=== PATIENT | male | born 1955 | race Caucasian/White ===

== ENCOUNTER 2016-04-17 14:17 | Outpatient (RCR) | payer BC, OTHER ==
[~2016-04-17 14:17] MED LIST: ACHYD1T PO; ASP325T PO; ASP81CT PO; CIPR500T78 PO; FEXO-14 PO; FLC100T1 PO; HCT25T PO; HYDR-3720 PO; HYDR-3812 PO; HYDR-700 PO; LEVO750T9 PO; LOSA50TA6 PO; LSRT50T PO; MAGIC1 PO; OMEP40CA36 PO; RIVA20TA2 PO
[2016-05-15] MEDS ORDERED: ATOR10TA66 PO (10:02)
[2016-05-15] MEDS ORDERED: HYDR-700 PO (10:02)
[2016-05-15] MEDS ORDERED: LEVO25TA5 PO (10:02)
[2016-05-15] MEDS ORDERED: ASPI-999 PO (10:02)
[2016-05-15] MEDS ORDERED: PANT40TA2 PO (13:59)
[2016-05-15] MEDS ORDERED: SUCR1TAB36 PO (13:59)
== END 2016-07-16 | disposition home or self-care (01) ==
LOC: ONC 14:17
PROVIDERS: ATTEND Internal Medicine Hematology & Oncology
DX: C21.0 Malignant neoplasm of anus, unspecified (principal); Z45.2 Encounter for adjustment and management of vascular access device
CPT/HCPCS: 96523; 99213

== ENCOUNTER → 2016-09-02 | Outpatient (CLI) | payer BC ==
[~2016-09-02] MED LIST changes: +ASPI-999 PO; +ATOR10TA66 PO; +LEVO25TA5 PO; +PANT40TA2 PO; +SUCR1TAB36 PO
--- NOTE | 2016-09-02 13:42 | Diagnostic Imaging Report ---
EXAMINATION: Upper and lower extremity pressure measurements of ankle/brachial index and pulse volume recording at the ankle. INDICATION: Claudication FINDINGS: The ankle/brachial index on the right side is 1.1, (1.1 DP, and 1.1 PT) and on the left is 1.1 (1.1 DP, and 1.1 PT). Pulse volume recording waveforms demonstrate no significant abnormality. There is a discrepancy in the brachial artery pressures with 122 systolic pressure in the right arm compared to 141 systolic pressure in the left arm. This could relate to proximal right upper extremity arterial disease. IMPRESSION: Normal BALJINDER, bilaterally. Slight decrease in systolic arterial pressure in the right upper extremity. Correlate clinically and with right upper extremity arterial ultrasound if needed. Dictated by: Dictated on workstation # [id number]
--- NOTE | 2016-09-02 13:48 | Diagnostic Imaging Report ---
PROCEDURE: US Bilateral lower extremity arterial. TECHNIQUE: Multiple real-time grayscale images are obtained through both lower extremity arterial systems with color Doppler imaging and color Doppler spectral analysis. INDICATION: Peripheral vascular disease. FINDINGS: Color Doppler is seen throughout the arteries in both lower extremities with biphasic waveforms seen bilaterally. The grayscale images in the femoropopliteal segments demonstrate minimal intimal atherosclerotic plaque. The velocities are between 66-125 cm/s on the left side and 70-150 cm/s on the right side. IMPRESSION: No evidence of significant atherosclerotic disease in the lower extremities. Dictated by: Dictated on workstation # [id number]
== END ==
LOC: RAD 09:57
PROVIDERS: ATTEND Internal Medicine
DX: I73.9 Peripheral vascular disease, unspecified (principal); I70.1 Atherosclerosis of renal artery
CPT/HCPCS: 93922; 93925

== ENCOUNTER → 2016-09-10 | Outpatient (RCR) | payer OTHER | END | disposition home or self-care (01) | PROVIDERS: ATTEND Orthopaedic Surgery | DX: M75.01 Adhesive capsulitis of right shoulder (principal) ==

== ENCOUNTER → 2016-09-11 | Outpatient (CLI) | payer BC ==
--- NOTE | 2016-09-11 13:18 | Diagnostic Imaging Report ---
PROCEDURE: US Carotid Duplex Bilateral. TECHNIQUE: Multiple real-time grayscale images were obtained over the carotid arteries in various projections bilaterally. Additional duplex Doppler and color Doppler images were also obtained. INDICATION: Carotid artery stenosis. FINDINGS: Mild atherosclerotic plaque is seen along the carotid bifurcation. There is color Doppler demonstrating patency of the common, internal and external carotid arteries bilaterally. There is antegrade flow noted in the vertebral arteries on both sides. Peak systolic velocities are 69, 97 and 88 cm/s in the right and 72, 96 and 84 cm/s in the left ICA from proximal to distal. ICA/CCA ratios are up to 1.1 on the right and up to 0.8 on the left. IMPRESSION: Mild atherosclerotic plaque with estimated underlying stenosis in the range of 0-40% bilaterally. Dictated by: Dictated on workstation # [id number]
== END ==
LOC: RAD 09:52
PROVIDERS: ATTEND Internal Medicine
DX: I65.29 Occlusion and stenosis of unspecified carotid artery (principal)
CPT/HCPCS: 93880

== ENCOUNTER 2016-10-15 15:25 | Outpatient (RCR) | payer BC, OTHER ==
[2016-12-26] MEDS ORDERED: ATOR10TA66 PO (11:33)
[2016-12-26] MEDS ORDERED: LEVO25TA5 PO (11:33)
[2016-12-26] MEDS ORDERED: PANT40TA3 PO (11:33)
== END 2017-01-13 | disposition home or self-care (01) ==
LOC: ONC 15:25
PROVIDERS: ATTEND Internal Medicine Hematology & Oncology
DX: Z08 Encounter for follow-up examination after completed treatment for malignant neoplasm (principal); Z85.048 Personal history of other malignant neoplasm of rectum, rectosigmoid junction, and anus; D66 Hereditary factor VIII deficiency; I10 Essential (primary) hypertension; E78.00 Pure hypercholesterolemia, unspecified; K21.9 Gastro-esophageal reflux disease without esophagitis; Z86.711 Personal history of pulmonary embolism; Z86.718 Personal history of other venous thrombosis and embolism; Z79.01 Long term (current) use of anticoagulants; Z79.899 Other long term (current) drug therapy; Z92.3 Personal history of irradiation
CPT/HCPCS: 99213

== ENCOUNTER 2016-11-07 13:00 | Outpatient (RCR) | payer OTHER | END 2016-11-07 13:24 | disposition home or self-care (01) | PROVIDERS: ATTEND Orthopaedic Surgery | DX: M75.01 Adhesive capsulitis of right shoulder (principal) ==

== ENCOUNTER → 2016-12-05 | Outpatient (CLI) | payer BC | LOC: PREOP 06:52 | PROVIDERS: ATTEND Surgery | DX: Z01.818 Encounter for other preprocedural examination (principal); C21.0 Malignant neoplasm of anus, unspecified ==

== ENCOUNTER 2016-12-26 05:40 | Outpatient (CLI) | payer BC ==
[~2016-12-26] VITALS: Ht 172.7 cm; Wt 72.6 kg
[2016-12-26] MEDS ORDERED: ATOR10TA66 PO (11:33)
[2016-12-26] MEDS ORDERED: PANT40TA3 PO (11:33)
[2016-12-26] MEDS ORDERED: LEVO25TA5 PO (11:33)
== END 2016-12-26 11:43 ==
LOC: PREOP 05:40
PROVIDERS: ATTEND Surgery
DX: Z01.818 Encounter for other preprocedural examination (principal); Z12.11 Encounter for screening for malignant neoplasm of colon; C21.0 Malignant neoplasm of anus, unspecified

== ENCOUNTER 2016-12-27 11:30 | Day surgery (SDC) | payer BC ==
[~2016-12-27] VITALS: Ht 172.7 cm; Wt 72.6 kg
[~2016-12-27 11:30] MED LIST changes: +PANT40TA3 PO
[2016-12-27] MEDS ORDERED: NS IV 500 ML 500 ML ONE (11:44)
--- NOTE | 2016-12-27 11:47 | Conscious Sedation/ASA ---
Conscious Sedation Pre-Proced Time Reviewed: 11:40 ASA Class: 2 Airway Mallampati Classification: ([place] appropriate class) I. II. III, IV Lungs Heart ASA score ASA 1: a normal healthy patient ASA 2: a patient with a mild systemic disease (mid diabetes, controlled hypertension, obesity ASA 3: a patient with a severe systemic disease that limits activity (angina , COPD, prior Myocardial infarction) ASA 4: a patient with an incapacitating disease that is a constant threat to life (CHF, renal failure) ASA 5: a moribund patient not expected to survive 24 hrs. (ruptured aneurysm) ASA 6: a declared brain patient whose organs are being harvested. For emergent operations, add the letter E after the classification Grade 2 Sedation Plan: Analgesia, Amnesia, Plan communicated to team members, Discussed options with patient/fam, Discussed risks with patient/fam Note The patient is an appropriate candidate to undergo the planned procedure, sedation, and anesthesia. The patient immediately re-assessed prior to indication. ROBERT ALBERTS MD Dec 27, 2016 11:47 am
--- NOTE | 2016-12-27 11:48 | Conscious Sedation/ASA ---
Conscious Sedation Pre-Proced Time Reviewed: 11:40 ASA Class: 2 Airway Mallampati Classification: ([place] appropriate class) I. II. III, IV Lungs Heart ASA score ASA 1: a normal healthy patient ASA 2: a patient with a mild systemic disease (mid diabetes, controlled hypertension, obesity ASA 3: a patient with a severe systemic disease that limits activity (angina , COPD, prior Myocardial infarction) ASA 4: a patient with an incapacitating disease that is a constant threat to life (CHF, renal failure) ASA 5: a moribund patient not expected to survive 24 hrs. (ruptured aneurysm) ASA 6: a declared brain patient whose organs are being harvested. For emergent operations, add the letter E after the classification Grade 2 Sedation Plan: Analgesia, Amnesia, Plan communicated to team members, Discussed options with patient/fam, Discussed risks with patient/fam Note The patient is an appropriate candidate to undergo the planned procedure, sedation, and anesthesia. The patient immediately re-assessed prior to indication. ROBERT ALBERTS MD Dec 27, 2016 11:48 am
--- NOTE | 2016-12-27 11:49 | Progress Note-Pre Operative ---
Pre-Operative Progress Note H&P Reviewed The H&P was reviewed, patient examined and no changes noted. Date Seen by Provider: Dec 27, 2016 Time Seen by Provider: 11:45 Date H&P Reviewed: Dec 27, 2016 Time H&P Reviewed: 11:40 Pre-Operative Diagnosis: hx anal cell cancer ROBERT ALBERTS MD Dec 27, 2016 11:49 am
[2016-12-27] MEDS ORDERED: HYDROcodone/APAP 5 MG/325 MG (LORTAB) TAB PO PRN (12:00)
[2016-12-27] MEDS ORDERED: ACETAMINOPHEN 325 MG TABLET/CAPLET (TYLENOL) PO PRN (12:00)
[2016-12-27] MEDS ORDERED: morphine INJ 10 MG/ML 1ML (SYR OR VIAL) IV PRN (12:00)
[2016-12-27] MEDS ORDERED: ONDANSETRON 4 MG/2 ML (SDV) Z0FRAN IV PRN (12:00)
[2016-12-27] MEDS ORDERED: NS IV 500 ML 500 ML IV PRN (12:30)
[2016-12-27] MEDS ORDERED: MIDAZOLAM 2 MG/2 ML (VERSED) VIAL ONE ×4 (12:40→13:12)
[2016-12-27] MEDS ORDERED: fentaNYL INJECTION 100 MCG/2 ML AMP ONE ×2 (12:40→13:05)
[2016-12-27] MEDS: fentaNYL INJECTION 100 MCG/2 ML AMP IVP PRN ×4 (12:42→13:15)
[2016-12-27] MEDS: MIDAZOLAM 2 MG/2 ML (VERSED) VIAL IVP PRN ×4 (12:45→13:20)
[2016-12-27 13:50] VITALS: BP 92/60
--- NOTE | 2016-12-27 14:19 | Progress Note-Post Operative ---
Post-Operative Progess Note Surgeon (s)/Chalk Tester (s) Surgeon ROBERT ALBERTS MD Chalk Tester: none Pre-Operative Diagnosis hx anal cell cancer Post-Operative Diagnosis chronic stage 2 ext and int hemorrhoids, mild distal anal stricture. Procedure & Operative Findings Date of Procedure 12/27/16 Procedure Performed/Findings Colonoscopy with bx. Anesthesia Type CS Estimated Blood Loss Estimated blood loss (mL): minimal Specimens/Packing Specimens Removed distal anal stricture ROBERT ALBERTS MD Dec 27, 2016 2:19 pm
[2016-12-27 14:20] VITALS: BP 123/85
--- NOTE | 2016-12-27 14:20 | Discharge Inst-Surgical ---
D/C Lap Instructions-ARISTEO Follow Up 5 years. Activity as tolerated High Fiber Diet 25g or more per day Avoid Alcohol, Caffeine, Spicy [place] and Acid foods. Drink 64 fluid oz or more of fluids per day. Symptoms to Report: Fever over 101 degree F, Nausea/Vomiting If any problems/questions: Contact your physician or go to Emergency Room ROBERT ALBERTS MD Dec 27, 2016 2:20 pm
[2016-12-27 14:46] VITALS: BP 123/85
--- NOTE | 2016-12-27 15:27 | OPERATIVE REPORT ---
DATE OF SERVICE: 12/27/2016 ATTENDING PRIMARY CARE PHYSICIAN: Dr. Holbrook. PREOPERATIVE DIAGNOSIS: History of anal cell cancer. POSTOPERATIVE DIAGNOSIS: 1. Mild chronic stage II external and internal hemorrhoids. 2. No recurrent tumor. 3. Moderate sigmoid diverticulosis. PROCEDURE: Colonoscopy with biopsy. SURGEON: Dr. Alberts. ANESTHESIA: Conscious sedation. ESTIMATED BLOOD LOSS: Minimal. FINDINGS: Chronic stage II external and internal hemorrhoids. There was a mild palpable stricture; however, no recurrent tumor. Moderate sigmoid diverticulosis with no mucosal inflammatory changes. The remainder of the colon was normal. DISPOSITION: The patient tolerated the procedure well. The patient is a 61-year-old man who had initially seen md in 2009. At the time he was experiencing constipation and hemorrhoidal flareups. A colonoscopy was performed in November 2009 which showed chronic stage II external and internal hemorrhoids as well as a moderate sigmoid diverticulosis. In 2013, he had developed diarrhea as well as increased flatulence and blood per rectum. He was found to have a lesion in the anal canal which was circumferential and hard. This was biopsied and consistent with a moderately differentiated squamous cell cancer. He was referred to radiation oncology and underwent a combination of chemotherapy and radiation through 03/2014. He has undergone followup colonoscopies in 05/2014 where biopsies were taken which were benign. He then underwent another followup colonoscopy in 08/2015 and again a ridge of fibrous tissue was identified; however, biopsies negative for malignancy. At this time, he states that he is doing well and tolerating a regular diet and having normal bowel movements. The patient was brought to the endoscopy suite, laid in the left lateral decubitus position. After adequate IV pain and sedative medications and conscious sedation anesthesia, a digital rectal examination was performed. Chronic stage II external and internal hemorrhoids were identified which were not actually edematous or inflamed and no bleeding. Normal sphincter tone was felt. A rim along the squamocolumnar epithelial junction was identified which was thin and nonfirm and no palpable masses, more likely consistent with a benign stricture. This was then visualized by endoscopy and again is most likely consistent with a benign stricture. Prostate gland was palpable and appeared normal. The endoscope was then intubated into the anus and several biopsies were taken of the stricture with forceps, with visualization of good hemostasis. The endoscope was then advanced to the sigmoid colon where a moderate sigmoid diverticulosis was identified. There were no mucosal inflammatory changes to indicate any active diverticulitis. The endoscope was then advanced through the remainder of the descending, transverse and ascending colon the cecum. These segments were normal. There were no polyps or any neoplasms identified. The endoscope was then slowly withdrawn taking a second look and suctioning of residual air with no additional findings. The patient tolerated the procedure well. We will recommend continued medical management with a high fiber diet with at least 30 grams of fiber per day as well as at least 64 fluid ounces of water to promote soft stools on a daily basis. Since his therapy for the squamous cell cancer results have been benign, his last tumor was and at this time this colonoscopy appears to be benign. We will recommend further surveillance at the discretion of oncology as well as symptomatology. Job ID: [id number] DocumentID: [id number] Dictated Date: 12/27/2016 13:35:59 Microbiology Coordinator Date: 12/27/2016 15:26:36 Dictated By: ROBERT ALBERTS MD
== END 2016-12-27 14:35 | disposition home or self-care (01) ==
LOC: ENDO 11:30
PROVIDERS: ATTEND Surgery
DX: Z08 Encounter for follow-up examination after completed treatment for malignant neoplasm (principal); Z85.048 Personal history of other malignant neoplasm of rectum, rectosigmoid junction, and anus; K64.1 Second degree hemorrhoids; K57.30 Diverticulosis of large intestine without perforation or abscess without bleeding; E78.00 Pure hypercholesterolemia, unspecified; I10 Essential (primary) hypertension; K21.9 Gastro-esophageal reflux disease without esophagitis; I73.9 Peripheral vascular disease, unspecified; Z86.73 Personal history of transient ischemic attack (TIA), and cerebral infarction without residual deficits; Z92.21 Personal history of antineoplastic chemotherapy; Z92.3 Personal history of irradiation; Z79.899 Other long term (current) drug therapy

== ENCOUNTER 2017-04-10 08:37 | Outpatient (RCR) | payer BC ==
[~2017-04-10 08:37] MED LIST changes: +ACHD5005 PO; -HYDR-3812 PO
== END 2017-07-09 | disposition home or self-care (01) ==
LOC: ONC 08:37
PROVIDERS: ATTEND Internal Medicine Hematology & Oncology
DX: Z08 Encounter for follow-up examination after completed treatment for malignant neoplasm (principal); Z85.048 Personal history of other malignant neoplasm of rectum, rectosigmoid junction, and anus; D66 Hereditary factor VIII deficiency; I10 Essential (primary) hypertension; E78.00 Pure hypercholesterolemia, unspecified; K21.9 Gastro-esophageal reflux disease without esophagitis; H53.9 Unspecified visual disturbance; Z86.711 Personal history of pulmonary embolism; Z86.718 Personal history of other venous thrombosis and embolism; Z79.01 Long term (current) use of anticoagulants; Z79.899 Other long term (current) drug therapy; Z92.3 Personal history of irradiation
CPT/HCPCS: 99213

== ENCOUNTER 2017-08-28 08:30 | Outpatient (RCR) | payer BC | END 2017-11-26 | disposition home or self-care (01) | LOC: ONC 08:30 | PROVIDERS: ATTEND Internal Medicine Hematology & Oncology | DX: Z08 Encounter for follow-up examination after completed treatment for malignant neoplasm (principal); Z85.048 Personal history of other malignant neoplasm of rectum, rectosigmoid junction, and anus; D66 Hereditary factor VIII deficiency; I10 Essential (primary) hypertension; E78.00 Pure hypercholesterolemia, unspecified; K21.9 Gastro-esophageal reflux disease without esophagitis; H53.9 Unspecified visual disturbance; Z86.711 Personal history of pulmonary embolism; Z86.718 Personal history of other venous thrombosis and embolism; Z79.01 Long term (current) use of anticoagulants; Z79.899 Other long term (current) drug therapy; Z92.3 Personal history of irradiation | CPT/HCPCS: 99213 ==

== ENCOUNTER 2018-02-25 09:29 | Outpatient (RCR) | payer BC ==
[2018-03-11] MEDS ORDERED: LOSA50TA7 PO (11:02)
[2018-03-11] MEDS ORDERED: RIVA20TA PO (11:03)
[2018-03-11] MEDS ORDERED: HYDR-700 PO (11:03)
[2018-03-11] MEDS ORDERED: ASPI325T32 PO (11:03)
[2018-03-11] MEDS ORDERED: ASPI-983 PO (11:03)
[2018-03-11] MEDS ORDERED: CALC300T4 PO (11:05)
[2018-03-12] MEDS ORDERED: ATOR80TA76 PO (10:37)
[2018-03-12] MEDS ORDERED: ASPI-983 PO (13:51)
[2018-03-18] MEDS ORDERED: ATOR80TA76 PO (15:50)
== END 2018-05-26 | disposition home or self-care (01) ==
LOC: ONC 09:29
PROVIDERS: ATTEND Internal Medicine Hematology & Oncology
DX: Z08 Encounter for follow-up examination after completed treatment for malignant neoplasm (principal); Z85.048 Personal history of other malignant neoplasm of rectum, rectosigmoid junction, and anus; D66 Hereditary factor VIII deficiency; I10 Essential (primary) hypertension; E78.00 Pure hypercholesterolemia, unspecified; K21.9 Gastro-esophageal reflux disease without esophagitis; H53.9 Unspecified visual disturbance; Z86.711 Personal history of pulmonary embolism; Z86.718 Personal history of other venous thrombosis and embolism; Z79.01 Long term (current) use of anticoagulants; Z79.899 Other long term (current) drug therapy; Z92.3 Personal history of irradiation
CPT/HCPCS: 99213

== ENCOUNTER 2018-03-10 11:14 | Inpatient (IN) | payer BC ==
[~2018-03-10] VITALS: Ht 172.7 cm; Wt 75.2 kg
[2018-03-10] VITALS (17 sets, daily range): BP systolic 104–155; BP diastolic 62–98
[2018-03-10 11:34] LABS: BASOPHILS % (AUTO) 0 % (0-10); EOSINOPHILS % (AUTO) 1 % (0-10); HEMATOCRIT 33 % (40-54); HEMOGLOBIN 10.3 G/DL (13.3-17.7); LYMPHOCYTES # (AUTO) 1.7 X 10^3 (1.0-4.0); LYMPHOCYTES % (AUTO) 34 % (12-44); MEAN CORPUSCULAR HEMOGLOBIN 23 PG (25-34); MEAN CORPUSCULAR HGB CONC 31 G/DL (32-36); MEAN CORPUSCULAR VOLUME 73 FL (80-99); MEAN PLATELET VOLUME 8.7 FL (7.4-10.4); MONOCYTES # (AUTO) 0.8 X 10^3 (0.0-1.0); MONOCYTES % (AUTO) 15 % (0-12); NEUTROPHILS # (AUTO) 2.5 X 10^3 (1.8-7.8); NEUTROPHILS % (AUTO) 50 % (42-75); PLATELET COUNT 320 10^3/uL (130-400); RED BLOOD COUNT 4.51 10^6/uL (4.35-5.85); RED CELL DISTRIBUTION WIDTH 20.7 % (10.0-14.5)
[2018-03-10] MEDS ORDERED: NS 250 ML (IVPB) BAG IV ONE (11:45)
[2018-03-10] MEDS ORDERED: IOHEXOL 350 MG/ML 100 ML (OMNIPAQUE 350) VIAL IV ONE (11:45)
[2018-03-10 11:54] LABS: FIBRIN DEGRADATION PRODUCTS 0.47 UG/ML (0.00-0.49); PROTHROMBIN TIME PATIENT 22.9 SEC (12.2-14.7)
[2018-03-10 11:58] LABS: ALANINE AMINOTRANSFERASE 14 U/L (0-55); ALBUMIN 4.2 GM/DL (3.2-4.5); ALKALINE PHOSPHATASE 46 U/L (40-136); BILIRUBIN,TOTAL 0.5 MG/DL (0.1-1.0); BUN/CREATININE RATIO 11; CALCIUM 9.7 MG/DL (8.5-10.1); CARBON DIOXIDE 19 MMOL/L (21-32); CHLORIDE 105 MMOL/L (98-107); CREATININE SERUM 1.23 MG/DL (0.60-1.30); GFR ESTIMATED 59; GLUCOSE 104 MG/DL (70-105); POTASSIUM 3.8 MMOL/L (3.6-5.0); SODIUM 136 MMOL/L (135-145); TOTAL PROTEIN 7.9 GM/DL (6.4-8.2)
--- NOTE | 2018-03-10 12:29 | Diagnostic Imaging Report ---
PROCEDURE: CT angiography of the head and CT angiography of the neck with and without contrast. TECHNIQUE: Contiguous noncontrast images were obtained from the skull base through the vertex. After intravenous contrast administration, helical CT angiography of the neck was performed. Source data was reformatted into multiple 2D MIP projections. Delayed post contrast acquisition was also obtained. INDICATION: Left arm and leg numbness. Dizziness. Fall. COMPARISON: CT cervical spine without contrast 03/10/2018. FINDINGS: Noncontrast head CT demonstrates moderate generalized cerebral and cerebellar parenchymal volume loss. 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 No CT evidence of an acute infarct. No intracranial hemorrhage, mass effect, hydrocephalus or extra-axial fluid collections. No abnormal intracranial enhancement on delayed postcontrast imaging. The calvarium and skull base are intact. The paranasal sinuses and mastoids are clear. CTA demonstrates conventional aortic arch. The basilar, bilateral carotid, vertebral, anterior cerebral, middle cerebral and posterior cerebral arteries are widely patent without evidence of aneurysm or dissection. The dural venous sinuses are patent. Advanced spondylotic changes in the cervical spine are greatest at C4-C7. No acute osseous findings. No evidence of high-grade spinal canal narrowing on this non-intrathecal contrast exam. The visualized paravertebral soft tissues are unremarkable. The lung apices are clear. IMPRESSION: 1. No acute intracranial CT findings. 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 2. No high-grade arterial narrowing, aneurysm or dissection involving the major arteries in the head and neck. Dictated by: Dictated on workstation # [id number]
--- NOTE | 2018-03-10 12:42 | Diagnostic Imaging Report ---
PROCEDURE: CT cervical spine without contrast. TECHNIQUE: Multiple contiguous axial images were obtained through the cervical spine without the use of intravenous contrast. Sagittal and coronal reformations were then performed. INDICATION: Trauma. Fall. COMPARISON: CTA head and neck also performed today. FINDINGS: Minimal anterolisthesis of C3 on C4 and retrolisthesis of C5 on C6. Alignment is otherwise unremarkable. Vertebral body heights are preserved. No fractures. Advanced degenerative endplate changes are greatest at C4-C7. No evidence of high-grade spinal canal narrowing on this non-intrathecal contrast exam. The visualized paravertebral soft tissues are unremarkable. The lung apices are clear. IMPRESSION: 1. Advanced spondylotic changes in the cervical spine are greatest at C4-C7. 2. No acute CT findings. Dictated by: Dictated on workstation # [id number]
--- NOTE | 2018-03-10 12:50 | Diagnostic Imaging Report ---
INDICATION: Syncopal episode. TIME OF EXAM: 12:19 PM Correlation is made with prior study from 12/11/2015. FINDINGS: The heart size is stable. Lungs appear to be clear. No infiltrates are seen. No effusion or pneumothorax is detected. IMPRESSION: No acute abnormality is detected. Dictated by: Dictated on workstation # [id number]
[2018-03-10] MEDS ORDERED: TETANUS,DIPTH,PERTUSS P/F (BOOSTRIX) 0.5 ML VIAL IM ONE (13:30)
[2018-03-10 14:12] LABS: BILIRUBIN,URINE NEGATIVE (NEGATIVE); CLARITY,URINE CLEAR; COLOR,URINE YELLOW; GLUCOSE, URINE (UA) NEGATIVE (NEGATIVE); KETONES,URINE NEGATIVE (NEGATIVE); LEUKOCYTE ESTERASE ,URINE NEGATIVE (NEGATIVE); NITRITE,URINE NEGATIVE (NEGATIVE); PH,URINE 5 (5-9); PROTEIN,URINE NEGATIVE (NEGATIVE); UROBILINOGEN,URINE NORMAL (NORMAL)
[2018-03-10 14:18] LABS: BACTERIA,URINE NEGATIVE /HPF
--- NOTE | 2018-03-10 15:29 | ED Neurological Problem ---
General Chief Complaint: Neuro-Stroke Like Symptoms Stated Complaint: HEAD INJ Nursing Triage Note: pt presents to ed with complaints of l sided weakness in arm and leg after falling over when working outside. pt states he was doing some physical labor when working and felt lightheaded. pt states he tried to assist himself to the groung but fell backwards hitting head on brick wall. pt states he does has hx of blood clots and takes xeralto. pt denies head or neck pain or loc. pt last known well time was around 1045. Nursing Sepsis Screen: No Definite Risk Source: patient, EMS Exam Limitations: no limitations History of Present Illness Date Seen by Provider: Mar 10, 2018 Time Seen by Provider: 11:15 Initial Comments This 62-year-old man presents to the emergency room via EMS after collapsing and falling into a wall while working outside. He struck the back of his head on the wall resulting in a laceration. He denies any loss of consciousness. Patient states sudden onset of weakness in his legs was the cause of his fall. He has persistent weakness in the left leg and in the left arm on arrival. Stroke activation was paged and patient was taken fairly promptly to CT scan. I -STAT was performed to confirm acceptable creatinine before CT angiogram of the head and neck was performed. Patient has a history of DVT and stroke. He is presently on Xarelto for prophylaxis. Patient drinks daily but has not had any alcohol today. Patient did take his Xarelto this morning. Allergies and Home Medications Allergies Coded Allergies: lisinopril (Verified Allergy, Severe, LIPS SWELLING, 12/26/16) Nitrate (Verified Allergy, Intermediate, HIVES, 12/26/16) amlodipine besylate (Verified Adverse Reaction, Unknown, LOW BP, 12/26/16) Uncoded Allergies: MARIANNA (Adverse Reaction, Intermediate, COLD, 01/30/12) Home Medications Aspirin 81 Mg Tab.chew, 81 MG PO DAILY Prescribed by: MARK ARRIETA on 05/15/16 1002 Atorvastatin Calcium 10 Mg Tablet, 10 MG PO HS, (Reported) Levothyroxine Sodium 25 Mcg Tablet, 25 MCG PO DAILY, (Reported) Losartan Potassium 50 Mg Tab, 50 MG PO DAILY, (Reported) Pantoprazole Sodium 40 Mg Tablet.dr, 40 MG PO DAILY, (Reported) Rivaroxaban 20 Mg Tablet, 20 MG PO DAILY, (Reported) Patient Home Medication List Home Medication List Reviewed: Yes Review of Systems Review of Systems Constitutional: no symptoms reported Eyes: No Symptoms Reported Ears, Nose, Mouth, Throat: no symptoms reported Respiratory: no symptoms reported Cardiovascular: no symptoms reported Gastrointestinal: no symptoms reported Genitourinary: no symptoms reported Musculoskeletal: see HPI Skin: see HPI Psychiatric/Neurological: See HPI Endocrine: No Symptoms Reported Hematologic/Lymphatic: No Symptoms Reported Past Mmkofqr-Ztfwjl-Saslcs Hx Patient Social History Alcohol Use: Regular Use Number of Drinks Today: Alcohol Beverage of Choice: Beer, Wine Recreational Drug Use: No Smoking Status: Former Smoker Former Smoker, Quit: May 14, 1973 Recent Foreign Travel: No Contact w/Someone Who Travel: No Recent Infectious Disease Expo: No Recent Hopitalizations: No Physical Abuse: No Sexual Abuse: No Mistreated: No Fear: No Immunizations Up To Date Tetanus Booster (TDap): More than 5yrs PED Vaccines UTD: Yes Seasonal Allergies Seasonal Allergies: No Past Medical History Surgeries: Yes (Port placement and removal) Respiratory: No Cardiac: Yes Deep Vein Thrombosis, High Cholesterol, Hypertension Neurological: Yes Stroke (Involving retinal artery) Reproductive Disorders: No Sexually Transmitted Disease: No HIV/AIDS: No Genitourinary: No Gastrointestinal: Yes Gastroesophageal Reflux, Hemorrhoids, Hiatal Hernia Musculoskeletal: No Endocrine: Yes Hypothyroidsim HEENT: Yes Eye Injury Loss of Vision: Denies Hearing Impairment: Denies Cancer: No Did You Recieve Any Treatments: Yes What Type of Treatment Did You: Chemotherapy, Radiation Psychosocial: Yes (Alcohol dependence) Adverse Reaction/Blood Tranf: No (N/A) Family Medical History Cardiovascular disease Hypercholesterolemia Hypertension Myocardial infarction Osteoporosis No Family History of: AIDS Abdominal aortic aneurysm [place]'s disease Alcoholism Alzheimer's disease Aphasia Arthritis Asthma Cancer of mouth Cataracts Colon cancer Completed stroke Congenital disease Congenital heart disease Coronary thrombosis Cystic fibrosis Deafness or hearing loss Dementia Diabetes mellitus Drug abuse Dysphasia Fibrocystic disease of breast Gastroenteritis Glaucoma Headache disorder Infertility Kidney disease Neoplasm Not obtainable due to adoption Parkinson's disease Prostate cancer Psychosocial problem Respiratory disorder Seizure disorder Severe allergy Thyroid disease Tuberculosis Visual disorder Physical Exam Vital Signs Vital Signs - First Documented 03/10/18 11:15 Temp 98.2 Pulse 128 Resp 16 B/P (MAP) 151/105 (120) Pulse Ox 98 O2 Delivery Room Air Capillary Refill : Less Than 3 Seconds Height, Weight, BMI Height: 5'8.00" Weight: 170lbs. 0.8oz. 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, alert, normal mood/affect, oriented x 3, motor weakness (Left lower extremity weakness) Crainal Nerves: normal hearing, normal speech, PERRL Coordination/Gait: normal finger to nose Motor/Sensory: no sensory deficit, weak motor strength LLE Skin: normal color, warm/dry Stroke Onset of Symptoms Date of Onset of Symptoms: Mar 10, 2018 NIH Stroke Scale Assessment Level of Consciousness: 0=Alert (0), Level of Consciousness-Questions: 0= Answers both month/age (0), LOC Commands: 0=Performs both tasks (0), Visual Tello: 0=No visual loss (0), Facial Movement (Facial Paresis): 0=Normal symmetrical mnt (0), Motor Function-Arms Right: 0=No drift (0), Motor Function- Arms Left: 0=No drift (0), Motor Function-Legs Right: 0=No drift (0), Motor Function-Legs Left: 1=Drift (1), Limb Ataxia: 1=Present in one limb (1), Sensory : 0=Normal:no loss (0), Best Language: 0=No aphasia (0), Dysarthria: 0=Normal (0 ), Extinction & Inattention: 0=No abnormality (0), Total: 2 Stroke Thrombolytic Exclusion Age 18 or Over: Yes History of CVA: No Severe Hypertension: No GI or Bleed: No Subarachnoid Hemorrhage: No Intracranial Neoplasm/Aneurysm: No Puncture of Non-Compressible V: No Recent CPR: No Diabetic Hemorrhagic Retinopat: No Organ Biopsy: No Recent Obstetric Delivery: No Significant Hepatic Dysfunctio: No NIH Stoke Scale >22: No Improving Symptoms: Yes Progress/Results/Core Measures Results/Orders Lab Results Laboratory Tests Test 03/10/18 11:24 03/10/18 14:06 Range/Units White Blood Count 5.0 4.3-11.0 10^3/uL Red Blood Count 4.51 4.35-5.85 10^6/uL Hemoglobin 10.3 L 13.3-17.7 G/DL Hematocrit 33 L 40-54 % Mean Corpuscular Volume 73 L 80-99 FL Mean Corpuscular Hemoglobin 23 L 25-34 PG Mean Corpuscular Hemoglobin Concent 31 L 32-36 G/DL Red Cell Distribution Width 20.7 H 10.0-14.5 % Platelet Count 320 130-400 10^3/uL Mean Platelet Volume 8.7 7.4-10.4 FL Neutrophils (%) (Auto) 50 42-75 % Lymphocytes (%) (Auto) 34 12-44 % Monocytes (%) (Auto) 15 H 0-12 % Eosinophils (%) (Auto) 1 0-10 % Basophils (%) (Auto) 0 0-10 % Neutrophils # (Auto) 2.5 1.8-7.8 X 10^3 Lymphocytes # (Auto) 1.7 1.0-4.0 X 10^3 Monocytes # (Auto) 0.8 0.0-1.0 X 10^3 Eosinophils # (Auto) 0.0 0.0-0.3 10^3/uL Basophils # (Auto) 0.0 0.0-0.1 10^3/uL Prothrombin Time 22.9 H 12.2-14.7 SEC INR Comment 2.0 H 0.8-1.4 Activated Partial Thromboplast Time 54 H 24-35 SEC D-Dimer 0.47 0.00-0.49 UG/ML Sodium Level 136 135-145 MMOL/L Potassium Level 3.8 3.6-5.0 MMOL/L Chloride Level 105 98-107 MMOL/L Carbon Dioxide Level 19 L 21-32 MMOL/L Anion Gap 12 5-14 MMOL/L Blood Urea Nitrogen 13 7-18 MG/DL Creatinine 1.23 0.60-1.30 MG/DL Estimat Glomerular Filtration Rate 59 BUN/Creatinine Ratio 11 Glucose Level 104 70-105 MG/DL Calcium Level 9.7 8.5-10.1 MG/DL Corrected Calcium 9.5 8.5-10.1 MG/DL Total Bilirubin 0.5 0.1-1.0 MG/DL Aspartate Amino Transf (AST/SGOT) 22 5-34 U/L Alanine Aminotransferase (ALT/SGPT) 14 0-55 U/L Alkaline Phosphatase 46 40-136 U/L Troponin I < 0.30 <0.30 NG/ML Total Protein 7.9 6.4-8.2 GM/DL Albumin 4.2 3.2-4.5 GM/DL Serum Alcohol < 10 <10 MG/DL Urine Color YELLOW Urine Clarity CLEAR Urine pH 5 5-9 Urine Specific Hodgen 1.010 L 1.016-1.022 Urine Protein NEGATIVE NEGATIVE Urine Glucose (UA) NEGATIVE NEGATIVE Urine Ketones NEGATIVE NEGATIVE Urine Nitrite NEGATIVE NEGATIVE Urine Bilirubin NEGATIVE NEGATIVE Urine Urobilinogen NORMAL NORMAL MG/DL Urine Leukocyte Esterase NEGATIVE NEGATIVE Urine RBC (Auto) NEGATIVE NEGATIVE Urine RBC NONE /HPF Urine WBC NONE /HPF Urine Crystals NONE /LPF Urine Bacteria NEGATIVE /HPF Urine Casts NONE /LPF Urine Mucus NEGATIVE /LPF Urine Culture Indicated NO My Orders Orders - TIM HALEY MD Cbc With Automated Diff (03/10/18:) Protime With Inr (03/10/18:25) Partial Thromboplastin Time (03/10/18:25) Comprehensive Metabolic Panel (03/10/18:25) Fibrin Degradation Products (03/10/18:25) Troponin I (03/10/18 11:25) Ua Culture If Indicated (03/10/18:25) Chest 1 View, Ap/Pa Only (03/10/18:) Ekg Tracing (03/10/18:25) Nothing By Mouth (03/10/18 Dinner) Accucheck Stat ONCE (03/10/18:) Saline Lock/Iv-Start (03/10/18:25) Saline Lock/Iv-Start (03/10/18:) Vital Signs Stroke Patient Q15M (03/10/18 11:25) O2 (03/10/18:25) Intake & Output 06,14,22 (03/10/18 11:25) Monitor-Rhythm Ecg Trace Only (03/10/18:25) Dysphagia Screening Tool (03/10/18 11:25) Post Thrombolytic Adminstratio (03/10/18 11:25) Lipid Panel (03/11/18 06:00) Ct Angio Head/Neck (03/10/18 11:33) Ct Cervical Spine Wo (03/10/18 11:33) Iohexol Injection (Omnipaque 350 Mg/Ml 1 (03/10/18 11:45) Ns (Ivpb) (Sodium Chloride 0.9%) (03/10/18 11:45) Dipht,Pertuss(Acell),Tet Adult (Boostrix (03/10/18 13:30) Alcohol (03/10/18 14:25) Medications Given in ED Current Medications Medications Dose Ordered Sig/Eliceo Route Start Time Stop Time Status Last Admin Dose Admin Diphtheria/ Tetanus/Acell Pertussis 0.5 ml ONCE ONCE IM 03/10/18 13:30 03/10/18 13:31 DC 03/10/18 14:44 0.5 ML Iohexol 75 ml ONCE ONCE IV 03/10/18 11:45 03/10/18 11:46 DC 03/10/18 11:42 75 ML Sodium Chloride 250 ml ONCE ONCE IV 03/10/18 11:45 03/10/18 11:46 DC 03/10/18 11:43 80 ML Vital Signs/I&O 03/10/18 11:15 Temp 98.2 Pulse 128 Resp 16 B/P (MAP) 151/105 (120) Pulse Ox 98 O2 Delivery Room Air Blood Pressure Mean: 120 iStat Bedside Lab Testing Sodium (Na): 137.00 Potassium (K): 4.60 Chloride (CI): 106.00 TCO2: 23.00 Glucose (Glu): 105.00 Urea Nitrogen (BUN)/Urea: 15.00 Creatinine (Crea): 1.10 Anion Gap*: 13.00 Progress Progress Note : Progress Note Stroke activation was paged and patient was promptly taken to CT for angiogram of the head and neck as well as imaging of the cervical spine. I-STAT was performed before the angiogram to ensure appropriate renal function. Creatinine on the i-STAT was 1.1. CT angiogram revealed no evidence of CVA, hemorrhage, or large vessel occlusion. Case was discussed with Dr. Mahajan, stroke urologist at [facility]. She agreed patient was not a TPA candidate due to Xarelto use and head trauma. She believes patient's symptoms are suspicious for stroke. She recommended treating him appropriately and obtaining MRI during the admission. Patient had waxing and waning left lower extremity function. I did attempt to stand him up and walk him but he was unable to fully bear weight on the left leg. Patient was cleared from a trauma perspective in the ER. Trauma consultation was not necessary. Admission was for the stroke. Laceration on the scalp was cleaned with sterile saline and chlorhexidine. It did not require repair. Initial ECG Impression Date: Mar 10, 2018 Initial ECG Impression Time: 11:58 Initial ECG Rate: 81 Initial ECG Rhythm: Normal Sinus Initial ECG Intervals: Normal Initial ECG Impression: Normal Comment Normal sinus rhythm with no ST elevation or depression. No abnormal intervals or axis deviation. Diagnostic Imaging Diagonstic Imaging: CT Plain Films/CT/US/NM/MRI: head Comments CT angiogram head and neck viewed by me and report reviewed. See report below: NAME: MANOLO SANCHEZ [facility] REC#: [id number] PT STATUS: ADM IN : 1955 PHYSICIAN: TIM HALEY MD ADMIT DATE: 03/10/18/ICU Signed Date of Exam: 03/10/18 CT ANGIO HEAD/NECK PROCEDURE: CT angiography of the head and CT angiography of the neck with and without contrast. TECHNIQUE: Contiguous noncontrast images were obtained from the skull base through the vertex. After intravenous contrast administration, helical CT angiography of the neck was performed. Source data was reformatted into multiple 2D MIP projections. Delayed post contrast acquisition was also obtained. INDICATION: Left arm and leg numbness. Dizziness. Fall. COMPARISON: CT cervical spine without contrast 03/10/2018. FINDINGS: Noncontrast head CT demonstrates moderate generalized cerebral and cerebellar parenchymal volume loss. 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 No CT evidence of an acute infarct. No intracranial hemorrhage, mass effect, hydrocephalus or extra-axial fluid collections. No abnormal intracranial enhancement on delayed postcontrast imaging. The calvarium and skull base are intact. The paranasal sinuses and mastoids are clear. CTA demonstrates conventional aortic arch. The basilar, bilateral carotid, vertebral, anterior cerebral, middle cerebral and posterior cerebral arteries are widely patent without evidence of aneurysm or dissection. The dural venous sinuses are patent. Advanced spondylotic changes in the cervical spine are greatest at C4-C7. No acute osseous findings. No evidence of high-grade spinal canal narrowing on this non-intrathecal contrast exam. The visualized paravertebral soft tissues are unremarkable. The lung apices are clear. IMPRESSION: 1. No acute intracranial CT findings. 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 2. No high-grade arterial narrowing, aneurysm or dissection involving the major arteries in the head and neck. Dictated by: Dictated on workstation # [id number] Dict: 03/10/18 1212 Trans: 03/10/181724 Interpreted by: MARLYS JUDGE MD Electronically signed by: MARLYS JUDGE MD 03/10/181724 Diagonstic Imaging: CT Plain Films/CT/US/NM/MRI: c-spine Comments CT cervical spine viewed by me and report reviewed. See report below: NAME: MANOLO SANCHEZ [facility] REC#: [id number] PT STATUS: ADM IN : 1955 PHYSICIAN: TIM HALEY MD ADMIT DATE: 03/10/18/ICU Signed Date of Exam: 03/10/18 CT CERVICAL SPINE WO PROCEDURE: CT cervical spine without contrast. TECHNIQUE: Multiple contiguous axial images were obtained through the cervical spine without the use of intravenous contrast. Sagittal and coronal reformations were then performed. INDICATION: Trauma. Fall. COMPARISON: CTA head and neck also performed today. FINDINGS: Minimal anterolisthesis of C3 on C4 and retrolisthesis of C5 on C6. Alignment is otherwise unremarkable. Vertebral body heights are preserved. No fractures. Advanced degenerative endplate changes are greatest at C4-C7. No evidence of high-grade spinal canal narrowing on this non-intrathecal contrast exam. The visualized paravertebral soft tissues are unremarkable. The lung apices are clear. IMPRESSION: 1. Advanced spondylotic changes in the cervical spine are greatest at C4-C7. 2. No acute CT findings. Dictated by: Dictated on workstation # [id number] Dict: 03/10/18 1222 Trans: 03/10/181724 Interpreted by: MARLYS JUDGE MD Electronically signed by: MARLYS JUDGE MD 03/10/181724 Diagonstic Imaging: Xray Plain Films/CT/US/NM/MRI: chest Comments Chest x-ray viewed by me and report reviewed. See report below: NAME: MANOLO SANCHEZ [facility] REC#: [id number] PT STATUS: ADM IN : 1955 PHYSICIAN: TIM HALEY MD ADMIT DATE: 03/10/18/ICU Signed Date of Exam: 03/10/18 CHEST 1 VIEW, AP/PA ONLY INDICATION: Syncopal episode. TIME OF EXAM: 12:19 PM Correlation is made with prior study from 12/11/2015. FINDINGS: The heart size is stable. Lungs appear to be clear. No infiltrates are seen. No effusion or pneumothorax is detected. IMPRESSION: No acute abnormality is detected. Dictated by: Dictated on workstation # [id number] Dict: 03/10/18 1246 Trans: 03/10/181815 Interpreted by: TEOFILO ALICEA MD Electronically signed by: TEOFILO ALICEA MD 03/10/181815 Departure Communication (Admissions) Time/Spoke to Admitting Phy: 15:05 Dr. Dennison Impression Primary Impression: CVA (cerebral vascular accident) Qualified Codes: I63.9 - Cerebral infarction, unspecified Additional Impressions: Left leg weakness Laceration of scalp Qualified Codes: S01.01XA - Laceration without foreign body of scalp, initial encounter Fall on same level Qualified Codes: W18.30XA - Fall on same level, unspecified, initial encounter Alcohol dependence Qualified Codes: F10.29 - Alcohol dependence with unspecified alcohol-induced disorder Disposition: ADMITTED INPATIENT Condition: Improved Admissions Decision to Admit Reason: Admit from ER (General) Decision to Admit/Date: Mar 10, 2018 Time/Decision to Admit Time: 12:25 Departure-Patient Inst. Referrals: MELA GRLULON DO (PCP/Family) Primary Care Physician TIM HALEY MD Mar 10, 2018 15:29
[2018-03-10] MEDS ORDERED: D5 1/2 NS W/KCL 20 MEQ/L 1,000 ML IV SCH (20:21)
[2018-03-10] MEDS ORDERED: LORazepam INJ 2 MG/ML (ATIVAN) VIAL IM/IV PRN (20:30)
[2018-03-10] MEDS ORDERED: LORazepam INJ 2 MG/ML (ATIVAN) VIAL IV PRN (20:30)
[2018-03-10] MEDS ORDERED: ONDANSETRON 4 MG (ZOFRAN) ORAL DISSOLVE TAB SL PRN (20:30)
[2018-03-10] MEDS ORDERED: D5 1/2 NS 1000 ML IV SOLUTION 1,000 ML IV PRN (20:30)
[2018-03-10] MEDS ORDERED: MILK OF MAGNESIA 400 MG/5 ML 30 ML UDC PO PRN (20:30)
[2018-03-10] MEDS ORDERED: CATHETER FLUSH 10 ML SYR IV PRN (20:30)
[2018-03-10] MEDS ORDERED: SENNA W/DOCUSATE (SENOKOT S) TABLET PO PRN (20:30)
[2018-03-10] MEDS ORDERED: ONDANSETRON 4 MG/2 ML (SDV) Z0FRAN IV PRN (20:30)
[2018-03-10] MEDS ORDERED: ANTACID SUSP 30 ML UDC (MYLANTA) PO PRN (20:30)
[2018-03-10] MEDS ORDERED: LORazepam 1 MG (ATIVAN) TAB PO PRN (20:30)
[2018-03-10] MEDS ORDERED: BISACODYL 10 MG SUPP (DULCOLAX) PR PRN (21:00)
[2018-03-10] MEDS: ASPIRIN 81 MG CHEW (CHILDREN'S ASA) PO SCH (23:12)
[2018-03-10] MEDS: PANTOPRAZOLE 40 MG (PROTONIX) TAB PO SCH (23:14)
[2018-03-10] MEDS: LOSARTAN 50 MG (COZAAR) TAB PO SCH (23:15)
[2018-03-10] MEDS: FOLIC ACID 1 MG TAB PO SCH (23:34)
[2018-03-10] MEDS: MULTIVIT W/MINERALS TAB (THERAGRAN M) PO SCH (23:37)
[2018-03-10] MEDS: THIAMINE 100 MG (VITAMIN B-1) TAB PO SCH (23:37)
[2018-03-10] MEDS: ATORVASTATIN 80 MG (LIPITOR) TABLET PO SCH (23:37)
[2018-03-10] MEDS: MAGNESIUM OXIDE (MAG-OX)400 MG TAB PO SCH (23:38)
[2018-03-10] MEDS: CATHETER FLUSH 10 ML SYR IV SCH (23:46)
[2018-03-11] VITALS (20 sets, daily range): BP systolic 94–178; BP diastolic 66–114
[2018-03-11 04:19] LABS: BASOPHILS % (AUTO) 0 % (0-10); EOSINOPHILS # (AUTO) 0.1 10^3/uL (0.0-0.3); EOSINOPHILS % (AUTO) 1 % (0-10); HEMATOCRIT 31 % (40-54); HEMOGLOBIN 9.8 G/DL (13.3-17.7); LYMPHOCYTES # (AUTO) 0.9 X 10^3 (1.0-4.0); LYMPHOCYTES % (AUTO) 23 % (12-44); MEAN CORPUSCULAR HEMOGLOBIN 23 PG (25-34); MEAN CORPUSCULAR HGB CONC 32 G/DL (32-36); MEAN CORPUSCULAR VOLUME 74 FL (80-99); MEAN PLATELET VOLUME 8.7 FL (7.4-10.4); MONOCYTES # (AUTO) 0.4 X 10^3 (0.0-1.0); MONOCYTES % (AUTO) 11 % (0-12); NEUTROPHILS # (AUTO) 2.6 X 10^3 (1.8-7.8); NEUTROPHILS % (AUTO) 65 % (42-75); PLATELET COUNT 251 10^3/uL (130-400); RED BLOOD COUNT 4.19 10^6/uL (4.35-5.85); RED CELL DISTRIBUTION WIDTH 20.7 % (10.0-14.5); WHITE BLOOD COUNT 3.9 10^3/uL (4.3-11.0)
[2018-03-11 04:40] LABS: BUN/CREATININE RATIO 9; CALCIUM 9.3 MG/DL (8.5-10.1); CARBON DIOXIDE 20 MMOL/L (21-32); CHLORIDE 106 MMOL/L (98-107); CHOLESTEROL 147 MG/DL (< 200); CREATININE SERUM 1.07 MG/DL (0.60-1.30); GFR ESTIMATED > 60; GLUCOSE 89 MG/DL (70-105); HDL CHOLESTEROL 38 MG/DL (40-60); MAGNESIUM 2.1 MG/DL (1.8-2.4); PHOSPHORUS 3.3 MG/DL (2.3-4.7); POTASSIUM 3.8 MMOL/L (3.6-5.0); SODIUM 139 MMOL/L (135-145); TRIGLYCERIDES 142 MG/DL (<150); VLDL CHOLESTEROL 28 MG/DL (5-40)
--- NOTE | 2018-03-11 05:38 | Pulmonary Consultation ---
History of Present Illness History of Present Illness Date of Consultation 03/11/18 05:33 Time Seen by Provider: 05:33 Date of Admission History of Present Illness 62yo with hx of rectal cancer, CVA, and DVT presented to ED after collapsing and hitting the back of his head. No loss of consciousness. PT's became had acute onset weakness in left leg, and left arm. Since admission left arm weakness has improved. CT scan showed chronic changes. PT is on Xarelto chronically and did not receive TPA. neurology was consulted. Pt did pass swallow study. T Allergies and Home Medications Allergies Coded Allergies: lisinopril (Verified Allergy, Severe, LIPS SWELLING, 12/26/16) Nitrate (Verified Allergy, Intermediate, HIVES, 12/26/16) amlodipine besylate (Verified Adverse Reaction, Unknown, LOW BP, 12/26/16) Uncoded Allergies: MARIANNA (Adverse Reaction, Intermediate, COLD, 01/30/12) Home Medications Aspirin 325 Mg Tablet.dr, 325 MG PO DAILY, (Reported) Aspirin 81 Mg Tablet.dr, 81 MG PO DAILY, (Reported) Calcium Carbonate 300 Mg Tab.chew, 300 MG PO TID PRN for INDIGESTION, (Reported) Hydroxyzine HCl 25 Mg Tablet, 25 MG PO DAILY PRN for ITCHING, (Reported) Levothyroxine Sodium 25 Mcg Tablet, 25 MCG PO DAILY, (Reported) Losartan Potassium 50 Mg Tablet, 50 MG PO DAILY, (Reported) Pantoprazole Sodium 40 Mg Tablet.dr, 40 MG PO DAILY, (Reported) Rivaroxaban 20 Mg Tablet, 20 MG PO DAILY, (Reported) Past Gdkjysl-Aciuaz-Nosswt Hx Patient Social History Alcohol Use: Regular Use Number of Drinks Today: 5 Alcohol Beverage of Choice: Beer Recreational Drug Use: No Smoking Status: Former Smoker Type Used: Cigars Former Smoker, Quit: Mar 10, 1976 Recent Foreign Travel: No Contact w/Someone Who Travel: No Recent Infectious Disease Expo: No Recent Hopitalizations: No Physical Abuse: No Sexual Abuse: No Mistreated: No Fear: No Immunizations Up To Date Tetanus Booster (TDap): More than 5yrs PED Vaccines UTD: Yes Seasonal Allergies Seasonal Allergies: No Past Medical History Surgeries: Yes (Port placement and removal) Respiratory: No Cardiac: Yes Deep Vein Thrombosis, High Cholesterol, Hypertension Neurological: Yes Stroke (Involving retinal artery) Reproductive Disorders: No Sexually Transmitted Disease: No HIV/AIDS: No Genitourinary: No Gastrointestinal: Yes Gastroesophageal Reflux, Hemorrhoids, Hiatal Hernia Musculoskeletal: No Osteoporosis Endocrine: Yes Hypothyroidsim HEENT: Yes Double Vision Loss of Vision: Bilateral Hearing Impairment: Denies Cancer: No Skin Did You Recieve Any Treatments: Yes What Type of Treatment Did You: Chemotherapy, Radiation Had small squamous Psychosocial: Yes (Alcohol dependence) Integumentary: No (Oral herpes/fever blisters) Herpes Blood Disorders: Yes (iron defeciency ) Adverse Reaction/Blood Tranf: No (never received ) Family Medical History Cardiovascular disease Hypercholesterolemia Hypertension Myocardial infarction Osteoporosis No Family History of: AIDS Abdominal aortic aneurysm [place]'s disease Alcoholism Alzheimer's disease Aphasia Arthritis Asthma Cancer of mouth Cataracts Colon cancer Completed stroke Congenital disease Congenital heart disease Coronary thrombosis Cystic fibrosis Deafness or hearing loss Dementia Diabetes mellitus Drug abuse Dysphasia Fibrocystic disease of breast Gastroenteritis Glaucoma Headache disorder Infertility Kidney disease Neoplasm Not obtainable due to adoption Parkinson's disease Prostate cancer Psychosocial problem Respiratory disorder Seizure disorder Severe allergy Thyroid disease Tuberculosis Visual disorder Review of Systems Time Seen by Provider: 13:16 Sepsis Event Evaluation Height, Weight, BMI Height: 5'8.00" Weight: 173lbs. 1.0oz. 78.901036ik; 26.3 BMI Method:Stated Exam Exam Vital Signs Date Time Temp Pulse Resp B/P (MAP) Pulse Ox O2 Delivery O2 Flow Rate FiO2 03/11/18 04:00 95 Room Air 03/11/18 04:00 97.2 03/11/18 03:00 65 20 94/76 (82) 97 Room Air 03/11/18 02:00 65 11 126/76 (93) 98 Room Air 03/11/18 01:00 67 03/11/18 01:00 67 25 116/72 (87) 98 Room Air 03/11/18 00:15 56 10 125/75 (92) 95 Room Air 03/11/18 00:00 95 Room Air 03/11/18 00:00 97.0 03/11/18 00:00 60 10 106/66 (79) 96 Room Air 03/10/18 23:45 58 14 123/62 (82) 97 Room Air 03/10/18 23:30 59 15 114/76 (89) 96 Room Air 03/10/18 23:15 58 15 104/75 (85) 98 Room Air 03/10/18 23:00 74 17 106/67 (80) 97 Room Air 03/10/18 22:45 60 20 118/87 (97) 97 Room Air 03/10/18 22:30 57 16 120/91 (101) 97 Room Air 03/10/18 22:15 51 16 120/75 (90) 97 Room Air 03/10/18 22:00 50 13 110/77 (88) 96 Room Air 03/10/18 21:45 64 13 147/82 (103) 98 Room Air 03/10/18 21:43 Room Air 03/10/18 21:30 65 14 130/91 (104) 99 Room Air 03/10/18 21:15 61 14 131/92 (105) 97 Room Air 03/10/18 21:00 67 16 143/92 (109) 96 Room Air 03/10/18 20:45 65 15 122/85 (97) 99 Room Air 03/10/18 20:30 68 20 131/98 (109) 99 Room Air 03/10/18 20:15 70 17 137/89 (105) 98 Room Air 03/10/18 20:00 60 16 137/89 (105) 97 Room Air 03/10/18 19:47 69 20 136/101 (113) 98 03/10/18 19:45 76 03/10/18 19:40 96 Room Air 03/10/18 19:35 97.8 76 16 155/98 (117) 96 Room Air 03/10/18 11:15 98.2 128 16 151/105 (120) 98 Room Air I & O 03/11/18 07:00 Output Total 500 ml Balance -500 ml Height & Weight Height: 5'8.00" Weight: 173lbs. 1.0oz. 78.261543ay; 26.3 BMI Method:Stated General Appearance: No Apparent Distress, WD/WN HEENT: PERRL/EOMI, Normal ENT Inspection Neck: Full Range of Motion, Non Tender, Supple Respiratory: Chest Non Tender, Lungs Clear, Normal Breath Sounds, No Accessory Muscle Use, No Respiratory Distress Cardiovascular: Regular Rate, Rhythm, No Edema Capillary Refill: Less Than 3 Seconds Gastrointestinal: normal bowel sounds, non tender, soft Results Lab Laboratory Tests 03/10/18 11:24 03/11/18 03:35 Assessment/Plan Assessment/Plan Acute CVA with left sided upper and lower weakness -Did not receive TPA -Continue ASA -NIH 2 on admission and currently 1 -MRI scheduled for this morning HX of DVT -Continue Xeralto S/p fall laceration with scalp HX of alcohol dependence -EUGENIO protocol -Monitor BOB BURNS DO Mar 11, 2018 05:38
[2018-03-11] MEDS: FOLIC ACID 1 MG TAB PO SCH (06:11)
[2018-03-11] MEDS: MAGNESIUM OXIDE (MAG-OX)400 MG TAB PO SCH ×2 (06:12→15:52)
[2018-03-11] MEDS: THIAMINE 100 MG (VITAMIN B-1) TAB PO SCH (06:12)
[2018-03-11] MEDS: MULTIVIT W/MINERALS TAB (THERAGRAN M) PO SCH (06:12)
[2018-03-11] MEDS: PANTOPRAZOLE 40 MG (PROTONIX) TAB PO SCH ×2 (06:12→15:52)
[2018-03-11] MEDS: CATHETER FLUSH 10 ML SYR IV SCH ×3 (06:56→20:16)
[2018-03-11] MEDS ORDERED: FLU QUADRIvalent (5+ YOA) 2018-2019 (AFLURIA) 0.5 ML IM ONE ×2 (07:15→16:09)
--- NOTE | 2018-03-11 08:01 | Diagnostic Imaging Report ---
INDICATION: Left leg weakness, stroke, head laceration. Post fall.. TECHNIQUE: Single view chest 3:25 AM. CORRELATION STUDY: 03/10/2018 FINDINGS: Heart size and mediastinum are stable. Unchanged elevation of the right diaphragm. Lung alonzo appear stable. IMPRESSION: 1. Generally stable portable chest. Dictated by: Dictated on workstation # [id number]
--- NOTE | 2018-03-11 08:51 | History & Physical-Hospitalist ---
JOAN GRULLON DO 03/11/18 0851: History of Present Illness HPI/Chief Complaint CC: Left sided weakness HPI: This is a 62yoWM clinic patient of mine for the past 13 years w/h/o HTN, rectal CA SCC managed by Dr Dann PE dx during cancer treatment and maintained on Xarelto rn long term care and prior CVA in 2016 during a heat exposure event at work with residual peripheral vision loss who presented to the ER 1 day after I saw him in clinic for right facial skin lesion evaluation and ordered EST and ECHO for CAD risk stratification for left sided weakness. He fell once his left leg gave out and he fell and hit his head. Stroke protocol was initiated and was deemed not a tPA candidate and was subsequently placed in ICU for monitoring and Cardiology and Hematology have been consulted due to MRI confirmed recurrent stroke in a different area compared to 2016 event. Source: patient, RN/MD Exam Limitations: no limitations Date Seen 03/11/18 Time Seen by a Provider: 10:00 Attending Physician Joan Grullon DO PCP Joan Grullon DO Referring Physician Date of Admission Mar 10, 2018 at 15:46 Home Medications & Allergies Home Medications Reviewed patient Home Medication Reconciliation performed by pharmacy medication reconciliations special effects technician and/or nursing. Patients Allergies have been reviewed. Allergies Allergies Coded Allergies lisinopril (Verified Allergy, Severe, LIPS SWELLING, 12/26/16) Nitrate (Verified Allergy, Intermediate, HIVES, 12/26/16) amlodipine besylate (Verified Adverse Reaction, Unknown, LOW BP, 12/26/16) Uncoded Allergies MARIANNA ( Adverse Reaction, Intermediate, COLD, 01/30/12) Past Rdsoetw-Zcitzs-Wldvkr Hx Past Med/Social Hx: Reviewed Nursing Past Med/Soc Hx, Reviewed and Corrections made Patient Social History Marrital Status: single Employed/Student: retired Alcohol Use: Regular Use Number of Drinks Today: 5 Alcohol Beverage of Choice: Beer Recreational Drug Use: No Smoking Status: Former Smoker Former Smoker, Quit: Mar 10, 1976 Type Used: Cigars Physical Abuse Screen: No Sexual Abuse: No Recent Foreign Travel: No Contact w/other who traveled: No Recent Hopitalizations: No Recent Infectious Disease Expo: No Immunizations Up To Date Tetanus Booster (TDap): More than 5yrs Pediatric: Yes Seasonal Allergies Seasonal Allergies: No Past Medical History Cardiac: Deep Vein Thrombosis, High Cholesterol, Hypertension Neurological: Stroke (Involving retinal artery) Reproductive: No Sexually Transmitted Disease: No HIV/AIDS: No Gastrointestinal: Gastroesophageal Reflux, Hemorrhoids, Hiatal Hernia Musculoskeletal: Osteoporosis Endocrine: Hypothyroidsim HEENT: Double Vision Loss of Vision: Bilateral Hearing Impairment: Denies Cancer: Skin Did You Recieve Any Treatments: Yes What Type of Treatment Did You: Chemotherapy, Radiation Cancer: Had small squamous Skin/Integumentary: Herpes History of Blood Disorders: Yes (iron defeciency ) Adverse Reaction to Blood New: No (never received ) Family History Cardiovascular disease Hypercholesterolemia Hypertension Myocardial infarction Osteoporosis No Family History of: AIDS Abdominal aortic aneurysm [place]'s disease Alcoholism Alzheimer's disease Aphasia Arthritis Asthma Cancer of mouth Cataracts Colon cancer Completed stroke Congenital disease Congenital heart disease Coronary thrombosis Cystic fibrosis Deafness or hearing loss Dementia Diabetes mellitus Drug abuse Dysphasia Fibrocystic disease of breast Gastroenteritis Glaucoma Headache disorder Infertility Kidney disease Neoplasm Not obtainable due to adoption Parkinson's disease Prostate cancer Psychosocial problem Respiratory disorder Seizure disorder Severe allergy Thyroid disease Tuberculosis Visual disorder Review of Systems Constitutional: see HPI, weakness EENTM: no symptoms reported Respiratory: no symptoms reported Cardiovascular: no symptoms reported Gastrointestinal: no symptoms reported Genitourinary: no symptoms reported Musculoskeletal: muscle weakness Skin: no symptoms reported Psychiatric/Neurological: Numbness, Paresthesia, Pre-Existing Deficit, Weakness Physical Exam Physical Exam Vital Signs Vital Signs - First Documented 03/10/18 11:15 Temp 98.2 Pulse 128 Resp 16 B/P (MAP) 151/105 (120) Pulse Ox 98 O2 Delivery Room Air Capillary Refill : Less Than 3 SecondsLess Than 3 Seconds Height, Weight, BMI Height: 5'8.00" Weight: 170lbs. 1.0oz. [id number]; 26.3 BMI Method:Stated General Appearance: No Apparent Distress, WD/WN Eyes: Bilateral Eye Normal Inspection, Bilateral Eye PERRL HEENT: PERRL/EOMI, TMs Normal, Normal ENT Inspection, Pharynx Normal Neck: Full Range of Motion, Normal Inspection, Non Tender, Supple, Carotid Bruit Respiratory: Chest Non Tender, Lungs Clear, Normal Breath Sounds, No Accessory Muscle Use, No Respiratory Distress Cardiovascular: Regular Rate, Rhythm, No Edema, No Gallop, No JVD, No Murmur, Normal Peripheral Pulses Gastrointestinal: Normal Bowel Sounds, No Organomegaly, No Pulsatile Mass, Non Tender, Soft Back: Normal Inspection, No CVA Tenderness, No Vertebral Tenderness Extremity: Normal Capillary Refill, Normal Inspection, Normal Range of Motion, Non Tender, No Calf Tenderness, No Pedal Edema Neurologic/Psychiatric: Alert, Oriented x3, Normal Mood/Affect, Motor Weakness (Left foot weak. Most pronounced weakness is to dorsiflexion and eversion. Weakness to left leg extension. ) Skin: Normal Color, Warm/Dry Lymphatic: No Adenopathy Results Results/Procedures Labs Laboratory Tests 03/10/18 11:24 03/11/18 03:35 Patient resulted labs reviewed. Assessment/Plan Admission Diagnosis Assessment: Acute CVA w/left sided weakness now improved with only left foot and lower leg residual Prior CVA 2015 with peripheral vision loss residual HTN HLP PE hx maintained on Xarelto long-term Varicose vein procedure 08/10 placed on 325mg ASA daily SCC Anal cancer managed by Dr Quigley Plan: Xarelto ASA 325mg Cardiology and Hematology consultations are appreciated Statin initiated Admission Status: Inpatient Order (span 2 midnights) Reason for Inpatient Admission: Recurrent CVA in need of aggressive w/u to prevent recurrences and disability will take 3 days of inpt Diagnosis/Problems Diagnosis/Problems (1) CVA (cerebral vascular accident) Status: Acute Qualifiers: CVA mechanism: unspecified Qualified Codes: I63.9 - Cerebral infarction, unspecified (2) Lower extremity weakness Status: Acute Qualifiers: Laterality: left Qualified Codes: R29.898 - Other symptoms and signs involving the musculoskeletal system (3) Fall on same level Status: Acute Qualifiers: Encounter type: initial encounter Qualified Codes: W18.30XA - Fall on same level, unspecified, initial encounter (4) Laceration of scalp Status: Acute Qualifiers: Encounter type: initial encounter Qualified Codes: S01.01XA - Laceration without foreign body of scalp, initial encounter (5) GERD (gastroesophageal reflux disease) (6) Anal cancer (7) Hypertension (8) Hx pulmonary embolism Status: Chronic (9) Anticoagulant long-term use Status: Chronic (10) Aspirin long-term use Status: Chronic (11) Varicose veins of both lower extremities Status: Chronic Qualifiers: Varicose vein complication: unspecified Qualified Codes: I83.93 - Asymptomatic varicose veins of bilateral lower extremities (12) Hemianopia of left eye Status: Chronic (13) Alcohol dependence Status: Acute Qualifiers: Substance use status: unspecified alcohol-induced disorder Qualified Codes : F10.29 - Alcohol dependence with unspecified alcohol-induced disorder Clinical Quality Measures DVT/VTE Risk/Contraindication: Risk Factor Score Per Nursin RFS Level Per Nursing on Admit: 2=Moderate Stroke: Date of last known well: Mar 10, 2018 TRI MENDOZA MEDICAL STUDENT 03/11/18 1601: History of Present Illness HPI/Chief Complaint Pt is 62 yo WM with a hx of prior stroke & DVT who presented to the ED following sudden weakness, fall and subsequent head injury. 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 States he did not feel lightheaded or significantly dizzy at the time. Often does feel dizzy when he stands up from doing work. Sensation reminded him of experience during prior stroke. Residual from prior stroke is a peripheral vision deficit. He takes ASA and Xarelto for anticoagulation, and states he did not miss a dose. Upon presentation to the ED had noted RUE and RLE weakness. CTA negative, [facility] neurology consulted, pt deemed not a TPA candidate secondary to head injury, admission recommended with follow up MRI. The following morning MRI demonstrated right hemispheric non-hemorrhagic infarct in the territory of the PREM. Deficits in RUE resolved rapidly however weakness in RLE continues to persist. Source: patient Exam Limitations: no limitations Time Seen by a Provider: 09:30 Past Lgwxydg-Tgxewl-Nidqjp Hx Patient Social History Alcohol Use: Regular Use Alcohol Beverage of Choice: Beer Recreational Drug Use: No Immunizations Up To Date Tetanus Booster (TDap): More than 5yrs Pediatric: Yes Seasonal Allergies Seasonal Allergies: No Past Medical History Cardiac: Deep Vein Thrombosis, High Cholesterol, Hypertension Neurological: Stroke (Involving retinal artery) Reproductive: No Sexually Transmitted Disease: No HIV/AIDS: No Gastrointestinal: Gastroesophageal Reflux, Hemorrhoids, Hiatal Hernia Musculoskeletal: Osteoporosis Endocrine: Hypothyroidsim Loss of Vision: Bilateral (Residual from prior stroke) Hearing Impairment: Denies Cancer: Skin (Squamous cell) What Type of Treatment Did You: Chemotherapy, Radiation Skin/Integumentary: Herpes History of Blood Disorders: Yes (iron defeciency ) Adverse Reaction to Blood New: No (never received ) Family History Reviewed Nursing Family Hx Cardiovascular disease Hypercholesterolemia Hypertension Myocardial infarction Osteoporosis No Family History of: AIDS Abdominal aortic aneurysm Howard's disease Alcoholism Alzheimer's disease Aphasia Arthritis Asthma Cancer of mouth Cataracts Colon cancer Completed stroke Congenital disease Congenital heart disease Coronary thrombosis Cystic fibrosis Deafness or hearing loss Dementia Diabetes mellitus Drug abuse Dysphasia Fibrocystic disease of breast Gastroenteritis Glaucoma Headache disorder Infertility Kidney disease Neoplasm Not obtainable due to adoption Parkinson's disease Prostate cancer Psychosocial problem Respiratory disorder Seizure disorder Severe allergy Thyroid disease Tuberculosis Visual disorder Review of Systems EENTM: No double vision Respiratory: No cough, No short of breath Cardiovascular: No chest pain, No edema Gastrointestinal: No abdominal pain Physical Exam Physical Exam General Appearance: No Apparent Distress, WD/WN HEENT: PERRL/EOMI, TMs Normal, Normal ENT Inspection, Pharynx Normal Respiratory: Chest Non Tender, Lungs Clear, Normal Breath Sounds, No Accessory Muscle Use, No Respiratory Distress Cardiovascular: Regular Rate, Rhythm, No Edema, No Gallop, No JVD, No Murmur, Normal Peripheral Pulses Gastrointestinal: Non Tender, Soft Extremity: Normal Capillary Refill, Normal Inspection, Normal Range of Motion, No Calf Tenderness Neurologic/Psychiatric: Alert, Oriented x3, maintenance helper II-XII Norm as Tested, Motor Weakness (Left foot weak. Most pronounced weakness is to dorsiflexion and eversion. Weakness to left leg extension. ); No Sensory Deficit Skin: Normal Color, Warm/Dry Assessment/Plan Admission Diagnosis Admission Status: Inpatient Order (span 2 midnights) Diagnosis/Problems Diagnosis/Problems (1) CVA (cerebral vascular accident) Status: Acute Assessment & Plan: Did not receive TPA MRI confirms right hemispheric stroke Continue on ASA and Xarelto Consider additional workup for coagulopathy Qualifiers: CVA mechanism: unspecified Qualified Codes: I63.9 - Cerebral infarction, unspecified (2) Lower extremity weakness Status: Acute Assessment & Plan: PT/OT eval Will be admitted to rehab in future Qualifiers: Laterality: left Qualified Codes: R29.898 - Other symptoms and signs involving the musculoskeletal system (3) Fall on same level Status: Acute Qualifiers: Encounter type: initial encounter Qualified Codes: W18.30XA - Fall on same level, unspecified, initial encounter (4) Laceration of scalp Status: Acute Assessment & Plan: Simple. Treated in ED. Qualifiers: Encounter type: initial encounter Qualified Codes: S01.01XA - Laceration without foreign body of scalp, initial encounter (5) Alcohol dependence Status: Acute Assessment & Plan: Unclear severity Not present on tox screen CIWA scoring if symptomatic Qualifiers: Substance use status: unspecified alcohol-induced disorder Qualified Codes : F10.29 - Alcohol dependence with unspecified alcohol-induced disorder JOAN GRULLON DO Mar 11, 2018 08:51 TRI MENDOZA MEDICAL STUDENT Mar 11, 2018 16:01
[2018-03-11] MEDS ORDERED: RIVAROXABAN 10 MG TABLET (XARELTO) PO SCH (09:00)
--- NOTE | 2018-03-11 09:25 | Diagnostic Imaging Report ---
PROCEDURE: MR imaging of the brain without contrast. TECHNIQUE: Multiplanar/multisequence MR imaging of the brain was performed without contrast. INDICATION: Sudden onset of left leg weakness. COMPARISON: 01/22/2016. FINDINGS: The diffusion-weighted images demonstrate diffusion restriction in the high right parafalcine location in an area measuring 23 mm x 11 mm. There are smaller foci of diffusion restriction slightly more cephalad and more posterior in the right parafalcine location, consistent with microinfarcts. No acute hemorrhage is seen. No mass effect or midline shift is detected. Normal expected flow-voids within the carotid siphons are seen. The corpus callosum is unremarkable. The sella and parasellar structures are unremarkable. IMPRESSION: Acute nonhemorrhagic infarct in the high right parafalcine location, anterior cerebral artery territory. No other significant abnormality is identified. The results were called and discussed with Dr. Holbrook prior to this dictation. Dictated by: Dictated on workstation # [id number]
[2018-03-11] MEDS: ASPIRIN 81 MG CHEW (CHILDREN'S ASA) PO SCH (10:17)
[2018-03-11] MEDS: RIVAROXABAN 20 MG TABLET (XARELTO) PO SCH (10:21)
[2018-03-11] MEDS: LOSARTAN 50 MG (COZAAR) TAB PO SCH (10:21)
[2018-03-11] MEDS ORDERED: ASPIRIN 325 MG (5 GR) TABLET PO SCH (10:30)
[2018-03-11] MEDS ORDERED: LOSA50TA7 PO (11:02)
[2018-03-11] MEDS ORDERED: ASPI325T32 PO (11:03)
[2018-03-11] MEDS ORDERED: ASPI-983 PO (11:03)
[2018-03-11] MEDS ORDERED: HYDR-700 PO (11:03)
[2018-03-11] MEDS ORDERED: RIVA20TA PO (11:03)
[2018-03-11] MEDS ORDERED: CALC300T4 PO (11:05)
--- NOTE | 2018-03-11 11:19 | Physical Therapy Evaluation ---
PT Evaluation-General Medical Diagnosis Admission Date Mar 10, 2018 at 15:46 Medical Diagnosis: acute CVA Onset Date: Mar 10, 2018 Therapy Diagnosis Therapy Diagnosis: impaired mobility Height/Weight Height (Feet): 5 Height (Inches): 8.00 Weight (Pounds): 170 Weight (Ounces): 1.0 Precautions Precautions/Isolations: Fall Prevention, Standard Precautions Weight Bear Status Right Lower Extremity: Right Full Weight Bearing Left Lower Extremity: Left Full Weight Bearing Referral Physician: Joan Holbrook Reason for Referral: Evaluation/Treatment Medical History Pertinent Medical History: Alcoholism, CVA, HTN Additional Medical History CVA 2 yrs ago, history of DVTs, rectal cancer, osteoporosis Current History 03/10/18 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 Admitted to ER. Stroke protocol initiated. Pt admitted to ICU. Reviewed History: Yes Social History Home: Single Level Prior/Core FIM Prior Level of Function Functional [place] Measure 0=Not Assessed/NA 4=Minimal Assistance 1=Total Assistance 5=Supervision or Setup 2=Maximal Assistance 6=Modified [place] 3=Moderate Assistance 7=Complete IndependenceIRFPAI Quality Coding Scale 6 Independent with activity with or without an assistive device 5 Patient requires set up or clean up by helper. Patient completes activity by themselves 4 Supervision or touching assist (CGA). [place] provide cues , steadying assist 3 The helper provides less than half the effort to complete the activity 2 The helper provides more than half the effort to complete the activity 1 Dependent. The helper does all the effort to complete an activity 7 Patient refused to complete or attempt activity 9 The patient did not perform the activity before the current illness or injury 88 Not attempted due to Medical conditions or safety concerns Bed Mobility: 7 Transfers (B,C,W/C) (FIM): 7 Gait: 7 Stairs: 7 PT Evaluation-Current Subjective Pt reports that his left upper body and trunk are feeling stronger. He continues to have weakness in the left leg, particularly the ankle and knee. Objective Patient Orientation: Normal For Age Problem Solving: Fair Attachments: IV ROM/Strength ROM Upper Extremities impaired active motion left UE ROM Lower Extremities full passive range left lower extremity Strength Lower Extremities right lower extremity 5/5, (L) LE: hip flex/ext 2/5, hip abd 2/5, knee flex/ext 0/5, ankle DF/PF 0/5 Sensory Vision: Functional Hearing: Functional Hand Dominance: Right Sensation Right Lower Extremit: Intact Sensation Left Lower Extremity: Impaired Sensation Lower Extremities senses deep pressure in the left lower leg and foot but discriminatory touch is diminished Transfers Functional [place] Measure 0=Not Assessed/NA 4=Minimal Assistance 1=Total Assistance 5=Supervision or Setup 2=Maximal Assistance 6=Modified [place] 3=Moderate Assistance 7=Complete [place] Transfers (B, C, W/C) (FIM): 4 Scootin Rollin Supine to/from Sit: 4 Sit to/from Stand: 4 Unsteady and impulsive with transfers and sit to stand. (L) LE lacks motor control sufficient to stabilize the knee placing patient at risk for falls Gait Mode of Locomotion: Both Anticipated Mode of Locomotion: Walk Gait (FIM): 1 Distance (FIM): 1=up to 49 ft Distance: 5 steps hand held assist Gait Level of Assist: 3 Gait Persons Needed: 1 Gait Assistive Device: Handheld Assist Comments/Gait Description Moderate assist to advance left LE and stabilize during stance Balance Sitting Static: Fair Sitting Dynamic: Fair Standing Static: Poor Standing Dynamic: Poor Assessment/Needs Pt has diminished functional mobility following acute CVA. He has left side weakness that presents in all LE muscle groups but distal greater than proximal. He is at risk for falls and currently does not have sufficient mobility to return to home. He will benefit from skilled therapy to advance function and promote return to home. Rehab Potential: Good Post Rehab Potential-Barriers: none Equipment Needs walker or cane PT Short Term Goals Short Term Goals Time Frame: Mar 18, 2018 Transfers (B,C,W/C) (FIM): 4 Gait (FIM): 3 Distance (FIM): 3=150 ft Gait Distance Comment: 150ft with FWW and Min Assist Gait Level of Assist: 4 Gait Assistive Device: FWW PT Halfway Goals Historical Site Guide Goals PT Halfway Goals Time Frame: Mar 25, 2018 Transfers (B,C,W/C) (FIM): 6 Gait (FIM): 6 Gait distance (FIM): 3=150 ft Gait Assistive Device: Cane Small Base Quad Stairs (FIM): 5 # of Steps: 12 PT Plan Problem List Problem List: Functional Strength, Balance, Gait, Transfer, Bed Mobility Treatment/Plan Treatment Plan: Continue Plan of Care Treatment Plan: Bed Mobility, Functional Strength, Gait, Safety, Therapeutic Exercise Treatment Duration: Mar 25, 2018 Frequency: 11 times per week Estimated Hrs Per Day: .25 hour per day Patient and/or Family Agrees t: Yes Safety Risks/Education Patient Education: Gait Training, Transfer Techniques Teaching Recipient: Patient Discharge Recommendations Therapy D/C Recommendations: Acute Rehab Target Placement acute rehab vs home with home health depending on progress Time/GCodes Time In: 935 Time Out: 1025 Total Billed Treatment Time: 50 Total Billed Treatment visit, eval high complexity 50 min LOTUS GARCIA PT Mar 11, 2018 11:19
[2018-03-11] MEDS ORDERED: NON-FORMULARY MEDICATION 1 EA EA (Hydroxyzine HCl 25 MG) PO PRN (11:30)
[2018-03-11] MEDS ORDERED: NON-FORMULARY MEDICATION 1 EA EA (Calcium Carbonate (Tums) 300 MG) PO PRN (11:30)
[2018-03-11] MEDS ORDERED: CALCIUM CARBONATE 500 MG (TUMS) TAB.CHEW PO PRN (12:00)
[2018-03-11] MEDS ORDERED: hydrOXYzine (VISTARIL) 25 MG CAP PO PRN (12:00)
--- NOTE | 2018-03-11 12:45 | Consultation-Cardiology ---
HPI-Cardiology Cardiology Consultation: Date of Consultation 03/11/18 Date of Admission Attending Physician Joan Holbrook DO Admitting Physician Joan Holbrook DO Consulting Physician Sonia OTERO MD HPI: Time Seen by a Provider: 12:45 Chief Complaint: Acute stroke This is a 62-year-old gentleman who presented to the ER via EMS after collapsing and falling into a wall. The patient denies syncope. The patient previously had an episode of CVA. This was diagnosed in 2013. He was also diagnosed with a DVT during the same hospitalization. He was started on Xarelto and continued on Xarelto since 2013. 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 He presented with sudden onset of weakness in his legs as the cause of his fall. Bilateral however worse in the left arm and leg. He continues to be on Xarelto. Patient does not have history of any cardiac pathology. He denies atrial fibrillation. The patient denies chest pain, shortness of breath, syncope, near -syncope, palpitation. Review of Systems-Cardiology Review of Systems Constitutional: As described under HPI; No As described under HPI, No no symptoms reported, No chills, No fever, No lightheadedness Eyes: No As described under HPI, No no symptoms reported, No blindness, No blurred vision, No contact lenses, No drainage, No decreased acuity, No foreign body sensation, No pain, No vision change Ears/Nose/Throat: No As described under HPI, No no symptoms reported, No chronic hearing loss, No ear discharge, No ear pain, No nasal drainage, No ulcerations Respiratory: No no symptoms reported; As described under HPI; No As described under HPI, No cough, No orthopnea, No shortness of breath, No SOB with excertion Cardiovascular: No no symptoms reported; As described under HPI; No As described under HPI, No chest pain, No edema, No irregular heart rate, No lightheadedness, No palpitations Gastrointestinal: No no symptoms reported, No As described under HPI, No abdomen distended, No abdominal pain, No blood streaked bowels, No constipation , No diarrhea, No nausea, No vomiting, No stool coloration changes Genitourinary: No As described under HPI, No burning, No dysuria, No discharge , No frequency, No flank pain, No hematuria, No urgency Skin: No rash, No skin related problems, No ulcerations Psychiatric/Neurological: As described under HPI; No anxiety, No depression, No seizure, No focal weakness, No syncope Hematologic: No bleeding abnormalities NUL-Lzuicu-Tsflap Hx Patient Social History Alcohol Use: Regular Use Recreational Drug Use: No Smoking Status: Former Smoker Type Used: Cigars Recent Foreign Travel: No Recent Infectious Disease Expo: No Hospitalization with Isolation: Droplet Physical Abuse Screen: No Sexual Abuse: No Immunizations Up To Date Tetanus Booster (TDap): More than 5yrs Past Medical History PMH As described under Assessment. Family Medical History Family History: Cardiovascular disease Hypercholesterolemia Hypertension Myocardial infarction Osteoporosis No Family History of: AIDS Abdominal aortic aneurysm Howard's disease Alcoholism Alzheimer's disease Aphasia Arthritis Asthma Cancer of mouth Cataracts Colon cancer Completed stroke Congenital disease Congenital heart disease Coronary thrombosis Cystic fibrosis Deafness or hearing loss Dementia Diabetes mellitus Drug abuse Dysphasia Fibrocystic disease of breast Gastroenteritis Glaucoma Headache disorder Infertility Kidney disease Neoplasm Not obtainable due to adoption Parkinson's disease Prostate cancer Psychosocial problem Respiratory disorder Seizure disorder Severe allergy Thyroid disease Tuberculosis Visual disorder Allergies and Home Medications Allergies Coded Allergies: lisinopril (Verified Allergy, Severe, LIPS SWELLING, 12/26/16) Nitrate (Verified Allergy, Intermediate, HIVES, 12/26/16) amlodipine besylate (Verified Adverse Reaction, Unknown, LOW BP, 12/26/16) Uncoded Allergies: MARIANNA (Adverse Reaction, Intermediate, COLD, 01/30/12) Home Medications Aspirin 81 Mg Tablet.dr, 81 MG PO DAILY, (Reported) Aspirin 325 Mg Tablet.dr, 325 MG PO DAILY, (Reported) Calcium Carbonate 300 Mg Tab.chew, 300 MG PO TID PRN for INDIGESTION, (Reported) Hydroxyzine HCl 25 Mg Tablet, 25 MG PO DAILY PRN for ITCHING, (Reported) Levothyroxine Sodium 25 Mcg Tablet, 25 MCG PO DAILY, (Reported) Losartan Potassium 50 Mg Tablet, 50 MG PO DAILY, (Reported) Pantoprazole Sodium 40 Mg Tablet.dr, 40 MG PO DAILY, (Reported) Rivaroxaban 20 Mg Tablet, 20 MG PO DAILY, (Reported) Patient Home Medication List Home Medication List Reviewed: Yes Physical Exam-Cardiology Physical Exam Vital Signs/I&O 03/11/18 03/11/18 03/11/18 03/11/18 05:00 06:00 07:00 07:00 Pulse 68 76 122 122 Resp 12 20 14 B/P (MAP) 115/76 (89) 121/84 (96) 125/88 (100) Pulse Ox 98 98 96 O2 Delivery Room Air Room Air Room Air 03/11/18 03/11/18 03/11/18 03/11/18 07:30 08:00 08:00 09:00 Temp 98.7 Pulse 98 101 Resp 15 27 B/P (MAP) 132/81 (98) 143/101 (115) Pulse Ox 96 98 O2 Delivery Room Air Room Air Room Air 03/11/18 03/11/18 03/11/18 03/11/18 09:15 10:00 11:00 11:15 Pulse 93 86 84 82 Resp 13 22 11 13 B/P (MAP) 127/84 (98) 120/86 (97) 170/114 (132) 178/104 (128) Pulse Ox 97 98 O2 Delivery Room Air Room Air Room Air Room Air 03/11/18 03/11/18 03/11/18 03/11/18 11:30 11:45 12:00 12:00 Pulse 87 80 70 Resp 9 10 14 B/P (MAP) 165/111 (129) 165/104 (124) 159/95 (116) Pulse Ox 97 98 97 98 O2 Delivery Room Air Room Air Room Air Room Air 03/11/18 03/11/18 13:00 14:00 Pulse 75 74 Resp 16 8 B/P (MAP) Pulse Ox 97 99 O2 Delivery Room Air Room Air 03/11/18 00:00 Output Total 500 ml Balance -500 ml Capillary Refill : Less Than 3 SecondsLess Than 3 Seconds Constitutional: appears stated age, AAO x 3; No apparent distress; well- developed, well-nourished HEENT: PERRL; No normal ENT inspection, No TMs normal, No pharynx normal, No scleral icterus (R), No scleral icterus (L), No pale conjunctivae (R), No pale conjunctivae (L), No photophobia, No TM abnormal (R), No TM abnormal (L), No pharyngeal erythema, No tonsillar exudate, No other, No discharge, No EOMI; hearing is well preserved; No hard of hearing; oral hygience is good; No ulceration, No xanthelasmas are seen Neck: No non-tender, No full range of motion, No supple, No normal inspection, No carotid bruit, No limited range of motion, No lymphadenopathy (R), No lymphadenopathy (L), No tender lateral, No tender midline, No thyromegaly, No other; carotid pulses are 2 + bilaterally; No with good upstrokes Respiratory: No accessory muscle use, No respiratory distress, No chest tender , No chest expansion is symmetric; chest is bilaterally symmetric; No lungs clear to percussion; lungs clear to auscultation; No crackles, No rhonchi, No rales, No stridor, No wheezing, No pleural rub, No other Cardiovascular: regular rate-rhythm; No irregularly irregular, No extra beats, No parasternal heave is noted, No JVD, No edema, No bradycardia, No tachycardia , No point of maximal impulse, No cardiac thrills are palpable; S1 and S2; No gallop/S3, No gallop/S4, No diastolic murmur, No systolic murmur, No friction rub, No click, No other Gastrointestinal: No tender, No soft, No round, No distended, No pulsatile mass , No organomegaly, No guarding, No rebound, No tenderness, No hernia, No mass, No audible bowel sounds, No abnormal bowel sounds, No abdominal bruits, No spleenomegaly, No other Rectal: deferred Extremities: No normal range of motion, No non-tender, No normal inspection, No pedal edema, No calf tenderness, No normal capillary refill, No pelvis stable , No calf tenderness, No inflammation, No pedal edema, No slow capillary refill , No swelling, No other, No abrasion, No clubbing, No cyanosis, No ecchymosis, No laceration, No no lower extremity edema bilateral, No significant edema, No tenderness, No wound Neurologic/Psychiatric: alert, normal mood/affect, oriented x 3, motor weakness Skin: No normal color, No warm/dry, No cyanosis, No cool, No diaphoresis, No damp, No ecchymosis, No jaundice, No mottled, No pallor, No rash, No tattoos/ piercings, No ulcerations, No rash on exposed areas, No ulcerations on exposed areas, No other Data Review Labs Laboratory Tests 03/11/18 03:35: White Blood Count 3.9L, Red Blood Count 4.19L, Hemoglobin 9.8L, Hematocrit 31L, Mean Corpuscular Volume 74L, Mean Corpuscular Hemoglobin 23L, Mean Corpuscular Hemoglobin Concent 32, Red Cell Distribution Width 20.7H, Platelet Count 251, Mean Platelet Volume 8.7, Neutrophils (%) (Auto) 65, Lymphocytes (%) (Auto) 23, Monocytes (%) (Auto) 11, Eosinophils (%) (Auto) 1, Basophils (%) (Auto) 0, Neutrophils # (Auto) 2.6, Lymphocytes # (Auto) 0.9L, Monocytes # (Auto) 0.4, Eosinophils # (Auto) 0.1, Basophils # (Auto) 0.0, Sodium Level 139, Potassium Level 3.8, Chloride Level 106, Carbon Dioxide Level 20L, Anion Gap 13, Blood Urea Nitrogen 10, Creatinine 1.07, Estimat Glomerular Filtration Rate > 60, BUN/ Creatinine Ratio 9, Glucose Level 89, Calcium Level 9.3, Phosphorus Level 3.3, Magnesium Level 2.1, Triglycerides Level 142, Cholesterol Level 147, LDL Cholesterol Direct 93, VLDL Cholesterol 28, HDL Cholesterol 38L ECG Impression ECG Initial ECG Rhythm: Normal Sinus Initial ECG Impression: Normal A/P-Cardiology Assessment/Admission Diagnosis Acute stroke, History of DVT, on regular Xarelto, History of hypertension Plan Acute stroke, on aspirin and Xarelto. CT head did not reveal any acute abnormality. MRI brain pending. Patient will require bilateral carotid ultrasound. We will also recommend echocardiogram with bubble study to rule out intracardiac shunting. If carotid ultrasound and echocardiogram with bubble study is negative, the patient may be considered as cryptogenic stroke. However it is unlikely for paroxysmal atrial fibrillation to cause embolic stroke when the patient is on uninterrupted Xarelto. Patient may require implantable loop recorder for long-term surveillance of atrial fibrillation. If the patient does have intracardiac shunting due to an ASD or PFO on echocardiogram, he may be a candidate for ASD and PFO closure due to recurrent CVA on oral anticoagulation therapy. Hypertension: Continue current medical therapy. Thank you for your consultation. Please call me if you have any questions. Quin Otero MD, FACP, FACC, FSCAI, FHRS, CCDS Interventional Cardiology Cardiac Electrophysiology Vascular Medicine and Endovascular Interventions Clinical Quality Measures DVT/VTE Risk/Contraindication: Risk Factor Score Per Nursin RFS Level Per Nursing on Admit: 2=Moderate Stroke: Date of last known well: Mar 10, 2018 Sonia OTERO MD Mar 11, 2018 12:45
--- NOTE | 2018-03-11 14:56 | Physical Therapy Daily Note ---
PT Daily Note-Current Subjective Pt reports he is feeling stronger by the minute. Plans to come to rehab unit tomorrow. Mental Status Patient Orientation: Person, Place, Time Transfers Functional [place] Measure 0=Not Assessed/NA 4=Minimal Assistance 1=Total Assistance 5=Supervision or Setup 2=Maximal Assistance 6=Modified [place] 3=Moderate Assistance 7=Complete IndependenceIRFPAI Quality Coding Scale 6 Independent with activity with or without an assistive device 5 Patient requires set up or clean up by helper. Patient completes activity by themselves 4 Supervision or touching assist (CGA). [place] provide cues , steadying assist 3 The helper provides less than half the effort to complete the activity 2 The helper provides more than half the effort to complete the activity 1 Dependent. The helper does all the effort to complete an activity 7 Patient refused to complete or attempt activity 9 The patient did not perform the activity before the current illness or injury 88 Not attempted due to Medical conditions or safety concerns Transfers (B, C, W/C) (FIM): 4 Weight Bearing Right Lower Extremity: Right Full Weight Bearing Left Lower Extremity: Left Full Weight Bearing Gait Training Gait (FIM): 3 Distance (FIM): 3=608-40 ft Distance: 50 Gait Level of Assist: 4 Gait Persons Needed: 1 Gait Assistive Device: FWW Ambulate 50 ft x 5 trials with education on walker sequence and safety. Assessment Pt showing improved ability to advance the left LE during swing phase of gait and also able to stabilize during stance. PT Short Term Goals Short Term Goals Time Frame: Mar 18, 2018 Transfers (B,C,W/C) (FIM): 4 Gait (FIM): 3 Distance (FIM): 3=150 ft Gait Distance Comment: 150ft with FWW and Min Assist Gait Level of Assist: 4 Gait Assistive Device: FWW PT Manager Cardiovascular Goals Care Home Goals PT Care Home Goals Time Frame: Mar 25, 2018 Transfers (B,C,W/C) (FIM): 6 Gait (FIM): 6 Gait distance (FIM): 3=150 ft Gait Assistive Device: Cane Small Base Quad Stairs (FIM): 5 # of Steps: 12 PT Plan Problem List Problem List: Balance, Gait Treatment/Plan Treatment Plan: Continue Plan of Care Treatment Plan: Bed Mobility, Functional Strength, Gait, Safety, Therapeutic Exercise Treatment Duration: Mar 25, 2018 Frequency: 11 times per week Estimated Hrs Per Day: .25 hour per day Patient and/or Family Agrees t: Yes Time/GCodes Time In: 1430 Time Out: 1455 Total Billed Treatment Time: 25 Total Billed Treatment visit, FA 10 min, GT 15min LOTUS GARCIA PT Mar 11, 2018 14:56
--- NOTE | 2018-03-11 14:59 | Occupational Therapy Eval ---
OT Evaluation-General/PLF Medical Diagnosis Admission Date Mar 10, 2018 at 15:46 Medical Diagnosis: acute CVA Onset Date: Mar 10, 2018 Therapy Diagnosis Therapy Diagnosis: decr self care, decr act isabella, decr funct mob, decr self care , decr balance Height/Weight Height (Feet): 5 Height (Inches): 8.00 Weight (Pounds): 170 Weight (Ounces): 1.0 Precautions Precautions/Isolations: Fall Prevention, Standard Precautions Safety Interventions: Bed Exit Alarm Referral Physician: Joan Holbrook Referral Reason: Evaluation/Treatment Medical History Pertinent Medical History: Alcoholism, CVA (retinal artery), GERD, HTN, Hypothroidism Additional Medical History Hx DVT. Hiatal hernia. Hemorrhoids. Current History Was forming up concrete when his legs became weak and he fell, hitting his head on a brick wall, resulting in laceration. He had weakness in L UE as well as L LE. Reviewed History: Yes Social History Home: Single Level (double wide mobile home) Current Living Status: Alone Steps Into Home: 5 ADL-Prior Level of Function Functional [place] Measure 0=Not Assessed/NA 4=Minimal Assistance 1=Total Assistance 5=Supervision or Setup 2=Maximal Assistance 6=Modified [place] 3=Moderate Assistance 7=Complete [place] ADL PLOF Comments Pt reported that he was previously able to manage all of his basic self care needs (dressing, bathing, toileting,eating, grooming). He also managed cooking, cleaning, laundry, medications, check book without help. 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 Pain reported 0/10 Appearance Alert, cooperative Mental Status/Objective Patient Orientation: Person, Place, Time, Situation Attachments: Central Line, Telemetry Current Glasses/Contacts: Yes (reading) Hearing Aids: No Dentures/Partials: No Hand Dominance: Right Upper Extremity ROM Grossly WFL but L arm lags a little behind R Upper Extremity Coordination Impaired L hand as shown by difficulty holding on to stocking Upper Extremity Sensation Pt reported hands feel like there is a "band" around his wrists. Upper Extremity Strength Grossly 4/5 bilat, with L a little weaker than R Grossly intact, with no visual field cut. Able to track in all directions, converge, diverge. ADL-Treatment ADL-Current Pt was attempting to get up to edge of bed unsupervised, with decreased sitting balance. He used L UE as an assist to move from supine to sit EOB. Close supervision and CGA for scooting forward to edge of bed. He was able to reach forward to pull slipper socks off feet with some difficulty while feet were flat on the floor (assist needed to position L foot) but balance was challenged. He was unable to maintain L foot crossed on his lap to put sock back on and lost his balance while sitting EOB, although he was able to correct it with a little help. He was somewhat impulsive and nursing notified of safety concern that he would attempt to get up himself. Nursing notes indicate he has been able to feed himself but it has been taking two people to toilet him. Functional [place] Measure 0=Not Assessed/NA 4=Minimal Assistance 1=Total Assistance 5=Supervision or Setup 2=Maximal Assistance 6=Modified [place] 3=Moderate Assistance 7=Complete IndependenceIRFPAI Quality Coding Scale 6 Independent with activity with or without an assistive device 5 Patient requires set up or clean up by helper. Patient completes activity by themselves 4 Supervision or touching assist (CGA). [place] provide cues , steadying assist 3 The helper provides less than half the effort to complete the activity 2 The helper provides more than half the effort to complete the activity 1 Dependent. The helper does all the effort to complete an activity 7 Patient refused to complete or attempt activity 9 The patient did not perform the activity before the current illness or injury 88 Not attempted due to Medical conditions or safety concerns Education OT Patient Education: Purpose of tx/functional activities, Rehab process, Safety issues Teaching Recipient: Patient Teaching Methods: Demonstration, Discussion Response to Teaching: Verbalize Understanding, Return Demonstration, Reinforcement Needed OT Short Term Goals Short Term Goals Time Frame: Mar 18, 2018 Lower Body Dressing(FIM): 3 Toilet/Commode Transfer(FIM): 4 Additional Short Term Goals: 1-Demonstrate ADL Tasks, 2-Verbalize Understanding , 3-ImproveStrength/Ye[place] 1=Demonstrate adherence to instructed precautions during ADL tasks. 2=Patient will verbalize/demonstrate understanding of assistive devices/ modifications for ADL. 3=Patient will improve strength/tolerance for activity to enable patient to perform ADL's. OT Shelter Goals Medical Receptionist Biller Goals Time Frame: Mar 27, 2018 Eating (FIM): 7 Grooming(FIM): 6 Bathing(FIM): 6 Upper Body Dressing(FIM): 6 Lower Body Dressing(FIM): 6 Toileting(FIM): 6 Toilet/Commode Transfer(FIM): 6 Tub Transfer(FIM): 6 Shower Transfer(FIM): 6 Additional Goals: 1-Demonstrate ADL Tasks, 2-Verbalize Understanding, 3- ImproveStrength/Yeison 1=Demonstrate adherence to instructed precautions during ADL tasks. 2=Patient will verbalize/demonstrate understanding of assistive devices/ modifications for ADL. 3=Patient will improve strength/tolerance for activity to enable patient to perform ADL's. OT Education/Plan Problem List/Assessment Assessment: Decreased Activ Tolerance, Decreased Safety Aware, Decreased UE Strength, Dependent Transfers, Impaired Bed Mobility, Impaired Funct Balance, Impaired Self-Care Skills Pt would benefit form skilled OT to increase his independence in basic self care to allow him to safely return to his home to live alone independently Discharge Recommendations Plan/Recommendations: Continue POC Therapy D/C Recommendations: Acute Rehab Treatment Plan/Plan of Care Treatment,Training & Education: Yes Patient would benefit from OT for education, treatment and training to promote independence in ADL's, mobility, safety and/or upper extremity function for ADL' s. Plan of Care: ADL Retraining, Functional Mobility, UE Funct Exercise/Act, UE Neuromus Re-Ed/Coord, OTHER (energy conservation education) Treatment Duration: Mar 27, 2018 Frequency: 5 times per week Estimated Hrs Per Day: 1 hour per day Agreement: Yes Rehab Potential: Good Time/GCodes Start Time: 12:35 Stop Time: 12:55 Total Time Billed (hr/min): 20 Billed Treatment Time visit, 20 minutes evaluation high intensity REMI STEVENSON OT Mar 11, 2018 14:59
--- NOTE | 2018-03-11 19:08 | Consultation ---
History of Present Illness History of Present Illness Patient Consulted On(juni/time) 03/11/18 19:02 Date Seen by Provider: Mar 11, 2018 Time Seen by Provider: 19:03 History of Present Illness Mr. Heath is a 62 yo male with history of anal cancer and DVT/PE on chronic anticoagulation who was admitted last night with an ischemic stroke. 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 He fell forward into a wall and suffered a bloody scalp injury, prompting his friend to bring him to the ED. He reported left arm and leg weakness in the ED. He was diagnosed with a high right parafalcine stroke in the PREM distribution by MRI. This evening, patient reports good left arm function and left knee function, but he is barely able to move his left foot. He ambulated with a walker earlier in the afternoon. His family and friends reported speech impairment. Other than his weakness, patient reports no discomfort or paresthesias. Denies chest pain, palpitations, shortness of breath, bleeding, bruising, rash. Patient reports absolute compliance with medications and has never missed a dose of rivaroxaban or aspirin. Allergies and Home Medications Allergies Coded Allergies: lisinopril (Verified Allergy, Severe, LIPS SWELLING, 12/26/16) Nitrate (Verified Allergy, Intermediate, HIVES, 12/26/16) amlodipine besylate (Verified Adverse Reaction, Unknown, LOW BP, 12/26/16) Uncoded Allergies: MARIANNA (Adverse Reaction, Intermediate, COLD, 01/30/12) Home Medications Aspirin 81 Mg Tablet.dr, 81 MG PO DAILY, (Reported) Aspirin 325 Mg Tablet.dr, 325 MG PO DAILY, (Reported) Calcium Carbonate 300 Mg Tab.chew, 300 MG PO TID PRN for INDIGESTION, (Reported) Hydroxyzine HCl 25 Mg Tablet, 25 MG PO DAILY PRN for ITCHING, (Reported) Levothyroxine Sodium 25 Mcg Tablet, 25 MCG PO DAILY, (Reported) Losartan Potassium 50 Mg Tablet, 50 MG PO DAILY, (Reported) Pantoprazole Sodium 40 Mg Tablet.dr, 40 MG PO DAILY, (Reported) Rivaroxaban 20 Mg Tablet, 20 MG PO DAILY, (Reported) Patient Home Medication List Home Medication List Reviewed: Yes Past Edfgtog-Rktpci-Nzcarz Hx Patient Social History Alcohol Use: Regular Use Number of Drinks Today: 5 Alcohol Beverage of Choice: Beer Recreational Drug Use: No Smoking Status: Former Smoker Type Used: Cigars Former Smoker, Quit: Mar 10, 1976 Recent Foreign Travel: No Contact w/Someone Who Travel: No Recent Infectious Disease Expo: No Recent Hopitalizations: No Physical Abuse: No Sexual Abuse: No Mistreated: No Fear: No Immunizations Up To Date Tetanus Booster (TDap): More than 5yrs PED Vaccines UTD: Yes Seasonal Allergies Seasonal Allergies: No Past Medical History Surgeries: Yes (Port placement and removal) Respiratory: No Cardiac: Yes Deep Vein Thrombosis, High Cholesterol, Hypertension Neurological: Yes Stroke (Involving retinal artery) Reproductive Disorders: No Sexually Transmitted Disease: No HIV/AIDS: No Genitourinary: No Gastrointestinal: Yes Gastroesophageal Reflux, Hemorrhoids, Hiatal Hernia Musculoskeletal: No Osteoporosis Endocrine: Yes Hypothyroidsim HEENT: Yes Double 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 stroke) Hearing Impairment: Denies Cancer: No Skin (Squamous cell) Did You Recieve Any Treatments: Yes What Type of Treatment Did You: Chemotherapy, Radiation Had small squamous Psychosocial: Yes (Alcohol dependence) Integumentary: No (Oral herpes/fever blisters) Herpes Blood Disorders: Yes (iron defeciency ) Adverse Reaction/Blood Tranf: No (never received ) Family Medical History Reviewed Nursing Family Hx Cardiovascular disease Hypercholesterolemia Hypertension Myocardial infarction Osteoporosis No Family History of: AIDS Abdominal aortic aneurysm [place]'s disease Alcoholism Alzheimer's disease Aphasia Arthritis Asthma Cancer of mouth Cataracts Colon cancer Completed stroke Congenital disease Congenital heart disease Coronary thrombosis Cystic fibrosis Deafness or hearing loss Dementia Diabetes mellitus Drug abuse Dysphasia Fibrocystic disease of breast Gastroenteritis Glaucoma Headache disorder Infertility Kidney disease Neoplasm Not obtainable due to adoption Parkinson's disease Prostate cancer Psychosocial problem Respiratory disorder Seizure disorder Severe allergy Thyroid disease Tuberculosis Visual disorder Review of Systems-General Constitutional: no symptoms reported EENTM: no symptoms reported Respiratory: no symptoms reported Cardiovascular: no symptoms reported Gastrointestinal: no symptoms reported Genitourinary: no symptoms reported Musculoskeletal: muscle weakness Skin: other (scalp bleeding when first admitted) Psychiatric/Neurological: Denies Headache, Denies Numbness, Denies Paresthesia , Denies Seizure, Denies Tingling; Weakness, Other (slowed speech, no difficulty with understanding or word finding) Physical Exam-General Problems Physical Exam Vital Signs Vital Signs - First Documented 03/10/18 11:15 Temp 98.2 Pulse 128 Resp 16 B/P (MAP) 151/105 (120) Pulse Ox 98 O2 Delivery Room Air Capillary Refill : Less Than 3 SecondsLess Than 3 Seconds General Appearance: WD/WN, no apparent distress Eyes: Bilateral Eye Normal Inspection, Bilateral Eye PERRL, Bilateral Eye EOMI HEENT: PERRL/EOMI, normal ENT inspection Neck: non-tender, normal inspection Respiratory: chest non-tender, lungs clear, normal breath sounds, no respiratory distress, no accessory muscle use Cardiovascular: normal peripheral pulses, regular rate, rhythm, no edema, no gallop, no JVD, no murmur Gastrointestinal: normal bowel sounds, non tender, soft Extremities: normal inspection, no pedal edema, no calf tenderness Neurologic/Psychiatric: alert, normal mood/affect, oriented x 3, other ( halting speech, left foot weakness to dorsiflexion and plantar flexion) Skin: normal color, warm/dry Lymphatic: no adenopathy Assessment/Plan Assessment/Plan Admission Diagnosis/Plan 62 yo male with h/o anal cancer and DVT/PE on chronic anticoagulation admitted with new high right parafalcine stroke. Reportedly, he was diagnosed with a stroke in 2013, so this would be a recurrent stroke on anticoagulation and antiplatelet therapy. There is no evidence to suggest that anticoagulation is any better than antiplatelet therapy for prevention of ischemic stroke outside of an embolic phenomenon. In addition, I do not believe there is any data to suggest combined anticoagulation and antiplatelet therapy is better than antiplatelet therapy alone for treatment of atherosclerotic disease. Therefore, I agree with cardiology's recommendation to work up an embolic source of stroke. In addition to looking for an intracardiac shunt, it may be helpful to obtain dopplers of both lower extremities to identify any VTEs. If he has a recurrent DVT/PE or embolic stroke, then it may be reasonable to change his anticoagulation regimen. That being said, there is no algorithm to determine which anticoagulation agent to use next. Furthermore, there is no data to suggest there is any improvement to switching therapy after treatment failure. In that setting, it may be reasonable to continue current anticoagulation or switch to another agent of different class, such as warfarin , dabigatran or enoxaparin. If there is no evidence of a cardioembolic stroke and no evidence of recurrent VTE, then anticoagulation therapy has little role to play in the secondary prevention of neurogenic ischemia, and rivaroxaban will not need to be reconsidered. Optimal management of atherosclerotic disease would be best in that situation. Clinical Quality Measures DVT/VTE Risk/Contraindication: Risk Factor Score Per Nursin RFS Level Per Nursing on Admit: 2=Moderate Stroke: Date of last known well: Mar 10, 2018 Results Labs Labs Laboratory Tests 03/11/18 03:35: White Blood Count 3.9L, Red Blood Count 4.19L, Hemoglobin 9.8L, Hematocrit 31L, Mean Corpuscular Volume 74L, Mean Corpuscular Hemoglobin 23L, Mean Corpuscular Hemoglobin Concent 32, Red Cell Distribution Width 20.7H, Platelet Count 251, Mean Platelet Volume 8.7, Neutrophils (%) (Auto) 65, Lymphocytes (%) (Auto) 23, Monocytes (%) (Auto) 11, Eosinophils (%) (Auto) 1, Basophils (%) (Auto) 0, Neutrophils # (Auto) 2.6, Lymphocytes # (Auto) 0.9L, Monocytes # (Auto) 0.4, Eosinophils # (Auto) 0.1, Basophils # (Auto) 0.0, Sodium Level 139, Potassium Level 3.8, Chloride Level 106, Carbon Dioxide Level 20L, Anion Gap 13, Blood Urea Nitrogen 10, Creatinine 1.07, Estimat Glomerular Filtration Rate > 60, BUN/ Creatinine Ratio 9, Glucose Level 89, Calcium Level 9.3, Phosphorus Level 3.3, Magnesium Level 2.1, Triglycerides Level 142, Cholesterol Level 147, LDL Cholesterol Direct 93, VLDL Cholesterol 28, HDL Cholesterol 38L STORMY FAIRCHILD MD Mar 11, 2018 19:07
[2018-03-11] MEDS: ATORVASTATIN 80 MG (LIPITOR) TABLET PO SCH (20:16)
[2018-03-11] MEDS ORDERED: ALPRAZolam 0.5 MG (XANAX) TAB PO PRN (21:45)
[2018-03-12 00:24] VITALS: BP 118/75
[2018-03-12 04:26] VITALS: BP 120/71
[2018-03-12 05:04] LABS: BASOPHILS % (AUTO) 0 % (0-10); EOSINOPHILS # (AUTO) 0.1 10^3/uL (0.0-0.3); EOSINOPHILS % (AUTO) 2 % (0-10); HEMATOCRIT 33 % (40-54); HEMOGLOBIN 9.9 G/DL (13.3-17.7); LYMPHOCYTES # (AUTO) 0.5 X 10^3 (1.0-4.0); LYMPHOCYTES % (AUTO) 11 % (12-44); MEAN CORPUSCULAR HEMOGLOBIN 23 PG (25-34); MEAN CORPUSCULAR HGB CONC 30 G/DL (32-36); MEAN CORPUSCULAR VOLUME 75 FL (80-99); MEAN PLATELET VOLUME 8.8 FL (7.4-10.4); MONOCYTES # (AUTO) 0.3 X 10^3 (0.0-1.0); MONOCYTES % (AUTO) 7 % (0-12); NEUTROPHILS # (AUTO) 3.8 X 10^3 (1.8-7.8); NEUTROPHILS % (AUTO) 81 % (42-75); PLATELET COUNT 233 10^3/uL (130-400); RED BLOOD COUNT 4.37 10^6/uL (4.35-5.85); RED CELL DISTRIBUTION WIDTH 20.7 % (10.0-14.5); WHITE BLOOD COUNT 4.7 10^3/uL (4.3-11.0)
[2018-03-12 05:23] LABS: BUN/CREATININE RATIO 10; CALCIUM 8.9 MG/DL (8.5-10.1); CARBON DIOXIDE 21 MMOL/L (21-32); CHLORIDE 107 MMOL/L (98-107); CREATININE SERUM 1.02 MG/DL (0.60-1.30); GFR ESTIMATED > 60; GLUCOSE 104 MG/DL (70-105); POTASSIUM 3.7 MMOL/L (3.6-5.0); SODIUM 138 MMOL/L (135-145)
[2018-03-12] MEDS ORDERED: LEVOTHYROXINE 25 MCG (LEVOTHROID) TAB PO SCH (06:30)
[2018-03-12] MEDS: PANTOPRAZOLE 40 MG (PROTONIX) TAB PO SCH (06:49)
[2018-03-12] MEDS: MAGNESIUM OXIDE (MAG-OX)400 MG TAB PO SCH (06:49)
[2018-03-12] MEDS: MULTIVIT W/MINERALS TAB (THERAGRAN M) PO SCH (06:49)
[2018-03-12] MEDS: CATHETER FLUSH 10 ML SYR IV SCH (06:49)
[2018-03-12] MEDS: FOLIC ACID 1 MG TAB PO SCH (06:49)
[2018-03-12] MEDS: THIAMINE 100 MG (VITAMIN B-1) TAB PO SCH (06:49)
[2018-03-12 08:00] VITALS: BP 146/76
--- NOTE | 2018-03-12 08:13 | ST Cognitive Linguistic Eval ---
Speech Evaluation-General Medical Diagnosis acute CVA Onset Date: Mar 10, 2018 Therapy Diagnosis Therapy Diagnosis: Speech/language cognition Precautions Precautions/Isolations: Fall Prevention, Standard Precautions, Pressure Ulcer Referral Referring Physician: Dr. Holbrook Reason for Referral: Evaluation/Treatment Medical History Pertinent Medical History: Alcoholism, CVA (retinal artery), GERD, HTN, Hypothroidism Hx of CVA Current History Possible CVA Reviewed History: Yes Social History Current Living Status: Alone Speech PLF-Current Status Prior Level of Function Pt was independent Subjective Pt up in chair, pleasant and cooperative. Pain Numeric Pain Scale: 0-No Pain Language Eval: Auditory Comprehends Simple Yes/No Ques: Functional Follows 1-Step Commands: Functional Follows Complex Directions: Functional Follows General Conversations: Functional Language Eval: Verbal Language Completes Spontaneous Greeting: Functional Produces Auto, Serial Info: Functional Word Finding: Functional Requests Basic Needs: Functional States Basic Personal Info: Functional Expresses Complex Ideas: Functional Language Evaluation: Reading NT Objective Cognitive Domain Attention: WNL Memory: WNL Problem Solving: Functional Objective Results [facility] Cognitive/Communication Assessment was administered to determine cognitive-linguistic functioning. Results are as follows: Orientation - Pt oriented x 3 Memory - 3 word recall was 3/3 correct for immediate, 3/3 for delayed and 3/3 for remote delay. Organization/sequencing - Pt was 4/4 correct Problem Solving - Simple 4/4 correct; Abstract/complex 2/2 correct and Comparisons was 3/4 correct. Speech/language WNL Oral Motor/Speech Production WNL Impression Functional cognitive-linguistic skills. Communication/Social Cognition Comprehension: 7 Expression: 7 Social Interaction: 7 Problem Solvin Memory: 7 Speech Short Term Goals Short Term Goals Short Term Goals No goals established as skilled ST not indicated. Speech Social Work Instructor Goals Social Work Instructor Goals No LTGs established as skilled ST not indicated. Speech-Plan Patient/Family Goals Patient/Family Goals: to return home Treatment Plan Speech Therapy Treatment Plan: Discontinue ST Skilled ST not indicated Frequency: Modified Program (IRF) (0) Estimated Hrs Per Day: Other (0) Rehab Potential: Good Pt/Family Agrees to Plan: Yes Safety Risks/Education Teaching Recipient: Patient Teaching Methods: Discussion Response to Teaching: Verbalize Understanding Time Speech Therapy Time In: 13:05 Speech Therapy Time Out: 13:35 Total Billed Time: 30 Billed Treatment Time 1, SPSNDCOMP This note was meant for 03/11/2018 PIPER REDDY Mar 12, 2018 08:13
[2018-03-12] MEDS ORDERED: ASPIRIN E.C. 325 MG (ECOTRIN) TABLET PO SCH (09:00)
[2018-03-12] MEDS ORDERED: RIVAROXABAN 20 MG TABLET (XARELTO) PO SCH (09:00)
[2018-03-12] MEDS ORDERED: PANTOPRAZOLE 40 MG (PROTONIX) TAB PO SCH (09:00)
[2018-03-12] MEDS ORDERED: NON-FORMULARY MEDICATION 1 EA EA (Losartan Potassium 50 MG) PO SCH (09:00)
[2018-03-12] MEDS: RIVAROXABAN 20 MG TABLET (XARELTO) PO SCH (09:09)
[2018-03-12] MEDS: LOSARTAN 50 MG (COZAAR) TAB PO SCH (09:09)
--- NOTE | 2018-03-12 09:31 | Diagnostic Imaging Report ---
EXAM: US VENOUS LOWER EXT YU INDICATION: Lower extremity weakness. COMPARISON: None. TECHNIQUE: Duplex, calderon-scale and color-flow imaging of the bilateral lower extremities venous system was performed FINDINGS: The bilateral common femoral vein, superficial femoral vein, profunda femoris, and popliteal veins are normal. These vessels show normal compressibility, color flow, and doppler augmentation. The deep calf veins demonstrate no distinct intraluminal thrombus where seen. IMPRESSION: Negative venous Doppler of the bilateral lower extremities. Dictated by: Dictated on workstation # [id number]
[2018-03-12] MEDS ORDERED: ATOR80TA76 PO (10:37)
--- NOTE | 2018-03-12 10:38 | Discharge Summary-Hospitalist ---
Diagnosis/Chief Complaint Date of Admission Mar 10, 2018 at 15:46 Date of Discharge Discharge Date: Mar 12, 2018 Admission Diagnosis Assessment: Acute CVA w/left sided weakness now improved with only left foot and lower leg residual Prior CVA 2015 with peripheral vision loss residual HTN HLP PE hx maintained on Xarelto long-term Varicose vein procedure 08/10 placed on 325mg ASA daily SCC Anal cancer managed by Dr Quigley Plan: Xarelto ASA 325mg Cardiology and Hematology consultations are appreciated Statin initiated Discharge Diagnosis (1) CVA (cerebral vascular accident) Status: Acute (2) Lower extremity weakness Status: Acute (3) Fall on same level Status: Acute (4) Laceration of scalp Status: Acute (5) GERD (gastroesophageal reflux disease) Status: Chronic (6) Anal cancer Status: Chronic (7) Hypertension Status: Chronic (8) Hx pulmonary embolism Status: Chronic (9) Anticoagulant long-term use Status: Chronic (10) Aspirin long-term use Status: Chronic (11) Varicose veins of both lower extremities Status: Chronic (12) Hemianopia of left eye Status: Chronic (13) Alcohol dependence Status: Chronic Discharge Summary Discharge Physical Exam Allergies: Coded Allergies: lisinopril (Verified Allergy, Severe, LIPS SWELLING, 12/26/16) Nitrate (Verified Allergy, Intermediate, HIVES, 12/26/16) amlodipine besylate (Verified Adverse Reaction, Unknown, LOW BP, 12/26/16) Uncoded Allergies: MARIANNA (Adverse Reaction, Intermediate, COLD, 01/30/12) Vitals & I&Os Vital Signs Date Time Temp Pulse Resp B/P (MAP) Pulse Ox O2 Delivery O2 Flow Rate FiO2 03/12/18 11:00 93 16 146/76 96 Room Air 03/12/18 08:00 97.5 General Appearance: No Apparent Distress, WD/WN Respiratory: Chest Non Tender, Lungs Clear, Normal Breath Sounds, No Accessory Muscle Use, No Respiratory Distress Cardiovascular: Regular Rate, Rhythm, No Edema, No Gallop, No JVD, No Murmur, Normal Peripheral Pulses Neurologic/Psychiatric: Alert, Oriented x3, Normal Mood/Affect, Motor Weakness (left leg) Hospital Course Hospital course: Patient had an uneventful hospital course he was placed in the ICU for acute stroke but not a TPA candidate per [facility] due to fall with head injury and current anticoagulation status. Cardiology was consulted and workup ensued. Hematology was consulted who generally sees him on a regular basis for rectal cancer and he recommended continuing aspirin therapy and anticoagulation at this current time. Overall he did well having no dysphagia and felt strong enough to dissipate an intensive inpatient rehabilitation protocol so therefore he was discharged inpatient rehabilitation in good and stable status will aggressively treat the left foot and left leg weakness per protocol. Labs (last 24 hrs) Patient resulted labs reviewed. Pending Labs Discussion & Recommendations Discharge Planning: <30 minutes discharge planning Discharge Home Medications: Active Scripts Active Reported Aspirin EC (Aspirin) 81 Mg Tablet.dr 81 Mg PO DAILY Tums (Calcium Carbonate) 300 Mg Tab.chew 300 Mg PO TID PRN Aspirin EC (Aspirin) 325 Mg Tablet.dr 325 Mg PO DAILY Hydroxyzine HCl 25 Mg Tablet 25 Mg PO DAILY PRN Xarelto (Rivaroxaban) 20 Mg Tablet 20 Mg PO DAILY Losartan Potassium 50 Mg Tablet 50 Mg PO DAILY Levothyroxine Sodium 25 Mcg Tablet 25 Mcg PO DAILY Pantoprazole Sodium 40 Mg Tablet.dr 40 Mg PO DAILY Instructions to patient/family Please see electronic discharge instructions given to patient. Clinical Quality Measures DVT/VTE Risk/Contraindication: Risk Factor Score Per Nursin RFS Level Per Nursing on Admit: 2=Moderate Stroke: Date of last known well: Mar 10, 2018 Problem Qualifiers (1) CVA (cerebral vascular accident): CVA mechanism: unspecified Qualified Codes: I63.9 - Cerebral infarction, unspecified (2) Lower extremity weakness: Laterality: left Qualified Codes: R29.898 - Other symptoms and signs involving the musculoskeletal system (3) Fall on same level: Encounter type: initial encounter Qualified Codes: W18.30XA - Fall on same level, unspecified, initial encounter (4) Laceration of scalp: Encounter type: initial encounter Qualified Codes: S01.01XA - Laceration without foreign body of scalp, initial encounter (5) Varicose veins of both lower extremities: Varicose vein complication: unspecified Qualified Codes: I83.93 - Asymptomatic varicose veins of bilateral lower extremities (6) Alcohol dependence: Substance use status: unspecified alcohol-induced disorder Qualified Codes: F10.29 - Alcohol dependence with unspecified alcohol-induced disorder MELA GRULLON DO Mar 12, 2018 10:37
[2018-03-12 11:00] VITALS: BP 146/76
[2018-03-12] MEDS ORDERED: ASPI-983 PO (13:51)
== END 2018-03-12 11:00 | DRG 65 ==
LOC: EDUNIT# 11:14 → ER 11:15 → ICU 15:46 → 4TH 03-11 15:26
PROVIDERS: ADMIT Internal Medicine; ATTEND Internal Medicine
DX: I63.9 Cerebral infarction, unspecified (principal); G81.94 Hemiplegia, unspecified affecting left nondominant side; S01.01XA Laceration without foreign body of scalp, initial encounter; I10 Essential (primary) hypertension; E78.00 Pure hypercholesterolemia, unspecified; E03.9 Hypothyroidism, unspecified; K21.9 Gastro-esophageal reflux disease without esophagitis; K44.9 Diaphragmatic hernia without obstruction or gangrene; F10.20 Alcohol dependence, uncomplicated; M81.0 Age-related osteoporosis without current pathological fracture; I83.93 Asymptomatic varicose veins of bilateral lower extremities; I69.398 Other sequelae of cerebral infarction; R29.703 NIHSS score 3; W01.10XA Fall on same level from slipping, tripping and stumbling with subsequent striking against unspecified object, initial encounter; Y92.017 Garden or yard in single-family (private) house as the place of occurrence of the external cause; Z86.711 Personal history of pulmonary embolism; Z86.718 Personal history of other venous thrombosis and embolism; Z79.01 Long term (current) use of anticoagulants; Z79.82 Long term (current) use of aspirin; Z87.891 Personal history of nicotine dependence; Z85.048 Personal history of other malignant neoplasm of rectum, rectosigmoid junction, and anus; Z23 Encounter for immunization
CPT/HCPCS: 36415; 70496; 70498; 70551; 71045; 72125; 80048; 80053; 80061; 80320; 81000; 83735; 84100; 84484; 85025; 85379; 85610; 85730; 90471; 90686; 90715; 93005; 93041; 93306; 93970; 94664

== ENCOUNTER 2018-03-12 11:10 | Inpatient (IN) | payer BC ==
[~2018-03-12] VITALS: Ht 172.7 cm; Wt 74.4 kg
[~2018-03-12 11:10] MED LIST changes: +ASPI-983 PO; +ASPI325T32 PO; +ATOR80TA76 PO; +CALC300T4 PO; +LOSA50TA7 PO; +RIVA20TA PO
--- NOTE | 2018-03-12 11:37 | Physical Therapy Evaluation ---
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 Admitted to ER. Stroke protocol initiated. Pt admitted to ICU. Reviewed History: Yes Social History Home: Single Level Current Living Status: Alone Entry Into Home: Stairs With Railing PT Steps Into Home: 5 Prior/Core FIM Prior Level of Function Functional [place] Measure 0=Not Assessed/NA 4=Minimal Assistance 1=Total Assistance 5=Supervision or Setup 2=Maximal Assistance 6=Modified [place] 3=Moderate Assistance 7=Complete IndependenceIRFPAI Quality Coding Scale 6 Independent with activity with or without an assistive device 5 Patient requires set up or clean up by helper. Patient completes activity by themselves 4 Supervision or touching assist (CGA). [place] provide cues , steadying assist 3 The helper provides less than half the effort to complete the activity 2 The helper provides more than half the effort to complete the activity 1 Dependent. The helper does all the effort to complete an activity 7 Patient refused to complete or attempt activity 9 The patient did not perform the activity before the current illness or injury 88 Not attempted due to Medical conditions or safety concerns Bed Mobility: 7 Transfers (B,C,W/C) (FIM): 7 Gait: 7 PT Evaluation-Current Subjective Patient in bed pre tx, agrees to PT, no complaints of pain. Pt/Family Goals "to get my left leg stronger" Objective Patient Orientation: Person, Place, Situation ROM/Strength ROM Lower Extremities WNL Strenght Lower Extremities right lower extremity 5/5 gross, left lower extremity 2/5 gross except for dorsiflexion/plantarflexion 0/5 Neuromuscular (Tone, Coordination, Reflexes) Patient has good peripheral vision, good tracking on the right and mildly impaired tracking on the left (tracks but turns head) Sensory Vision: Hearing: Functional Sensation Right Lower Extremit: Intact Sensation Left Lower Extremity: Intact Sensation Lower Extremities Patient has intact light touch sensation in his left leg, no complaints of numbness or tingling. Transfers Functional [place] Measure 0=Not Assessed/NA 4=Minimal Assistance 1=Total Assistance 5=Supervision or Setup 2=Maximal Assistance 6=Modified [place] 3=Moderate Assistance 7=Complete IndependenceIRFPAI Quality Coding Scale 6 Independent with activity with or without an assistive device 5 Patient requires set up or clean up by helper. Patient completes activity by themselves 4 Supervision or touching assist (CGA). [place] provide cues , steadying assist 3 The helper provides less than half the effort to complete the activity 2 The helper provides more than half the effort to complete the activity 1 Dependent. The helper does all the effort to complete an activity 7 Patient refused to complete or attempt activity 9 The patient did not perform the activity before the current illness or injury 88 Not attempted due to Medical conditions or safety concerns Transfers (B, C, W/C) (FIM): 4 Scootin Rollin Roll Left to Right (QC): 4 Supine to/from Sit: 5 Sit to/from Stand: 4 Sit to Lying (QC): 4 Lying to Sitting/Side of Bed(Q: 4 Sit to Stand (QC): 4 Chair/Lsf-ld-Ihjnl Xfer(QC): 4 Car Transfer (QC): 4 Patient performs bed mobility with SBA (he has some difficulty with supine <-> sit but can do it without assist), sit to stand CGA, transfers CGA, car transfer CGA. Patient is mildly impulsive and needs cues for safety and hand placement. Gait Does the Patient Walk?: Yes Mode of Locomotion: Walk Anticipated Mode of Locomotion: Walk Gait (FIM): 4 Walk 10 feet (QC): 4 Walk 50 ft with 2 Turns(QC): 4 Walk 150 ft (QC): 4 Walking 10ft/uneven surface-QC: 4 Distance: 180', 100' Gait Level of Assist: 4 Gait Persons Needed: 1 Gait Assistive Device: FWW Comments/Gait Description Patient can ambulate 180' with a rolling walker with CGA (including 50' with at least 2 turns of 90 degrees and 10' over an uneven surface). He has weakness in the left leg and cannot bear much weight through it and has to try to keep it in extension, it actually hyperextends occasionally. Patient is mildly impulsive with ambulation and needs cues for direction and safety. Wheelchair Training Does the Pt Use a Wheelchair?: No Stairs Stairs (FIM): 1 #of Steps: 1 Level of Assist: 4 1 Step (curb) (QC): 4 Assistive Device: Walker Patient can go up and down 1 step using a rolling walker with CGA. He needs cues for foot placement and safety. Patient is impulsive. Balance Sitting Static: Normal Sitting Dynamic: Normal Standing Static: Fair Standing Dynamic: Fair Treatment sit to stand 2 sets of 10 Assessment/Needs Patient impairments in mobility, strength, endurance. He is impulsive and is at risk for a fall. Rehab Potential: Fair PT Short Term Goals Short Term Goals Time Frame: Mar 19, 2018 Transfers (B,C,W/C) (FIM): 5 Gait (FIM): 5 Gait Distance Comment: 200' Gait Level of Assist: 5 Gait Assistive Device: FWW PT Nursery Attendant Goals Nursery Attendant Goals PT Nursery Attendant Goals Time Frame: Apr 02, 2018 Transfers (B,C,W/C) (FIM): 6 Sit to Lying (QC): 6 Lying-Sitting on Side/Bed(QC): 6 Sit to Stand (QC): 6 Rollin Roll Left to Right (QC): 6 Chair/Qqj-um-Nttes Xfer(QC): 6 Car Transfer (QC): 6 Gait (FIM): 6 Distance: 300' Walk 10 feet (QC): 6 Walk 10ft-Uneven Surface(QC): 6 Walk 50ft with 2 Turns (QC): 6 Walk 150 ft (QC): 6 Gait Level of Assist: 6 Gait Assistive Device: FWW Stairs (FIM): 2 # of Steps: 4 1 Step (curb) (QC): 4 4 Steps (QC): 4 Stairs Level Of Assist: 5 PT Plan Problem List Problem List: Activity Tolerance, Functional Strength, Safety, Balance, Gait, Transfer, Bed Mobility Treatment/Plan Treatment Plan: Continue Plan of Care Treatment Plan: Bed Mobility, Education, Functional Activity [place], Functional Strength, Group Therapy, Gait, Safety, Therapeutic Exercise, Transfers Treatment Duration: Apr 02, 2018 Frequency: At least 5 of 7 days/Wk (IRF) Estimated Hrs Per Day: 1.5 hours per day Patient and/or Family Agrees t: Yes Safety Risks/Education Patient Education: Gait Training, Transfer Techniques, Steps, Correct Positioning, Disease Process, Safety Issues Teaching Recipient: Patient Teaching Methods: Demonstration, Discussion Response to Teaching: Reinforcement Needed Discharge Recommendations Plan Patient will perform bed mobility and transfer training, balance and endurance training, functional strengthening, stair training, gait training, and education to improve functional mobility and independence at home. Therapy D/C Recommendations: Home w/ Family Support Time/GCodes Time In: 1100 Time Out: 1130 Total Billed Treatment Time: 30 Total Billed Treatment 1 visit ELDON 30' MAHSA MCGHEE PT Mar 12, 2018 11:37
[2018-03-12] MEDS ORDERED: CALCIUM CARBONATE 500 MG (TUMS) TAB.CHEW PO PRN (11:45)
[2018-03-12] MEDS ORDERED: BISACODYL 10 MG SUPP (DULCOLAX) PR PRN (11:45)
[2018-03-12] MEDS ORDERED: MILK OF MAGNESIA 400 MG/5 ML 30 ML UDC PO PRN (11:45)
[2018-03-12] MEDS ORDERED: LORazepam INJ 2 MG/ML (ATIVAN) VIAL IM/IV PRN (11:45)
[2018-03-12] MEDS ORDERED: SENNA W/DOCUSATE (SENOKOT S) TABLET PO PRN (11:45)
[2018-03-12] MEDS ORDERED: LORazepam 1 MG (ATIVAN) TAB PO PRN (11:45)
[2018-03-12] MEDS ORDERED: CATHETER FLUSH 10 ML SYR IV PRN (11:45)
[2018-03-12] MEDS ORDERED: ALPRAZolam 0.5 MG (XANAX) TAB PO PRN (11:45)
[2018-03-12] MEDS ORDERED: ONDANSETRON 4 MG (ZOFRAN) ORAL DISSOLVE TAB SL PRN (11:45)
[2018-03-12] MEDS ORDERED: ANTACID SUSP 30 ML UDC (MYLANTA) PO PRN (11:45)
[2018-03-12] MEDS ORDERED: ONDANSETRON 4 MG/2 ML (SDV) Z0FRAN IV PRN (11:45)
[2018-03-12 12:28] VITALS: BP 122/79
--- NOTE | 2018-03-12 13:36 | Occupational Therapy Eval ---
OT Evaluation-General/PLF Medical Diagnosis Admission Date Mar 12, 2018 Medical Diagnosis: CVA Onset Date: Mar 10, 2018 Therapy Diagnosis Therapy Diagnosis: decr self care, decr act isabella, decr funct mob, decr self care , decr balance Height/Weight Height (Feet): 5 Height (Inches): 8.00 Weight (Pounds): 164 Weight (Ounces): 0.0 Precautions Precautions/Isolations: Fall Prevention, Standard Precautions Referral Physician: Russell Referral Reason: Evaluation/Treatment Medical History Pertinent Medical History: Alcoholism, CVA (retinal artery), GERD, HTN, Hypothroidism Additional Medical History Hx DVT. Hiatal hernia. Hemorrhoids. Rectal cancer Current History Was forming up concrete when his legs became weak and he fell, hitting his head on a brick wall, resulting in laceration. He had weakness in L UE ans well as L LE Reviewed History: Yes Social History Home: Single Level Current Living Status: Alone Entry Into Home: Stairs With Railing Steps Into Home: 5 ADL-Prior Level of Function Functional [place] Measure 0=Not Assessed/NA 4=Minimal Assistance 1=Total Assistance 5=Supervision or Setup 2=Maximal Assistance 6=Modified [place] 3=Moderate Assistance 7=Complete [place] ADL PLOF Comments Pt reported that he was previously able to manage all of his basic self care needs (dressing, bathing, grooming, toileting, eating). He also managed cooking , cleaning, laundry, medications, check book without help. 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 Agreeable to OT. Pain reported 0/10 Appearance Alert, cooperative Mental Status/Objective Patient Orientation: Person, Place, Time, Situation Attachments: [place] Lock Current Glasses/Contacts: Yes (reading) Hearing Aids: No Dentures/Partials: No Hand Dominance: Right Upper Extremity ROM Grossly WFL bilat Upper Extremity Coordination Slightly impaired L hand Upper Extremity Sensation No problems per pt report Upper Extremity Strength Grossly 4+/5 bilat Vision grossly intact, with no obvious visual field cut. Able to track in all directions, converge ADL-Treatment ADL-Current Pt requested a shower. He walked from gym back to his room with CGA, FWW, frequent cues to get walker closer to him, stopping at midpoint for recovery break. Steps very deliberately with Hema FLORES. Sat EOB with cues for transfer technique. Walked with CGA, FWW to bathroom and got on/off toilet with CGA, using grab bar for balance. managed clothing with CGA and hygiene with SBA due to decreased balance. Walked with CGA, FWW to shower and transferred into shower and on/off bench with CGA and pt education for technique. Pt washed and dried all parts but needed CGA for standing to dry bottom. Walked to bed to sit to dress. Required cues for body and walker placement to prepare to sit EOB. Able to don shirt, pants, socks with close SBA due to decreased balance and CGA for standing. Struggled with socks. Pt reported being able to open packages, feed himself, get a drink without help but extra time. Pt left up in bed, all needs met. Functional [place] Measure 0=Not Assessed/NA 4=Minimal Assistance 1=Total Assistance 5=Supervision or Setup 2=Maximal Assistance 6=Modified [place] 3=Moderate Assistance 7=Complete IndependenceIRFPAI Quality Coding Scale 6 Independent with activity with or without an assistive device 5 Patient requires set up or clean up by helper. Patient completes activity by themselves 4 Supervision or touching assist (CGA). [place] provide cues , steadying assist 3 The helper provides less than half the effort to complete the activity 2 The helper provides more than half the effort to complete the activity 1 Dependent. The helper does all the effort to complete an activity 7 Patient refused to complete or attempt activity 9 The patient did not perform the activity before the current illness or injury 88 Not attempted due to Medical conditions or safety concerns Eating (FIM): 6 (Opens packages, feeds self, gets a drink without help but with extra time) Eating (QC): 6 Bathing (FIM): 4 (Washed and dried all parts except back, shower bench, grab bar, hand held shower. CGA for standing to dry bottom. FWW) Shower/Bathe Self (QC): 4 (CGA) Upper Body Dressing (FIM): 5 (Close supervision due to balance) Upper Body Dressing (QC): 4 (supervision) Lower Body Dressing (FIM): 4 (CGA to stand to pull up pants, FWW. Supervision for socks) Lower Body Dressing (QC): 4 (CGA) On/Off Footwear (QC): 4 (supervision) Toileting (FIM): 4 (CGA, tall toilet grab bar, FWW. managed clothing CGA and hygiene SBA) Toileting Hygiene (QC): 4 (CGA) Toilet/Commode Transfer (FIM): 4 (CGA, tall toilet, grab bar) Toilet Transfer (QC): 4 (CGA) Shower Transfer (FIM): 4 (CGA, shower bench, grab bar, FWW) Education OT Patient Education: Modified ADL techniques, Progress toward Goal/Update tx plan, Purpose of tx/functional activities, Rehab process, Safety issues, Transfer techniques Teaching Recipient: Patient Teaching Methods: Demonstration, Discussion Response to Teaching: Verbalize Understanding, Return Demonstration, Reinforcement Needed OT Short Term Goals Short Term Goals Time Frame: Mar 19, 2018 Grooming(FIM): 5 Bathing(FIM): 5 Upper Body Dressing(FIM): 5 Lower Body Dressing(FIM): 5 Toileting(FIM): 5 Toilet/Commode Transfer(FIM): 5 Shower Transfer(FIM): 5 Additional Short Term Goals: 1-Demonstrate ADL Tasks, 2-Verbalize Understanding , 3-ImproveStrength/Yeison 1=Demonstrate adherence to instructed precautions during ADL tasks. 2=Patient will verbalize/demonstrate understanding of assistive devices/ modifications for ADL. 3=Patient will improve strength/tolerance for activity to enable patient to perform ADL's. OT Halfway Goals Tank Car Inspector Goals Time Frame: Apr 02, 2018 Eating (FIM): 7 Eating (QC): 6 Groomin Oral Hygiene (QC): 6 Bathing(FIM): 6 Shower/Bathe Self (QC): 6 Upper Body Dressing(FIM): 6 Upper Body Dressing (QC): 6 Lower Body Dressing(FIM): 6 Lower Body Dressing (QC): 6 On/Off Footwear (QC): 6 Toileting(FIM): 6 Toileting Hygiene (QC): 6 Toilet/Commode Transfer(FIM): 6 Toilet/Commode Transfer (QC): 6 Shower Transfer(FIM): 6 Additional Goals: 1-Demonstrate ADL Tasks, 2-Verbalize Understanding, 3- ImproveStrength/Yeison 1=Demonstrate adherence to instructed precautions during ADL tasks. 2=Patient will verbalize/demonstrate understanding of assistive devices/ modifications for ADL. 3=Patient will improve strength/tolerance for activity to enable patient to perform ADL's. OT Education/Plan Problem List/Assessment Assessment: Decreased Activ Tolerance, Decreased Safety Aware, Decreased UE Strength, Dependent Transfers, Impaired Bed Mobility, Impaired Funct Balance, Impaired Self-Care Skills Pt would benefit from skilled OT to increase his independence in basic self care to allow him to safely return home after stroke with L sided weakness Discharge Recommendations Plan/Recommendations: Continue POC Treatment Plan/Plan of Care Treatment,Training & Education: Yes Patient would benefit from OT for education, treatment and training to promote independence in ADL's, mobility, safety and/or upper extremity function for ADL' s. Plan of Care: ADL Retraining, Functional Mobility, Group Exercise/Act as Ind ( education, exercise, functional activity, socialization, communication, energy conservation education), UE Funct Exercise/Act, UE Neuromus Re-Ed/Coord, Visual/ Perceptual Retrain (as needed) Treatment Duration: Apr 02, 2018 Frequency: At least 5 of 7 days/Wk (IRF) Estimated Hrs Per Day: 1.5 hours per day Agreement: Yes Rehab Potential: Fair Time/GCodes Start Time: 11:30 Stop Time: 12:25 Total Time Billed (hr/min): 55 Billed Treatment Time visit, 10 minutes evaluation high intensity, 45 minutes ADL REMI STEVENSON OT Mar 12, 2018 13:36
[2018-03-12] MEDS ORDERED: ASPI-983 PO (13:51)
[2018-03-12] MEDS ORDERED: LIDOCAINE 1% INJ 20 ML 20 ML VIAL ONE (14:38)
--- NOTE | 2018-03-12 15:13 | Implantation of Loop Monitor ---
Implant of Loop Monitior PROCEDURE PHYSICIAN: Quin Otero MD IMPLANTATION OF LOOP MONITOR REPORT DATE OF PROCEDURE: 03/12/18 ATTENDING PHYSICIAN: Dr. Dilan Otero. REFERRING PHYSICIAN: Dr Joan Holbrook PERFORMING PHYSICIAN: Dr. Dilan Otero. INDICATION: Cryptogenic Stroke. PREOP DIAGNOSIS: Cryptogenic Stroke POSTOP DIAGNOSIS: s/p implantation of loop recorder. PROCEDURE DETAILS: The patient is a 62 male with cryptogenic stroke requiring long-term surveillance. Therefore implantable loop recorder was discussed and agreed with the patient. Informed consent was taken. All risks and complications were discussed at length. The patient was draped and prepped in the usual sterile fashion. Local anesthesia was lidocaine, which was given in the substernal area close to the 4th intercostal space. Loop monitor was implanted according to the protocol. Steri-Strips were placed at the end of the procedure. There were no complications and the patient tolerated the procedure well. ANESTHESIA: Local anesthesia with lidocaine. COMPLICATIONS: None CONTRAST/FLUOROSCOPY: None CONCLUSION: 1. Successful implantation of loop monitor for Cryptogenic Stroke. 2. No complication and the patient tolerated the procedure well. Quin Otero MD, RS, CCDS Cardiac Electrophysiology Sonia OTERO MD Mar 12, 2018 3:13 pm
--- NOTE | 2018-03-12 15:30 | Therapy Group Daily Note ---
Therapy Daily Group Note Patient Education Topic Home Safety, Other List Below (Fall Prevention ) Exercises LE Seated Exercise, UE Exercise Other/Notes Pt ambulates to PT/OT Group using FWW at close SBA. Group consists of Introduction (Name, Where you are from and An example of a fall you have had), Socialization, Pt led Seated UE/LE EX, Home Safety & Fall Prevention Techniques. Pt actively participated in Group by leading an exercise, giving personal examples of falls and fall prevention techniques pt has used. Pt actively listened to other patients during group and brought a good sense of humor to the Group tx. Pt returned to room at end of Group with all needs met. Start Time: 13:00 Stop Time: 14:20 Total Billed Treatment Time: 80 Total Billed Treatment 1, GRP JESSICA BUTLER PECAN HULLER Mar 12, 2018 15:30
--- NOTE | 2018-03-12 15:35 | Cardiology Progress Note ---
Cardiology SOAP Progress Note Subjective: No cardiac symptoms. Objective: I&O/Vital Signs 03/12/18 12:28 Temp 98.0 Pulse 90 Resp 18 B/P (MAP) 122/79 (93) O2 Delivery Room Air Weight (Pounds): 164 Weight (Ounces): 0.0 Weight (Calculated Kilograms): [id number] Constitutional: No appears stated age, No AAO x 3, No apparent distress, No PERRL, No well-developed, No well-nourished, No other Respiratory: No accessory muscle use, No respiratory distress, No chest tender , No chest expansion is symmetric; chest is bilaterally symmetric; No lungs clear to percussion; lungs clear to auscultation; No crackles, No rhonchi, No rales, No stridor, No wheezing, No pleural rub, No other Cardiovascular: regular rate-rhythm; No irregularly irregular, No extra beats, No parasternal heave is noted, No JVD, No edema, No bradycardia, No tachycardia , No point of maximal impulse, No cardiac thrills are palpable; S1 and S2; No gallop/S3, No gallop/S4, No diastolic murmur, No systolic murmur, No friction rub, No click, No other Gastrointestional: No tender, No soft, No round, No distended, No pulsatile mass, No organomegaly, No guarding, No rebound, No tenderness, No hernia, No mass, No audible bowel sounds, No abnormal bowel sounds, No abdominal bruits, No spleenomegaly, No other Extremities: No normal range of motion, No non-tender, No normal inspection, No pedal edema, No calf tenderness, No normal capillary refill, No pelvis stable , No calf tenderness, No inflammation, No pedal edema, No slow capillary refill , No swelling, No other, No abrasion, No clubbing, No cyanosis, No ecchymosis, No laceration, No no lower extremity edema bilateral, No significant edema, No tenderness, No wound Neurologic/Psychiatric: alert, normal mood/affect, oriented x 3, motor weakness A/P: Assessment/Dx: Assessment/Admission Diagnosis Acute stroke, History of DVT, on regular Xarelto, History of hypertension Plan: Plan Acute stroke, on aspirin and Xarelto. CT head did not reveal any acute abnormality. MRI brain pending. CT angiography did not reveal any significant carotid disease. Echocardiogram with bubble study was negative which ruled out intracardiac shunting. Likely cryptogenic stroke. Plan implantable loop recorder for long-term surveillance of atrial fibrillation will be recommended. However the patient is already on daily Xarelto. The likelihood of atrial fibrillation causing the stroke on Xarelto is low. Hypertension: Continue current medical therapy. Thank you for your consultation. Please call me if you have any questions. Quin Otero MD, FACP, FACC, FSCAI, FHRS, CCDS Interventional Cardiology Cardiac Electrophysiology Vascular Medicine and Endovascular Interventions Sonia OTERO MD Mar 12, 2018 3:35 pm
[2018-03-12 16:12] VITALS: BP 111/73
--- NOTE | 2018-03-12 16:37 | ST Cognitive Linguistic Eval ---
Speech Evaluation-General Medical Diagnosis CVA Onset Date: Mar 10, 2018 Therapy Diagnosis Therapy Diagnosis: Cognition Precautions Precautions/Isolations: Fall Prevention, Standard Precautions Referral Referring Physician: Dr. Wells Reason for Referral: Evaluation/Treatment Medical History Pertinent Medical History: Alcoholism, CVA (retinal artery), GERD, HTN, Hypothroidism Current History CVA with fall and injury to the head. Reviewed History: Yes Social History Current Living Status: Alone Speech PLF-Current Status Prior Level of Function Independent Subjective Pt pleasant and cooperative. Pain Numeric Pain Scale: 0-No Pain Language Eval: Auditory Comprehends Simple Yes/No Ques: Functional Follows 1-Step Commands: Functional Follows Complex Directions: Functional Follows General Conversations: Functional Language Eval: Verbal Language Completes Spontaneous Greeting: Functional Produces Auto, Serial Info: Functional Word Finding: Functional Requests Basic Needs: Functional States Basic Personal Info: Functional Expresses Complex Ideas: Functional Language Evaluation: Reading NT Objective Cognitive Domain Attention: WNL Memory: WNL Problem Solving: Functional Objective Results [facility] Cognitive/Communication Assessment was administered to assess pt's cognitive-linguistic functioning. Results are: Orientation - pt oriented x 3 Memory - 3 word recall for immediate, delayed and remote delay was all 3/3 correct. Sequencing/organization - 4/4 correct Problem Solving - Simple 4/4 correct; Abstract/complex was 2/2 correct and Comparisons was 4/5 correct. Speech/language WNL Oral Motor/Speech Production WNL Impression Functional cognitive-linguistic skills Communication/Social Cognition Comprehension: 7 Expression: 7 Social Interaction: 7 Problem Solvin Memory: 7 Speech Patient Assess Expression of Ideas/Wants: Expression (4) Understanding Verbal Content: Understands (4) Brief Interview-Mental Status: Yes Repetition of Three Words: Three (3) Temporal Orientation: Year: Missed by 1 year (2) Temporal Orientation: Month: Accurate within 5 days(2) Temporal Orientation: Day: Correct (1) Recall : Wear to say "Sock": Yes, no cue required (2) Recall : Color: Yes, no cue required (2) Recall : Bed: Yes, no cue required (2) Speech-Plan Patient/Family Goals Patient/Family Goals: to return home Treatment Plan Speech Therapy Treatment Plan: Discontinue ST Skilled ST not indicated. Frequency: Modified Program (IRF) (0) Estimated Hrs Per Day: Other (0) Rehab Potential: Good Pt/Family Agrees to Plan: Yes Time Speech Therapy Time In: 15:30 Speech Therapy Time Out: 16:00 Total Billed Time: 30 Billed Treatment Time 1, PIPER MALDONADO Mar 12, 2018 16:37
[2018-03-12] MEDS: PANTOPRAZOLE 40 MG (PROTONIX) TAB PO SCH (17:12)
[2018-03-12] MEDS: CATHETER FLUSH 10 ML SYR IV SCH ×2 (17:12→20:37)
[2018-03-12] MEDS: MAGNESIUM OXIDE (MAG-OX)400 MG TAB PO SCH (17:14)
[2018-03-12] MEDS: ATORVASTATIN 80 MG (LIPITOR) TABLET PO SCH (20:37)
[2018-03-13 06:00] VITALS: BP 111/74
[2018-03-13] MEDS: PANTOPRAZOLE 40 MG (PROTONIX) TAB PO SCH ×2 (06:18→15:47)
[2018-03-13] MEDS: MAGNESIUM OXIDE (MAG-OX)400 MG TAB PO SCH (06:18)
[2018-03-13] MEDS: FOLIC ACID 1 MG TAB PO SCH (06:18)
[2018-03-13] MEDS: LEVOTHYROXINE 25 MCG (LEVOTHROID) TAB PO SCH (06:18)
[2018-03-13] MEDS: MULTIVIT W/MINERALS TAB (THERAGRAN M) PO SCH (06:18)
[2018-03-13] MEDS: CATHETER FLUSH 10 ML SYR IV SCH ×3 (06:18→23:11)
--- NOTE | 2018-03-13 08:44 | Occupational Ther Daily Note ---
OT Current Status-Daily Note Subjective Pt seen in room, up in recliner, agreeable to OT. No pain mentioned. Appearance Alert, cooperative Mental Status/Objective Functional [place] Measure 0=Not Assessed/NA 4=Minimal Assistance 1=Total Assistance 5=Supervision or Setup 2=Maximal Assistance 6=Modified [place] 3=Moderate Assistance 7=Complete [place] ADL-Treatment Pt needed to toilet. Got up from recliner with CGA and walked CGA, FWW to bathroom. Needed cues throughout all walking to keep walker closer and he verbalized several times to "stay in the box" of the walker (this is a safety concern). He was able to get on/off tall toilet with CGA, grab bar, FWW and stood with CGA to manage clothing. He also managed hygiene with SBA. No LOB while sitting on toilet. He reported that he had already brushed his teeth with setup in bed but did stop at sink to wash hands, CGA, FWW. At end of tx, he was left up in recliner with lunch on tray. He needed a cue to find his soup on the left side of his table. Functional [place] Measure 0=Not Assessed/NA 4=Minimal Assistance 1=Total Assistance 5=Supervision or Setup 2=Maximal Assistance 6=Modified [place] 3=Moderate Assistance 7=Complete IndependenceIRFPAI Quality Coding Scale 6 Independent with activity with or without an assistive device 5 Patient requires set up or clean up by helper. Patient completes activity by themselves 4 Supervision or touching assist (CGA). [place] provide cues , steadying assist 3 The helper provides less than half the effort to complete the activity 2 The helper provides more than half the effort to complete the activity 1 Dependent. The helper does all the effort to complete an activity 7 Patient refused to complete or attempt activity 9 The patient did not perform the activity before the current illness or injury 88 Not attempted due to Medical conditions or safety concerns Eating (FIM): 6 (Able to open packages but used teeth, extra time) Grooming (FIM): 4 (CGA at sink) Oral Hygiene (QC): 5 (setup) Toileting (FIM): 4 Toilet/Commode Transfer (FIM): 4 Other Treatment He walked to gym with CGA, FWW, cues for safety but did not require a rest break along the way. Standardized testing completed for UE strength and coordination: Pt had IV needle in dorsum of R hand which may have impacted performance Snow Remover: R 41, 44, 43# (average 43#) L 45, 45, 46# (average 45#) R L Lateral pinch 7 9 3 jaw anita pinch 5 6 Tip pinch 2 5 Box and Blocks gross motor coordination: R: 55 blocks L: 46 blocks (also missed getting three blocks over wall) 9 Hole Peg Test: (fine motor) R: 23.26 seconds L: 26.02 seconds and two pegs fell out Grooved peg: (fine motor) R: 1 minutes 20 seconds L: 1 minutes 44 seconds He had more difficulty with coordination tasks using L hand and especially with those requiring fine manipulation. Information shared and discussed with pt. Pt walked back to room with CGA, FWW and was left up in recliner, eating lunch, all needs met. Education OT Patient Education: Modified ADL techniques, Progress toward Goal/Update tx plan, Purpose of tx/functional activities, Safety issues, Transfer techniques Teaching Recipient: Patient Teaching Methods: Discussion Response to Teaching: Verbalize Understanding, Return Demonstration, Reinforcement Needed OT Short Term Goals Short Term Goals Time Frame: Mar 19, 2018 Grooming(FIM): 5 Bathing(FIM): 5 Upper Body Dressing(FIM): 5 Lower Body Dressing(FIM): 5 Toileting(FIM): 5 Toilet/Commode Transfer(FIM): 5 Shower Transfer(FIM): 5 Additional Short Term Goals: 1-Demonstrate ADL Tasks, 2-Verbalize Understanding , 3-ImproveStrength/Yeison 1=Demonstrate adherence to instructed precautions during ADL tasks. 2=Patient will verbalize/demonstrate understanding of assistive devices/ modifications for ADL. 3=Patient will improve strength/tolerance for activity to enable patient to perform ADL's. OT Space Planner Goals Space Planner Goals Time Frame: Apr 02, 2018 Eating (FIM): 7 Eating (QC): 6 Groomin Oral Hygiene (QC): 6 Bathing(FIM): 6 Shower/Bathe Self (QC): 6 Upper Body Dressing(FIM): 6 Upper Body Dressing (QC): 6 Lower Body Dressing(FIM): 6 Lower Body Dressing (QC): 6 On/Off Footwear (QC): 6 Toileting(FIM): 6 Toileting Hygiene (QC): 6 Toilet/Commode Transfer(FIM): 6 Toilet/Commode Transfer (QC): 6 Shower Transfer(FIM): 6 Additional Goals: 1-Demonstrate ADL Tasks, 2-Verbalize Understanding, 3- ImproveStrength/Yeison 1=Demonstrate adherence to instructed precautions during ADL tasks. 2=Patient will verbalize/demonstrate understanding of assistive devices/ modifications for ADL. 3=Patient will improve strength/tolerance for activity to enable patient to perform ADL's. OT Education/Plan Problem List/Assessment Pt would benefit from skilled OT to increase his independence in basic self care to allow him to safely return home after stroke with L sided weakness Discharge Recommendations Plan/Recommendations: Continue POC Treatment Plan/Plan of Care Patient would benefit from OT for education, treatment and training to promote independence in ADL's, mobility, safety and/or upper extremity function for ADL' s. Plan of Care: ADL Retraining, Functional Mobility, Group Exercise/Act as Ind ( education, exercise, functional activity, socialization, communication, energy conservation education), UE Funct Exercise/Act, UE Neuromus Re-Ed/Coord, Visual/ Perceptual Retrain (as needed) Treatment Duration: Apr 02, 2018 Frequency: At least 5 of 7 days/Wk (IRF) Estimated Hrs Per Day: 1.5 hours per day Agreement: Yes Rehab Potential: Good Time/GCodes Start Time: 11:00 Stop Time: 12:00 Total Time Billed (hr/min): 60 Billed Treatment Time visit, 15 minutes ADL, 15 minutes functional activity, 30 minutes neuromotor REMI STEVENSON OT Mar 13, 2018 08:44
[2018-03-13] MEDS: LOSARTAN 50 MG (COZAAR) TAB PO SCH (09:12)
[2018-03-13] MEDS: RIVAROXABAN 20 MG TABLET (XARELTO) PO SCH (09:12)
[2018-03-13] MEDS: ASPIRIN E.C. 325 MG (ECOTRIN) TABLET PO SCH (09:12)
--- NOTE | 2018-03-13 09:48 | PM&R Post Admission Assessment ---
Post Admission Physician Asses Date seen by provider: Mar 13, 2018 Time seen by provider: 08:10 The preadmission screen agrees with the post admission assessment that the patient is a good candidate for inpatient rehabilitation. The patient will have a comprehensive program of inpatient rehabilitation with a goal of maximizing level of functional independence prior to discharge home with Family/friend. The patient will have PT/OT ninety minutes per day, each discipline, five days a week for 10 day for gait, strengthening, conditioning, balance, ADLs, any patient/family/caregiver training as necessary. Speech therapy to do cognitive assessment and treat as indicated. Rehabilitation nursing to assist with bowel, bladder, skin, wound care, medication administration, pain management. Inspector Elevators to assist with discharge planning, community reentry. SCD's for DVT prophylaxis. He appears to be well motivated to participate in three hours of therapy a day. He should be able to tolerate three hours of therapy a day from a medical standpoint. He should benefit from the three hours of therapy a day. He has a reasonable discharge plan, reasonable discharge rehabilitation goals and a supportive family. He has various comorbidities that need to be closely monitored with medications and treatments adjusted on a daily basis as needed. 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 Risks for this patient include: 1. Fall 2. Fracture 3. DVT 4. Pulmonary embolism 5. Wound infection 6. Skin breakdown 7. Contractures 8. Poorly controlled pain 9. Urinary retention 10. UTI 11. Respiratory infection 12. Aspiration 13...Poorly controlled HTN 14. recurrent stroke Estimated Length of Stay: 10 to 14days Prognosis: Rehab prognosis appears good for goal of discharge home with family/ friends modified independent to supervision for ADLs and mobility skills. Date Identified: Mar 13, 2018 Time Identified: 08:10 Action Plan to Resolve CSMI: Transfer meds reviewed General: Alert, Oriented X3, Cooperative, No Acute Distress HEENT: Atraumatic, PERRLA, EOMI, Mucous Memb Moist/[place], Other (laceration scalp healing) Neck: Supple, No JVD Lungs: Clear to Auscultation Heart: Regular Rate Abdomen: Soft, No Tenderness Extremities: No Edema Neuro: Other (RT lower limb strength 5/5 Left Lower limb 2/5 except ankle 0/ 5Strength 4+/5 Both upper limbs) KATYA HINTON MD Mar 13, 2018 09:48
--- NOTE | 2018-03-13 10:58 | Physical Therapy Daily Note ---
PT Daily Note-Current Subjective Patient sitting EOB pre tx, agrees to PT, no complaints of pain. Appearance Patient in recliner post tx with nurse call, phone, tray, all needs met. Mental Status Patient Orientation: Normal For Age Transfers Functional Page Measure 0=Not Assessed/NA 4=Minimal Assistance 1=Total Assistance 5=Supervision or Setup 2=Maximal Assistance 6=Modified Page 3=Moderate Assistance 7=Complete IndependenceIRFPAI Quality Coding Scale 6 Independent with activity with or without an assistive device 5 Patient requires set up or clean up by helper. Patient completes activity by themselves 4 Supervision or touching assist (CGA). [place] provide cues , steadying assist 3 The helper provides less than half the effort to complete the activity 2 The helper provides more than half the effort to complete the activity 1 Dependent. The helper does all the effort to complete an activity 7 Patient refused to complete or attempt activity 9 The patient did not perform the activity before the current illness or injury 88 Not attempted due to Medical conditions or safety concerns Transfers (B, C, W/C) (FIM): 4 Sit to/from Stand: 4 Bed to/from Chair: 4 CGA, occasional cues for safety and positioning, Weight Bearing Right Lower Extremity: Right Full Weight Bearing Left Lower Extremity: Left Full Weight Bearing Gait Training Gait (FIM): 4 Distance: 150'x2 Gait Level of Assist: 4 Gait Persons Needed: 1 Gait Assistive Device: FWW CGA, slow ambulation with short steps, patient tries to keep left knee in extension so he can bear weight on it, occasional hyperextension Exercises Supine Ex: Bridging (2 sets), Quad Set, Glut sets, Heel Slides (AAROM), Straight leg raise (AAROM), Hip abd/add (AAROM) Supine Reps: 20 Seated Therapy Exercises: Long arc quads (AAROM) Seated Reps: 20 NuStep Minutes: 15 NuStep Workload: 5 Treatments transfers, ambulation, functional strengthening Assessment Current Status: Fair Progress improving ambulation, almost SBA PT Short Term Goals Short Term Goals Time Frame: Mar 19, 2018 Gait (FIM): 5 Gait Distance Comment: 200' Gait Level of Assist: 5 Gait Assistive Device: FWW PT Voy[employer] Management System Operator Goals Nursing Home Goals PT [employer] Management System Operator Goals Time Frame: Apr 02, 2018 Transfers (B,C,W/C) (FIM): 6 Sit to Lying (QC): 6 Lying-Sitting on Side/Bed(QC): 6 Sit to Stand (QC): 6 Rollin Roll Left to Right (QC): 6 Chair/Ent-oz-Ayjqi Xfer(QC): 6 Car Transfer (QC): 6 Gait (FIM): 6 Distance: 300' Walk 10 feet (QC): 6 Walk 10ft-Uneven Surface(QC): 6 Walk 50ft with 2 Turns (QC): 6 Walk 150 ft (QC): 6 Gait Level of Assist: 6 Gait Assistive Device: FWW Stairs (FIM): 2 # of Steps: 4 1 Step (curb) (QC): 4 4 Steps (QC): 4 Stairs Level Of Assist: 5 PT Plan Problem List Problem List: Activity Tolerance, Functional Strength, Safety, Balance, Gait, Transfer, Bed Mobility, ROM Treatment/Plan Treatment Plan: Continue Plan of Care Treatment Plan: Bed Mobility, Education, Functional Activity Yeison, Functional Strength, Group Therapy, Gait, Safety, Therapeutic Exercise, Transfers Treatment Duration: Apr 02, 2018 Frequency: At least 5 of 7 days/Wk (IRF) Estimated Hrs Per Day: 1.5 hours per day Patient and/or Family Agrees t: Yes Safety Risks/Education Patient Education: Gait Training, Transfer Techniques, Correct Positioning, Safety Issues Teaching Recipient: Patient Teaching Methods: Demonstration, Discussion Response to Teaching: Reinforcement Needed Time/GCodes Time In: 1000 Time Out: 1100 Total Billed Treatment Time: 60 Total Billed Treatment 1 visit GT 20' EX 40' MAHSA MCGHEE PT Mar 13, 2018 10:58
--- NOTE | 2018-03-13 12:03 | HISTORY AND PHYSICAL ---
DATE OF SERVICE: 03/13/2018 CHIEF COMPLAINT: Difficulty with walking. 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 He was admitted to [facility] to Dr. Holbrook service after the patient had evaluation. The patient had an MRI of the brain, which revealed an acute nonhemorrhagic infarct in the high right parafalcine location in the anterior cerebral artery distribution territory. The patient was seen by Dr. Quigley, medical oncology as he follows the patient for squamous cell carcinoma of the anus. The patient was seen by general surgery as well. He has a history of pulmonary embolism and has been maintained on Xarelto long-term. The patient had residual left-sided weakness and a decline in his functional independence. He had been independent prior to this and he was referred to inpatient rehabilitation unit with his medical insurance approval. Currently, he is min assist for transfers and gait with a front wheel walker. He is independent for eating, min assist for dressing, toileting hygiene and toilet transfers. PAST MEDICAL HISTORY: Prior stroke 2015, with peripheral vision loss residual, hypertension, hyperlipidemia, pulmonary embolism history maintained on Xarelto long-term, varicose vein procedure 08/10/2017, placed on aspirin daily, squamous cell carcinoma and anal cancer managed by Dr. Quigley. PAST SURGICAL HISTORY: As per above. ALLERGIES: NITRATE, AMLODIPINE, LISINOPRIL. FAMILY HISTORY: Noncontributory. SOCIAL HISTORY: He is single and lives in [place], [place]. REVIEW OF SYSTEMS: A 10-point review of systems significant for left leg weakness, falls. MEDICATIONS: ASA 325 mg p.o. daily, losartan 50 mg p.o. daily, Xarelto 20 mg p.o. daily, folic acid 1 mg p.o. daily, multivitamins with minerals one tablet p.o. daily, Synthroid 25 mcg p.o. daily, Lipitor 80 mg p.o. at bedtime, Protonix 40 mg p.o. b.i.d., Xanax 0.5 mg p.o. at bedtime p.r.n. anxiety, Senokot-S 2 tablets p.o. b.i.d. p.r.n. constipation. PHYSICAL EXAMINATION: GENERAL: Significant for a pleasant male appearing stated age, lying in bed, in no acute distress. VITAL SIGNS: He is afebrile, pulse 64, respirations 16, blood pressure 111/74, O2 sat 97% on room air. HEENT: Vision, speech, hearing is functional. No oral lesion is noted. NECK: Supple without mass. HEART: Regular rhythm. CHEST: Clear. ABDOMEN: Soft, nontender. Bowel sounds present. EXTREMITIES: No lower leg edema, no calf tenderness. MUSCULOSKELETAL: He has functional active range of motion in all 4 extremities. NEUROLOGIC: Cognitively grossly intact. Sensation intact to touch. Strength 4+/5 both upper limbs. Strength right lower limb 5/5, left lower limb 2/5 grossly except for dorsiflexion, plantar flexion 0/5. IMPRESSION: 1. Right cerebrovascular accident with left hemiparesis. 2. Prior stroke. 3. Hypertension, controlled with medication 4. Hyperlipidemia. 5. History of pulmonary embolism, maintained on Xarelto. 6. Squamous cell carcinoma of the anus remote managed by Dr. Quigley. 7. Laceration scalp, status post fall, repaired. 8. Status post implantation of loop recorder 03/12/2018, Dr. Otero. PLAN: The patient will have a comprehensive program of inpatient rehabilitation with goal of maximizing level of functional independence prior to discharge home with family/friends. The patient will have PT, OT 90 minutes per day each discipline 5 days a week for 2 weeks with the above goals in mind. Please see post-admission physician evaluation, which is a separate document for details of plan of care. Rehabilitation nursing to assist with bowel, bladder, skin care, wound care, medication administration, pain management. social services coordinator to assist with discharge planning, community reentry. Follow up with Dr. Holbrook and cardiology and Dr. Quigley as per their schedule. Speech therapy to do cognitive assessment and treat as indicated. ESTIMATED LENGTH OF STAY: Two weeks. PROGNOSIS: Rehab prognosis appears good for goal of discharging home with a friend/family modified independent to supervision for ADLs and mobility skills. DIET: Regular. CODE STATUS: Full code present. Job ID: [id number] DocumentID: [id number] Dictated Date: 03/13/2018 10:02:32 Electrical Fitter Date: 03/13/2018 12:03:27 Dictated By: KATYA HINTON MD [facility] CENTERVicky
--- NOTE | 2018-03-13 14:02 | Cardiology Progress Note ---
Cardiology SOAP Progress Note Subjective: No cardiac complaints Objective: I&O/Vital Signs 03/13/18 03/13/18 03/13/18 09:00 12:20 15:39 Temp 97.8 Pulse 80 Resp 16 B/P (MAP) 104/68 (80) Pulse Ox 94 O2 Delivery Room Air Room Air Room Air 03/13/18 00:00 Intake Total 540 ml Balance 540 ml Weight (Pounds): 164 Weight (Ounces): 0.0 Weight (Calculated Kilograms): 74.035331 Constitutional: No appears stated age, No AAO x 3, No apparent distress, No PERRL, No well-developed, No well-nourished, No other Respiratory: No accessory muscle use, No respiratory distress, No chest tender , No chest expansion is symmetric; chest is bilaterally symmetric; No lungs clear to percussion; lungs clear to auscultation; No crackles, No rhonchi, No rales, No stridor, No wheezing, No pleural rub, No other Cardiovascular: regular rate-rhythm; No irregularly irregular, No extra beats, No parasternal heave is noted, No JVD, No edema, No bradycardia, No tachycardia , No point of maximal impulse, No cardiac thrills are palpable; S1 and S2; No gallop/S3, No gallop/S4, No diastolic murmur, No systolic murmur, No friction rub, No click, No other Gastrointestional: No tender, No soft, No round, No distended, No pulsatile mass, No organomegaly, No guarding, No rebound, No tenderness, No hernia, No mass, No audible bowel sounds, No abnormal bowel sounds, No abdominal bruits, No spleenomegaly, No other Extremities: No normal range of motion, No non-tender, No normal inspection, No pedal edema, No calf tenderness, No normal capillary refill, No pelvis stable , No calf tenderness, No inflammation, No pedal edema, No slow capillary refill , No swelling, No other, No abrasion, No clubbing, No cyanosis, No ecchymosis, No laceration, No no lower extremity edema bilateral, No significant edema, No tenderness, No wound Neurologic/Psychiatric: alert, normal mood/affect, oriented x 3, motor weakness A/P: Assessment/Dx: Assessment/Admission Diagnosis Acute stroke, History of DVT, on regular Xarelto, History of hypertension Plan: Plan Acute stroke, on aspirin and Xarelto. CT head did not reveal any acute abnormality. MRI brain pending. CT angiography did not reveal any significant carotid disease. Echocardiogram with bubble study was negative which ruled out intracardiac shunting. Likely cryptogenic stroke. ILR done. However the patient is already on daily Xarelto. The likelihood of atrial fibrillation causing the stroke on Xarelto is low. Hypertension: Continue current medical therapy. Thank you for your consultation. Please call me if you have any questions. Quin Otero MD, FACP, FACC, FSCAI, FHRS, CCDS Interventional Cardiology Cardiac Electrophysiology Vascular Medicine and Endovascular Interventions Sonia OTERO MD Mar 13, 2018 2:02 pm
--- NOTE | 2018-03-13 14:24 | Therapy Group Daily Note ---
Therapy Daily Group Note Other/Notes Each patient participated in group therapy in the common area of rehab. Each patient sat in a chuloonawick and first had to introduce themselves, state where they were from and recall a specific memory to share with the group. Then, during group therapy each patient had to participate in seated UE and LE exercises and were educated on energy conservation, the benefits of exercise. Patients were encouraged to not only participate but to interact and participate with other group therapy patients. Afterwards, patient ambulated back to his room and needed to get on the toilet. Patient instructed to use nurse call when done. Start Time: 13:00 Stop Time: 14:10 Total Billed Treatment Time: 70 Total Billed Treatment 1 visit GRP 70' MAHSA MCGHEE PT Mar 13, 2018 14:24
[2018-03-13 15:39] VITALS: BP 104/68
[2018-03-13] MEDS: ATORVASTATIN 80 MG (LIPITOR) TABLET PO SCH (20:02)
[2018-03-13] MEDS: hydrOXYzine (VISTARIL) 25 MG CAP PO PRN (22:19)
[2018-03-14 05:19] VITALS: BP 129/77
[2018-03-14] MEDS: PANTOPRAZOLE 40 MG (PROTONIX) TAB PO SCH ×2 (06:20→16:20)
[2018-03-14] MEDS: FOLIC ACID 1 MG TAB PO SCH (06:20)
[2018-03-14] MEDS: LEVOTHYROXINE 25 MCG (LEVOTHROID) TAB PO SCH (06:20)
[2018-03-14] MEDS: MULTIVIT W/MINERALS TAB (THERAGRAN M) PO SCH (06:21)
[2018-03-14] MEDS: CATHETER FLUSH 10 ML SYR IV SCH ×3 (06:21→20:21)
--- NOTE | 2018-03-14 07:59 | PM & R (SOAP) Progress Note ---
Subjective This was a face to face visit with the patient. Date Seen by Provider: Mar 14, 2018 Time Seen by Provider: 07:35 Subjective/Events-last exam Patient was seen in his room this AM.Patient min assist for transfers Objective Physician Exam Last Set of Vital Signs Vital Signs Date Time Temp Pulse Resp B/P (MAP) Pulse Ox O2 Delivery O2 Flow Rate FiO2 03/14/18 05:19 97.8 61 18 129/77 (94) 97 Room Air Capillary Refill : I&O Intake and Output 03/14/18 00:00 Intake Total 550 ml Output Total 400 ml Balance 150 ml Intake Oral 550 ml Output Urine Total 400 ml # Voids 2 # Bowel Movements 3 General: Alert, Oriented X3, Cooperative, No Acute Distress HEENT: Atraumatic, PERRLA, EOMI, Mucous Memb Moist/[place], Other (laceration scalp healing) Neck: Supple, No JVD Lungs: Clear to Auscultation Heart: Regular Rate Abdomen: Soft, No Tenderness Extremities: No Edema Neuro: Other (RT lower limb strength 5/5 Left Lower limb 2/5 except ankle 0/ 5Strength 4+/5 Both upper limbs) Assessment/Plan Assessment and Plan Rt CVA with Left HP prior stroke HTN HLP HX of PE on Xaralto SCC of the anus treated by medonc laceration of scalp s/p fall repaired Plan Continue Pt/OT Team Conference next week Co-Morbidities that are continuing to impact the rehab process: (include details ) KATYA HINTON MD Mar 14, 2018 07:59
[2018-03-14] MEDS: ASPIRIN E.C. 325 MG (ECOTRIN) TABLET PO SCH (08:05)
[2018-03-14] MEDS: LOSARTAN 50 MG (COZAAR) TAB PO SCH (08:05)
[2018-03-14] MEDS: RIVAROXABAN 20 MG TABLET (XARELTO) PO SCH (08:05)
--- NOTE | 2018-03-14 11:53 | Physical Therapy Daily Note ---
PT Daily Note-Current Subjective Pt denies pain. Pt agreeable. Transfers Functional [place] Measure 0=Not Assessed/NA 4=Minimal Assistance 1=Total Assistance 5=Supervision or Setup 2=Maximal Assistance 6=Modified [place] 3=Moderate Assistance 7=Complete IndependenceIRFPAI Quality Coding Scale 6 Independent with activity with or without an assistive device 5 Patient requires set up or clean up by helper. Patient completes activity by themselves 4 Supervision or touching assist (CGA). [place] provide cues , steadying assist 3 The helper provides less than half the effort to complete the activity 2 The helper provides more than half the effort to complete the activity 1 Dependent. The helper does all the effort to complete an activity 7 Patient refused to complete or attempt activity 9 The patient did not perform the activity before the current illness or injury 88 Not attempted due to Medical conditions or safety concerns Weight Bearing Right Lower Extremity: Right Full Weight Bearing Left Lower Extremity: Left Full Weight Bearing Gait Training Gait Assistive Device: FWW Pt amb to and from gym with FWW and CGA. Pt amb 2 x 120ft with step to gait pattern. Exercises NuStep Minutes: 20 NuStep Workload: 4 Treatments Pt performed side stepping each way x 10ft, FWW and CGA. Performed sit to stand x 5 reps. Performed 3 way hip with (L) LE x 10 each. Attempted AROM (L) DF, hip ext against manual resistance without success at this time. Assessment Current Status: Good Progress Pt demonstrated good balance during ambulation and side stepping. Pt demonstrates good toe clearance during ambulation and good co-contraction of hip muscles during ambulation. Saloni above well. Pt back to bed with call light and all needs met post therapy session. PT Short Term Goals Short Term Goals Time Frame: Mar 19, 2018 Gait (FIM): 5 Gait Distance Comment: 200' Gait Level of Assist: 5 Gait Assistive Device: FWW PT Alf Goals Alf Goals PT [employer] Goals Time Frame: Apr 02, 2018 Transfers (B,C,W/C) (FIM): 6 Sit to Lying (QC): 6 Lying-Sitting on Side/Bed(QC): 6 Sit to Stand (QC): 6 Rollin Roll Left to Right (QC): 6 Chair/Ihk-cg-Fgert Xfer(QC): 6 Car Transfer (QC): 6 Gait (FIM): 6 Distance: 300' Walk 10 feet (QC): 6 Walk 10ft-Uneven Surface(QC): 6 Walk 50ft with 2 Turns (QC): 6 Walk 150 ft (QC): 6 Gait Level of Assist: 6 Gait Assistive Device: FWW Stairs (FIM): 2 # of Steps: 4 1 Step (curb) (QC): 4 4 Steps (QC): 4 Stairs Level Of Assist: 5 PT Plan Treatment/Plan Treatment Plan: Continue Plan of Care Treatment Plan: Bed Mobility, Education, Functional Activity Yeison, Functional Strength, Group Therapy, Gait, Safety, Therapeutic Exercise, Transfers Treatment Duration: Apr 02, 2018 Frequency: At least 5 of 7 days/Wk (IRF) Estimated Hrs Per Day: 1.5 hours per day Patient and/or Family Agrees t: Yes Time/GCodes Time In: 1030 Time Out: 1115 Total Billed Treatment Time: 45 Total Billed Treatment 1, gait x 30, ther ex 15 BETO MICHAELS CPTA Mar 14, 2018 11:53
--- NOTE | 2018-03-14 13:12 | Progress Note-Hospitalist ---
Subjective HPI/CC On Admission Date Seen by Provider: Mar 14, 2018 Time Seen by Provider: 12:30 Subjective/Events-last exam REVEAL device placed Pt has had no bleeding Left foot and leg about the same No pain is reported BM+ Review of Systems Neurological: Weakness (left leg), Incoordination Objective Exam Vital Signs Vital Signs Date Time Temp Pulse Resp B/P (MAP) Pulse Ox O2 Delivery O2 Flow Rate FiO2 03/14/18 08:27 Room Air 03/14/18 05:19 97.8 61 18 129/77 (94) 97 Capillary Refill : General Appearance: No Apparent Distress, WD/WN Respiratory: Chest Non Tender, Lungs Clear, Normal Breath Sounds, No Accessory Muscle Use, No Respiratory Distress Cardiovascular: Regular Rate, Rhythm, No Edema, No Gallop, No JVD, No Murmur, Normal Peripheral Pulses Neurologic/Psychiatric: Alert, Oriented x3, No Motor/Sensory Deficits, Normal Mood/Affect, Motor Weakness (left foot and lower leg) Results/Procedures Lab Patient resulted labs reviewed. Assessment/Plan Assessment and Plan Assess & Plan/Chief Complaint Assessment: Acute CVA while on ASA 325mg and Xarelto Left leg weakness residual HTN GERD SCC of rectum s/p treatment h/o PE 2016 Prior CVA 2016 Plan: REVEAL device placement TRF protocol Diagnosis/Problems Diagnosis/Problems (1) Cerebral infarction, unspecified Status: Acute Qualifiers: Cerebral infarction mechanism: unspecified mechanism Qualified Codes: I63.9 - Cerebral infarction, unspecified (2) Anal cancer Status: Chronic (3) Hypertension Status: Chronic Qualifiers: Hypertension type: essential hypertension Qualified Codes: I10 - Essential (primary) hypertension (4) GERD (gastroesophageal reflux disease) Status: Chronic Qualifiers: Esophagitis presence: without esophagitis Qualified Codes: K21.9 - Gastro- esophageal reflux disease without esophagitis (5) Anticoagulant long-term use Status: Chronic (6) Aspirin long-term use Status: Chronic (7) Lower extremity weakness Status: Acute (8) Hx pulmonary embolism Status: Chronic (9) Varicose veins of both lower extremities Status: Chronic (10) Hemianopia of left eye Status: Chronic Clinical Quality Measures DVT/VTE Risk/Contraindication: Risk Factor Score Per Nursin RFS Level Per Nursing on Admit: 4+=Very High MELA GRULLON DO Mar 14, 2018 13:12
--- NOTE | 2018-03-14 14:14 | Cardiology Progress Note ---
Cardiology SOAP Progress Note Subjective: No cardiac complaints. Objective: I&O/Vital Signs 03/14/18 03/14/18 05:19 08:27 Temp 97.8 Pulse 61 Resp 18 B/P (MAP) 129/77 (94) Pulse Ox 97 O2 Delivery Room Air Room Air 03/13/18 23:59 Intake Total 450 ml Output Total 200 ml Balance 250 ml Weight (Pounds): 164 Weight (Ounces): 0.0 Weight (Calculated Kilograms): 74.943535 Constitutional: No appears stated age, No AAO x 3, No apparent distress, No PERRL, No well-developed, No well-nourished, No other Respiratory: No accessory muscle use, No respiratory distress, No chest tender , No chest expansion is symmetric; chest is bilaterally symmetric; No lungs clear to percussion; lungs clear to auscultation; No crackles, No rhonchi, No rales, No stridor, No wheezing, No pleural rub, No other Cardiovascular: regular rate-rhythm; No irregularly irregular, No extra beats, No parasternal heave is noted, No JVD, No edema, No bradycardia, No tachycardia , No point of maximal impulse, No cardiac thrills are palpable; S1 and S2; No gallop/S3, No gallop/S4, No diastolic murmur, No systolic murmur, No friction rub, No click, No other Gastrointestional: No tender, No soft, No round, No distended, No pulsatile mass, No organomegaly, No guarding, No rebound, No tenderness, No hernia, No mass, No audible bowel sounds, No abnormal bowel sounds, No abdominal bruits, No spleenomegaly, No other Extremities: No normal range of motion, No non-tender, No normal inspection, No pedal edema, No calf tenderness, No normal capillary refill, No pelvis stable , No calf tenderness, No inflammation, No pedal edema, No slow capillary refill , No swelling, No other, No abrasion, No clubbing, No cyanosis, No ecchymosis, No laceration, No no lower extremity edema bilateral, No significant edema, No tenderness, No wound Neurologic/Psychiatric: alert, normal mood/affect, oriented x 3, motor weakness A/P: Assessment/Dx: Assessment/Admission Diagnosis Acute stroke, History of DVT, on regular Xarelto, History of hypertension Plan: Plan Acute stroke, on aspirin and Xarelto. CT head did not reveal any acute abnormality. MRI brain pending. CT angiography did not reveal any significant carotid disease. Echocardiogram with bubble study was negative which ruled out intracardiac shunting. Likely cryptogenic stroke. ILR done. However the patient is already on daily Xarelto. The likelihood of atrial fibrillation causing the stroke on Xarelto is low. Hypertension: Continue current medical therapy. Thank you for your consultation. Please call me if you have any questions. Quin Otero MD, FACP, FACC, FSCAI, FHRS, CCDS Interventional Cardiology Cardiac Electrophysiology Vascular Medicine and Endovascular Interventions Sonia OTERO MD Mar 14, 2018 2:14 pm
[2018-03-14 18:54] VITALS: BP 155/80
[2018-03-14] MEDS: ATORVASTATIN 80 MG (LIPITOR) TABLET PO SCH (20:21)
[2018-03-15 05:25] VITALS: BP 124/81
[2018-03-15] MEDS: PANTOPRAZOLE 40 MG (PROTONIX) TAB PO SCH ×2 (06:24→16:55)
[2018-03-15] MEDS: MULTIVIT W/MINERALS TAB (THERAGRAN M) PO SCH (06:24)
[2018-03-15] MEDS: LEVOTHYROXINE 25 MCG (LEVOTHROID) TAB PO SCH (06:24)
[2018-03-15] MEDS: FOLIC ACID 1 MG TAB PO SCH (06:24)
[2018-03-15] MEDS: CATHETER FLUSH 10 ML SYR IV SCH ×3 (06:25→20:56)
[2018-03-15] MEDS: LOSARTAN 50 MG (COZAAR) TAB PO SCH (08:28)
[2018-03-15] MEDS: ASPIRIN E.C. 325 MG (ECOTRIN) TABLET PO SCH (08:28)
[2018-03-15] MEDS: RIVAROXABAN 20 MG TABLET (XARELTO) PO SCH (08:28)
--- NOTE | 2018-03-15 12:36 | Cardiology Progress Note ---
Cardiology SOAP Progress Note Subjective: No cardiac complaints. Objective: I&O/Vital Signs 03/15/18 03/15/18 05:25 09:00 Temp 96.7 Pulse 64 Resp 18 B/P (MAP) 124/81 (95) Pulse Ox 97 O2 Delivery Room Air Room Air 03/15/18 00:00 Intake Total 770 ml Balance 770 ml Weight (Pounds): 164 Weight (Ounces): 0.0 Weight (Calculated Kilograms): 74.919988 Constitutional: No appears stated age, No AAO x 3, No apparent distress, No PERRL, No well-developed, No well-nourished, No other Respiratory: No accessory muscle use, No respiratory distress, No chest tender , No chest expansion is symmetric; chest is bilaterally symmetric; No lungs clear to percussion; lungs clear to auscultation; No crackles, No rhonchi, No rales, No stridor, No wheezing, No pleural rub, No other Cardiovascular: regular rate-rhythm; No irregularly irregular, No extra beats, No parasternal heave is noted, No JVD, No edema, No bradycardia, No tachycardia , No point of maximal impulse, No cardiac thrills are palpable; S1 and S2; No gallop/S3, No gallop/S4, No diastolic murmur, No systolic murmur, No friction rub, No click, No other Gastrointestional: No tender, No soft, No round, No distended, No pulsatile mass, No organomegaly, No guarding, No rebound, No tenderness, No hernia, No mass, No audible bowel sounds, No abnormal bowel sounds, No abdominal bruits, No spleenomegaly, No other Extremities: No normal range of motion, No non-tender, No normal inspection, No pedal edema, No calf tenderness, No normal capillary refill, No pelvis stable , No calf tenderness, No inflammation, No pedal edema, No slow capillary refill , No swelling, No other, No abrasion, No clubbing, No cyanosis, No ecchymosis, No laceration, No no lower extremity edema bilateral, No significant edema, No tenderness, No wound Neurologic/Psychiatric: alert, normal mood/affect, oriented x 3, motor weakness A/P: Assessment/Dx: Assessment/Admission Diagnosis Acute stroke, History of DVT, on regular Xarelto, History of hypertension Plan: Plan Acute stroke, on aspirin and Xarelto. CT head did not reveal any acute abnormality. CT angiography did not reveal any significant carotid disease. Echocardiogram with bubble study was negative which ruled out intracardiac shunting. Likely cryptogenic stroke. ILR done. However the patient is already on daily Xarelto. The likelihood of atrial fibrillation causing the stroke on Xarelto is low. Hypertension: Continue current medical therapy. Currently undergoing inpatient rehabilitation. Thank you for your consultation. Please call me if you have any questions. Quin Otero MD, FACP, FACC, FSCAI, FHRS, CCDS Interventional Cardiology Cardiac Electrophysiology Vascular Medicine and Endovascular Interventions Sonia OTERO MD Mar 15, 2018 12:36
[2018-03-15 17:35] VITALS: BP 114/75
[2018-03-15] MEDS: ATORVASTATIN 80 MG (LIPITOR) TABLET PO SCH (20:55)
[2018-03-15] MEDS: hydrOXYzine (VISTARIL) 25 MG CAP PO PRN (20:55)
[2018-03-16 05:36] VITALS: BP 112/72
[2018-03-16] MEDS: FOLIC ACID 1 MG TAB PO SCH (06:14)
[2018-03-16] MEDS: PANTOPRAZOLE 40 MG (PROTONIX) TAB PO SCH ×2 (06:15→16:01)
[2018-03-16] MEDS: LEVOTHYROXINE 25 MCG (LEVOTHROID) TAB PO SCH (06:15)
[2018-03-16] MEDS: MULTIVIT W/MINERALS TAB (THERAGRAN M) PO SCH (06:15)
[2018-03-16] MEDS: CATHETER FLUSH 10 ML SYR IV SCH ×3 (07:46→20:02)
[2018-03-16] MEDS: ASPIRIN E.C. 325 MG (ECOTRIN) TABLET PO SCH (07:46)
[2018-03-16] MEDS: LOSARTAN 50 MG (COZAAR) TAB PO SCH (07:46)
[2018-03-16] MEDS: RIVAROXABAN 20 MG TABLET (XARELTO) PO SCH (07:46)
--- NOTE | 2018-03-16 10:29 | Occupational Ther Daily Note ---
OT Current Status-Daily Note Subjective Pt awake and agreeable to therapy. Pt with no complaints of pain. Mental Status/Objective Functional [place] Measure 0=Not Assessed/NA 4=Minimal Assistance 1=Total Assistance 5=Supervision or Setup 2=Maximal Assistance 6=Modified [place] 3=Moderate Assistance 7=Complete [place] ADL-Treatment Functional [place] Measure 0=Not Assessed/NA 4=Minimal Assistance 1=Total Assistance 5=Supervision or Setup 2=Maximal Assistance 6=Modified [place] 3=Moderate Assistance 7=Complete IndependenceIRFPAI Quality Coding Scale 6 Independent with activity with or without an assistive device 5 Patient requires set up or clean up by helper. Patient completes activity by themselves 4 Supervision or touching assist (CGA). [place] provide cues , steadying assist 3 The helper provides less than half the effort to complete the activity 2 The helper provides more than half the effort to complete the activity 1 Dependent. The helper does all the effort to complete an activity 7 Patient refused to complete or attempt activity 9 The patient did not perform the activity before the current illness or injury 88 Not attempted due to Medical conditions or safety concerns Bathing (FIM): 4 Upper Body (FIM): 5 Lower Body Dressing (FIM): 4 (Pt completed LBD with CGA while standing to manage pants over hips.) Toileting (FIM): 4 (CGA for clothing management.) Toilet/Commode Transfer (FIM): 4 (CGA for transfer.) Other Treatment Pt participated in BUE ther ex with use of 3# free weights through gross planes of motion with focus on improving UE strength and gross motor coordination required for ADLs and IADLs. Education OT Patient Education: Energy conservation, Modified ADL techniques, Purpose of tx/functional activities Teaching Recipient: Patient OT Short Term Goals Short Term Goals Time Frame: Mar 19, 2018 Grooming(FIM): 5 Bathing(FIM): 5 Upper Body Dressing(FIM): 5 Lower Body Dressing(FIM): 5 Toileting(FIM): 5 Toilet/Commode Transfer(FIM): 5 Shower Transfer(FIM): 5 Additional Short Term Goals: 1-Demonstrate ADL Tasks, 2-Verbalize Understanding , 3-ImproveStrength/Yeison 1=Demonstrate adherence to instructed precautions during ADL tasks. 2=Patient will verbalize/demonstrate understanding of assistive devices/ modifications for ADL. 3=Patient will improve strength/tolerance for activity to enable patient to perform ADL's. OT Long-Term Goals Horticulture Instructor Goals Time Frame: Apr 02, 2018 Eating (FIM): 7 Eating (QC): 6 Groomin Oral Hygiene (QC): 6 Bathing(FIM): 6 Shower/Bathe Self (QC): 6 Upper Body Dressing(FIM): 6 Upper Body Dressing (QC): 6 Lower Body Dressing(FIM): 6 Lower Body Dressing (QC): 6 On/Off Footwear (QC): 6 Toileting(FIM): 6 Toileting Hygiene (QC): 6 Toilet/Commode Transfer(FIM): 6 Toilet/Commode Transfer (QC): 6 Shower Transfer(FIM): 6 Additional Goals: 1-Demonstrate ADL Tasks, 2-Verbalize Understanding, 3- ImproveStrength/Yeison 1=Demonstrate adherence to instructed precautions during ADL tasks. 2=Patient will verbalize/demonstrate understanding of assistive devices/ modifications for ADL. 3=Patient will improve strength/tolerance for activity to enable patient to perform ADL's. OT Education/Plan Problem List/Assessment Pt would benefit from skilled OT to increase his independence in basic self care to allow him to safely return home after stroke with L sided weakness Discharge Recommendations Plan/Recommendations: Continue POC Treatment Plan/Plan of Care Patient would benefit from OT for education, treatment and training to promote independence in ADL's, mobility, safety and/or upper extremity function for ADL' s. Plan of Care: ADL Retraining, Functional Mobility, Group Exercise/Act as Ind ( education, exercise, functional activity, socialization, communication, energy conservation education), UE Funct Exercise/Act, UE Neuromus Re-Ed/Coord, Visual/ Perceptual Retrain (as needed) Treatment Duration: Apr 02, 2018 Frequency: At least 5 of 7 days/Wk (IRF) Estimated Hrs Per Day: 1.5 hours per day Agreement: Yes Rehab Potential: Good Time/GCodes Start Time: 08:00 Stop Time: 09:00 Total Time Billed (hr/min): 60 Billed Treatment Time ADL3, TE1 NEW FELDMAN OT Mar 16, 2018 10:29
--- NOTE | 2018-03-16 10:55 | Physical Therapy Daily Note ---
PT Daily Note-Current Subjective Patient in bed pre tx, agrees to PT, no complaints of pain. Patient needs to put his shoes on and does so without assist. Appearance Patient sitting EOB post tx talking to doctor, has nurse call, phone, tray, all needs met. Mental Status Patient Orientation: Normal For Age Transfers Functional [place] Measure 0=Not Assessed/NA 4=Minimal Assistance 1=Total Assistance 5=Supervision or Setup 2=Maximal Assistance 6=Modified [place] 3=Moderate Assistance 7=Complete IndependenceIRFPAI Quality Coding Scale 6 Independent with activity with or without an assistive device 5 Patient requires set up or clean up by helper. Patient completes activity by themselves 4 Supervision or touching assist (CGA). [place] provide cues , steadying assist 3 The helper provides less than half the effort to complete the activity 2 The helper provides more than half the effort to complete the activity 1 Dependent. The helper does all the effort to complete an activity 7 Patient refused to complete or attempt activity 9 The patient did not perform the activity before the current illness or injury 88 Not attempted due to Medical conditions or safety concerns Transfers (B, C, W/C) (FIM): 6 Scootin Rollin Supine to/from Sit: 6 Sit to/from Stand: 6 Bed to/from Chair: 6 Patient steady during sit to stand and stand pivot transfers, no LOB. Weight Bearing Right Lower Extremity: Right Full Weight Bearing Left Lower Extremity: Left Full Weight Bearing Gait Training Gait (FIM): 6 Distance: 200', 150' Gait Assistive Device: FWW Patient can ambulate 200' with a rolling walker with mod I, he also ambulated 200' with a quad cane with SBA, and 200' with a single point cane with CGA. Patient did have some unsteadiness with both the quad cane and single point cane. Stair Training Stair Training: Handrails/: 2 handrails Stairs (FIM): 5 #of Steps: 12 Stairs: Pattern: Step to Level of Assist: 5 Patient went up and down 12 steps using 2 handrails with SBA, needs cues for foot placement. Exercises Supine Ex: Bridging (3 sets of 20), Quad Set, Glut sets, Heel Slides, Short Arc Quads, Straight leg raise, Hip abd/add Supine Reps: 20 Seated Therapy Exercises: Long arc quads (right side for 5 min) Standing: Sit to Stand (3 sets of 10) side stepping using the quad cane with CGA 50' NuStep Minutes: 15 NuStep Workload: 5 Treatments bed mobility and transfers, ambulation, functional strengthening, patient was also toileted once (did not need assist with pants) Assessment Current Status: Fair Progress improving balance and strength in right leg PT Short Term Goals Short Term Goals Time Frame: Mar 19, 2018 Gait (FIM): 5 Gait Distance Comment: 200' Gait Level of Assist: 5 Gait Assistive Device: FWW PT Shelter Goals Director Of Admissions Goals PT Director Of Admissions Goals Time Frame: Apr 02, 2018 Transfers (B,C,W/C) (FIM): 6 Sit to Lying (QC): 6 Lying-Sitting on Side/Bed(QC): 6 Sit to Stand (QC): 6 Rollin Roll Left to Right (QC): 6 Chair/Lmh-fm-Envdc Xfer(QC): 6 Car Transfer (QC): 6 Gait (FIM): 6 Distance: 300' Walk 10 feet (QC): 6 Walk 10ft-Uneven Surface(QC): 6 Walk 50ft with 2 Turns (QC): 6 Walk 150 ft (QC): 6 Gait Level of Assist: 6 Gait Assistive Device: FWW Stairs (FIM): 2 # of Steps: 4 1 Step (curb) (QC): 4 4 Steps (QC): 4 Stairs Level Of Assist: 5 PT Plan Problem List Problem List: Activity Tolerance, Functional Strength, Safety, Balance, Gait, Transfer, Bed Mobility, ROM Treatment/Plan Treatment Plan: Continue Plan of Care Treatment Plan: Bed Mobility, Education, Functional Activity Yeison, Functional Strength, Group Therapy, Gait, Safety, Therapeutic Exercise, Transfers Treatment Duration: Apr 02, 2018 Frequency: At least 5 of 7 days/Wk (IRF) Estimated Hrs Per Day: 1.5 hours per day Patient and/or Family Agrees t: Yes Safety Risks/Education Patient Education: Gait Training, Transfer Techniques, Steps, Correct Positioning, Safety Issues Teaching Recipient: Patient Teaching Methods: Demonstration, Discussion Response to Teaching: Reinforcement Needed Time/GCodes Time In: 0930 Time Out: 1100 Total Billed Treatment Time: 90 Total Billed Treatment 1 visit GT 30' FA 30' EX 30' MAHSA MCGHEE PT Mar 16, 2018 10:55
--- NOTE | 2018-03-16 11:41 | Cardiology Progress Note ---
Cardiology SOAP Progress Note Subjective: No cardiac symptoms. Objective: I&O/Vital Signs 03/16/18 03/16/18 05:36 09:00 Temp 97.9 Pulse 66 Resp 14 B/P (MAP) 112/72 (85) Pulse Ox 97 O2 Delivery Room Air Room Air 03/16/18 00:00 Intake Total 900 ml Output Total 300 ml Balance 600 ml Weight (Pounds): 164 Weight (Ounces): 0.0 Weight (Calculated Kilograms): 74.657053 Constitutional: No appears stated age, No AAO x 3, No apparent distress, No PERRL, No well-developed, No well-nourished, No other Respiratory: No accessory muscle use, No respiratory distress, No chest tender , No chest expansion is symmetric; chest is bilaterally symmetric; No lungs clear to percussion; lungs clear to auscultation; No crackles, No rhonchi, No rales, No stridor, No wheezing, No pleural rub, No other Cardiovascular: regular rate-rhythm; No irregularly irregular, No extra beats, No parasternal heave is noted, No JVD, No edema, No bradycardia, No tachycardia , No point of maximal impulse, No cardiac thrills are palpable; S1 and S2; No gallop/S3, No gallop/S4, No diastolic murmur, No systolic murmur, No friction rub, No click, No other Gastrointestional: No tender, No soft, No round, No distended, No pulsatile mass, No organomegaly, No guarding, No rebound, No tenderness, No hernia, No mass, No audible bowel sounds, No abnormal bowel sounds, No abdominal bruits, No spleenomegaly, No other Extremities: No normal range of motion, No non-tender, No normal inspection, No pedal edema, No calf tenderness, No normal capillary refill, No pelvis stable , No calf tenderness, No inflammation, No pedal edema, No slow capillary refill , No swelling, No other, No abrasion, No clubbing, No cyanosis, No ecchymosis, No laceration, No no lower extremity edema bilateral, No significant edema, No tenderness, No wound Neurologic/Psychiatric: alert, normal mood/affect, oriented x 3, motor weakness A/P: Assessment/Dx: Assessment/Admission Diagnosis Acute stroke, History of DVT, on regular Xarelto, History of hypertension Plan: Plan Acute stroke, on aspirin and Xarelto. CT head did not reveal any acute abnormality. CT angiography did not reveal any significant carotid disease. Echocardiogram with bubble study was negative which ruled out intracardiac shunting. Likely cryptogenic stroke. ILR done. No atrial fibrillation on telemetry for now. However the patient is already on daily Xarelto. The likelihood of atrial fibrillation causing the stroke on Xarelto is low. Hypertension: Continue current medical therapy. Currently undergoing inpatient rehabilitation. Thank you for your consultation. Please call me if you have any questions. Quin Otero MD, FACP, FACC, FSCAI, FHRS, CCDS Interventional Cardiology Cardiac Electrophysiology Vascular Medicine and Endovascular Interventions Sonia OTERO MD Mar 16, 2018 11:41 am
--- NOTE | 2018-03-16 11:42 | Occupational Ther Daily Note ---
OT Current Status-Daily Note Subjective Pt alert and willing to work with OT for second part of OT session this date. Pt reports no pain. Mental Status/Objective Functional [place] Measure 0=Not Assessed/NA 4=Minimal Assistance 1=Total Assistance 5=Supervision or Setup 2=Maximal Assistance 6=Modified [place] 3=Moderate Assistance 7=Complete [place] ADL-Treatment Functional [place] Measure 0=Not Assessed/NA 4=Minimal Assistance 1=Total Assistance 5=Supervision or Setup 2=Maximal Assistance 6=Modified [place] 3=Moderate Assistance 7=Complete IndependenceIRFPAI Quality Coding Scale 6 Independent with activity with or without an assistive device 5 Patient requires set up or clean up by helper. Patient completes activity by themselves 4 Supervision or touching assist (CGA). [place] provide cues , steadying assist 3 The helper provides less than half the effort to complete the activity 2 The helper provides more than half the effort to complete the activity 1 Dependent. The helper does all the effort to complete an activity 7 Patient refused to complete or attempt activity 9 The patient did not perform the activity before the current illness or injury 88 Not attempted due to Medical conditions or safety concerns Other Treatment Pt participated in functional mobility and ambulation with FWW and gait belt, with CGA for safety in order to improve his dynamic standing balance and functional activity tolerance required for ADLs and IADLs. Pt participated in BUE ther ex with use of red theraband through gross planes of motion, 1x20 reps. UE ther ex completed to improve his UE strength and muscle endurance necessary for self cares and IADLs. OT Short Term Goals Short Term Goals Time Frame: Mar 19, 2018 Grooming(FIM): 5 Bathing(FIM): 5 Upper Body Dressing(FIM): 5 Lower Body Dressing(FIM): 5 Toileting(FIM): 5 Toilet/Commode Transfer(FIM): 5 Shower Transfer(FIM): 5 Additional Short Term Goals: 1-Demonstrate ADL Tasks, 2-Verbalize Understanding , 3-ImproveStrength/Yeison 1=Demonstrate adherence to instructed precautions during ADL tasks. 2=Patient will verbalize/demonstrate understanding of assistive devices/ modifications for ADL. 3=Patient will improve strength/tolerance for activity to enable patient to perform ADL's. OT Penitentiary Goals Penitentiary Goals Time Frame: Apr 02, 2018 Eating (FIM): 7 Eating (QC): 6 Groomin Oral Hygiene (QC): 6 Bathing(FIM): 6 Shower/Bathe Self (QC): 6 Upper Body Dressing(FIM): 6 Upper Body Dressing (QC): 6 Lower Body Dressing(FIM): 6 Lower Body Dressing (QC): 6 On/Off Footwear (QC): 6 Toileting(FIM): 6 Toileting Hygiene (QC): 6 Toilet/Commode Transfer(FIM): 6 Toilet/Commode Transfer (QC): 6 Shower Transfer(FIM): 6 Additional Goals: 1-Demonstrate ADL Tasks, 2-Verbalize Understanding, 3- ImproveStrength/Yeison 1=Demonstrate adherence to instructed precautions during ADL tasks. 2=Patient will verbalize/demonstrate understanding of assistive devices/ modifications for ADL. 3=Patient will improve strength/tolerance for activity to enable patient to perform ADL's. OT Education/Plan Problem List/Assessment Pt would benefit from skilled OT to increase his independence in basic self care to allow him to safely return home after stroke with L sided weakness Discharge Recommendations Plan/Recommendations: Continue POC Treatment Plan/Plan of Care Patient would benefit from OT for education, treatment and training to promote independence in ADL's, mobility, safety and/or upper extremity function for ADL' s. Plan of Care: ADL Retraining, Functional Mobility, Group Exercise/Act as Ind ( education, exercise, functional activity, socialization, communication, energy conservation education), UE Funct Exercise/Act, UE Neuromus Re-Ed/Coord, Visual/ Perceptual Retrain (as needed) Treatment Duration: Apr 02, 2018 Frequency: At least 5 of 7 days/Wk (IRF) Estimated Hrs Per Day: 1.5 hours per day Agreement: Yes Rehab Potential: Good Time/GCodes Start Time: 11:10 Stop Time: 11:40 Total Time Billed (hr/min): 30 Billed Treatment Time TE1, FA1 NEW FELDMAN OT Mar 16, 2018 11:42
[2018-03-16 18:45] VITALS: BP 121/75
--- NOTE | 2018-03-16 19:51 | Individualized Plan of Care ---
Individualized Plan of Care Rehab Nursing IPOC Order Admission Date Mar 12, 2018 at 11:25 Current Orders Orders Admission-Acute Rehab Unit (03/12/18 10:45) Pt Evaluate/Treat Request (03/12/18 10:45) Request Ot Evaluate & Treat (03/12/18 10:45) Request For Cognitive Services (03/12/18 10:45) Code/Resuscitation (03/12/18 11:35) Alcohol Cgouevtgah-Swex-Bq Go (03/12/18 11:35) Incentive Spirometry (Nursing) Q2H (03/12/18 11:35) Intake & Output ,18 (03/12/18 11:35) Sequential Compression Device 08,20 (03/12/18 11:35) General/Regular (03/12/18 Lunch) Alprazolam Tablet (Xanax Tablet) (03/12/18 11:45) Aspirin Enteric Coated Tablet (Ecotrin T (03/13/18 09:00) Lorazepam Tablet (Ativan Tablet) (03/12/18 11:45) Atorvastatin Tablet (Lipitor Tablet) (03/12/18 21:00) Bisacodyl Suppository (Dulcolax Supposit (03/12/18 11:45) Calcium Carbonate Chew Tablet (Antacid C (03/12/18 11:45) Folic Acid Tablet (Folic Acid Tablet) (03/13/18 07:00) Lorazepam Injection (Ativan Injection) (03/12/18 11:45) Levothyroxine Tablet (Synthroid Tablet) (03/13/18 06:30) Losartan Tablet (Cozaar Tablet) (03/13/18 09:00) Antacid Suspension (Mylanta Suspension (03/12/18 11:45) Magnesium Hydroxide Oral Susp (Mom Oral (03/12/18 11:45) Magnesium Oxide Tablet (Mag Ox Tablet) (03/12/18 17:00) Ondansetron Injection (Zofran Injectio (03/12/18 11:45) Ondansetron Oral Dissolve Tab (Zofran (03/12/18 11:45) Pantoprazole Tablet (Protonix Tablet) (03/12/18 16:00) Rivaroxaban Tablet (Xarelto Tablet) (03/13/18 09:00) Senna S Tablet (Senokot S Tablet) (03/12/18 11:45) Sodium Chloride Flush (Catheter Flush Sy (03/12/18 11:45) Therapeutic Multivitamin Tab (Vitamins, (03/13/18 07:00) Hydroxyzine Oral (Vistaril Capsule) (03/12/18 11:45) Rt Request For Service (03/12/18 11:35) Senior Accountant Cpa Consult (03/12/18 11:35) Consult Cardiology (03/12/18 11:51) Consult Physician (03/12/18 11:51) Consult Hospitalist (03/12/18 11:51) Isolation Central Supply Req (03/12/18 11:51) Weight Bearing Status (03/12/18 12:22) Vital Signs: Special (Order) 18 (03/12/18 12:22) Patient Visit (03/12/18 ) Pt Eval Moderate Complexity (03/12/18 ) Sodium Chloride Flush (Catheter Flush Sy (03/12/18 14:00) Lidocaine 1% Inj 20 Ml (Xylocaine 1% Inj (03/12/18 14:38) Patient Visit (03/12/18 ) Therapeutic, Group (03/12/18 ) Ambulate 08,12,20 (03/12/18 17:32) Sequential Compression Device 08,20 (03/12/18 17:32) Dvt/Vte Risk - Notifiy Physici 08 (03/12/18 17:32) Patient Visit (03/12/18 ) Speech Sound Lang Comp (03/12/18 ) Patient Visit (03/13/18 ) Patient Visit (03/13/18 ) Exercise Therap, Ea 15 Min (03/13/18 ) Gait Training, Ea 15 Min (03/13/18 ) Therapeutic, Group (03/13/18 ) Patient Visit (03/14/18 ) Gait Training, Ea 15 Min (03/14/18 ) Exercise Therap, Ea 15 Min (03/14/18 ) Patient Visit (03/16/18 ) Exercise Therap, Ea 15 Min (03/16/18 ) Functional Activities, Ea 15 (03/16/18 ) Gait Training, Ea 15 Min (03/16/18 ) Rehab Nursing Orders: Ongoing Assess. of Function Status, Disease Management & Educaiton, DVT Prophylaxis, Fall Prevention, Fluid/Electrolyte/Nutrition Mgmt, Infection Prevention, Medication Management & Education, Management of Risks & Complications, Management of Skin Intergrity, Nutrition Management, Patient/ Family Support PT IPOC Problem List: Activity Tolerance, Functional Strength, Safety, Balance, Gait, Transfer, Bed Mobility, ROM Treatment Plan: Continue Plan of Care Bed Mobility, Education, Functional Activity Yeison, Functional Strength, Group Therapy, Gait, Safety, Therapeutic Exercise, Transfers Treatment Duration: Apr 02, 2018 Frequency: At least 5 of 7 days/Wk (IRF) Estimated Hrs Per Day: 1.5 hours per day OT IPOC Problems: Decreased Activ Tolerance, Decreased Safety Aware, Decreased UE Strength, Dependent Transfers, Impaired Bed Mobility, Impaired Funct Balance, Impaired Self-Care Skills OT Treatment, Training and Edu: Yes OT Problems Pt would benefit from skilled OT to increase his independence in basic self care to allow him to safely return home after stroke with L sided weakness Plan of Care: ADL Retraining, Functional Mobility, Group Exercise/Act as Ind ( education, exercise, functional activity, socialization, communication, energy conservation education), UE Funct Exercise/Act, UE Neuromus Re-Ed/Coord, Visual/ Perceptual Retrain (as needed) Treatment Duration: Apr 02, 2018 Frequency: At least 5 of 7 days/Wk (IRF) Estimated Hrs Per Day: 1.[address] IPOC Speech Therapy Treatment Plan: Discontinue ST Treatment Duration: Mar 16, 2018 Frequency: Modified Program (IRF) (0) Estimated Hrs Per Day: Other (0) Senior Accountant Cpa/Case Mgmt Senior Accountant Cpa/Case Managemen: Discharge Planning, Patient/Family Counseling Dietitian/Biomedical Electronics Technician Dietitian/Biomedical Electronics Technician to monitor nutritional status and make changes and/or recommendations as needed and work with speech pathology on dietary upgrades as the occur. 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 Medical Issues: DVT Prophylaxis, Falls Precautions, Fluid/Electrolyte/ Nutrition Balance, Infection Protection, Other (List) (as per above) Brief Synthesis of Preadmission Screen, Post-Admission Evaluation, and Therapy Evaluations: 62 yo male who had been Independent who suffered a RT CVA with left HP and a decline in Functional [place] Referred to IRU for stroke rehab.PMH PE on xaralto Prior stroke HTN ANAL CA Medical Prognosis: Good Anticipated Length of Stay: 04-02-18 Modified [place] for adls and mobility skills Anticipated d/c Destination: Home with [facility] KATYA HINTON MD Mar 16, 2018 19:51
[2018-03-16] MEDS: ATORVASTATIN 80 MG (LIPITOR) TABLET PO SCH (20:04)
--- NOTE | 2018-03-16 20:33 | PM & R (SOAP) Progress Note ---
Subjective This was a face to face visit with the patient. Date Seen by Provider: Mar 16, 2018 Time Seen by Provider: 20:20 Subjective/Events-last exam Patient was seen in his room this Evening Patient MOdified Independent to supervision for transfers with walker hopes to go home on 03-19-18 with friends Objective Physician Exam Last Set of Vital Signs Vital Signs Date Time Temp Pulse Resp B/P (MAP) Pulse Ox O2 Delivery O2 Flow Rate FiO2 03/16/18 18:45 97.8 64 16 121/75 (90) 97 Room Air Capillary Refill : I&O Intake and Output 03/16/18 00:00 Intake Total 1260 ml Output Total 300 ml Balance 960 ml Intake Oral 1260 ml Output Urine Total 300 ml # Voids 8 # Bowel Movements 5 General: Alert, Oriented X3, Cooperative, No Acute Distress HEENT: Atraumatic, PERRLA, EOMI, Mucous Memb Moist/[place], Other (laceration scalp healing) Neck: Supple, No JVD Lungs: Clear to Auscultation Heart: Regular Rate Abdomen: Soft, No Tenderness Extremities: No Edema Neuro: Other (RT lower limb strength 5/5 Left Lower limb 2/5 except ankle 0/ 5Strength 4+/5 Both upper limbs) Assessment/Plan Assessment and Plan RT CVA with left HP with good return Upper more then Lower Limb Prior stroke HTN HLP HX of PE on Xaralto SCC of the anus followed by [place] Laceration scalp s/p fall repaired S/P implantation loop recorder 03-12-18 DR Otero Plan Continue PT/OT Team Conference 04-18-18 F/U with SW /Team re discharge plans Co-Morbidities that are continuing to impact the rehab process: (include details ) KATYA HINTON MD Mar 16, 2018 20:33
[2018-03-16] MEDS: hydrOXYzine (VISTARIL) 25 MG CAP PO PRN (22:44)
[2018-03-17 05:07] VITALS: BP 126/82
[2018-03-17] MEDS: CATHETER FLUSH 10 ML SYR IV SCH (05:34)
[2018-03-17] MEDS: LEVOTHYROXINE 25 MCG (LEVOTHROID) TAB PO SCH (06:20)
[2018-03-17] MEDS: FOLIC ACID 1 MG TAB PO SCH (06:20)
[2018-03-17] MEDS: PANTOPRAZOLE 40 MG (PROTONIX) TAB PO SCH ×2 (06:20→16:00)
[2018-03-17] MEDS: MULTIVIT W/MINERALS TAB (THERAGRAN M) PO SCH (06:21)
[2018-03-17] MEDS: ASPIRIN E.C. 325 MG (ECOTRIN) TABLET PO SCH (07:52)
[2018-03-17] MEDS: LOSARTAN 50 MG (COZAAR) TAB PO SCH (07:52)
[2018-03-17] MEDS: RIVAROXABAN 20 MG TABLET (XARELTO) PO SCH (07:52)
--- NOTE | 2018-03-17 08:59 | Occupational Ther Daily Note ---
OT Current Status-Daily Note Subjective Pt in bed, agrees to treatment. Pt has no c/o pain. Mental Status/Objective Functional [place] Measure 0=Not Assessed/NA 4=Minimal Assistance 1=Total Assistance 5=Supervision or Setup 2=Maximal Assistance 6=Modified [place] 3=Moderate Assistance 7=Complete [place] ADL-Treatment Pt supine to sit with modified independence. Dons sock without assist. Gait to restroom with FWW, no LOB noted. Pt declined bathing or changing clothes, but would like to complete grooming. Pt brushed teeth, washed face, and combed hair with modified independence while standing at sink. Pt transferred to toilet with SBA and completed toileting tasks with SBA. Stood at sink to wash hands without assistance. Functional [place] Measure 0=Not Assessed/NA 4=Minimal Assistance 1=Total Assistance 5=Supervision or Setup 2=Maximal Assistance 6=Modified [place] 3=Moderate Assistance 7=Complete IndependenceIRFPAI Quality Coding Scale 6 Independent with activity with or without an assistive device 5 Patient requires set up or clean up by helper. Patient completes activity by themselves 4 Supervision or touching assist (CGA). [place] provide cues , steadying assist 3 The helper provides less than half the effort to complete the activity 2 The helper provides more than half the effort to complete the activity 1 Dependent. The helper does all the effort to complete an activity 7 Patient refused to complete or attempt activity 9 The patient did not perform the activity before the current illness or injury 88 Not attempted due to Medical conditions or safety concerns Grooming (FIM): 6 Oral Hygiene (QC): 6 Toileting (FIM): 5 Toileting Hygiene (QC): 5 Other Treatment Gait to therapy gym with FWW. Arm bike x10 minutes to increase overall strength and activity tolerance needed for functional tasks. Pt completed activity with moderate resistance and steady pace. No rest breaks needed. Pt completed grooved pegboard activity with left hand to increase fine motor coordination. Pt able to complete task within reasonable amount of time. Pt completed putty activity with left hand to increase strength and manipulation skills. Pt able to remove small beads from moderate resistance putty without assistance. Pt completed bilateral UE exercises to increase strength needed for ADLs and transfers. Pt performed three exercises x20 reps with 3# weights. Rest breaks between exercises. Pt returned to room, sitting EOB with needs met after session. OT Short Term Goals Short Term Goals Time Frame: Mar 19, 2018 Grooming(FIM): 5 Bathing(FIM): 5 Upper Body Dressing(FIM): 5 Lower Body Dressing(FIM): 5 Toileting(FIM): 5 Toilet/Commode Transfer(FIM): 5 Shower Transfer(FIM): 5 Additional Short Term Goals: 1-Demonstrate ADL Tasks, 2-Verbalize Understanding , 3-ImproveStrength/Yeison 1=Demonstrate adherence to instructed precautions during ADL tasks. 2=Patient will verbalize/demonstrate understanding of assistive devices/ modifications for ADL. 3=Patient will improve strength/tolerance for activity to enable patient to perform ADL's. OT Longterm Goals Longterm Goals Time Frame: Apr 02, 2018 Eating (FIM): 7 Eating (QC): 6 Groomin Oral Hygiene (QC): 6 Bathing(FIM): 6 Shower/Bathe Self (QC): 6 Upper Body Dressing(FIM): 6 Upper Body Dressing (QC): 6 Lower Body Dressing(FIM): 6 Lower Body Dressing (QC): 6 On/Off Footwear (QC): 6 Toileting(FIM): 6 Toileting Hygiene (QC): 6 Toilet/Commode Transfer(FIM): 6 Toilet/Commode Transfer (QC): 6 Shower Transfer(FIM): 6 Additional Goals: 1-Demonstrate ADL Tasks, 2-Verbalize Understanding, 3- ImproveStrength/Yeison 1=Demonstrate adherence to instructed precautions during ADL tasks. 2=Patient will verbalize/demonstrate understanding of assistive devices/ modifications for ADL. 3=Patient will improve strength/tolerance for activity to enable patient to perform ADL's. OT Education/Plan Problem List/Assessment Pt would benefit from skilled OT to increase his independence in basic self care to allow him to safely return home after stroke with L sided weakness Discharge Recommendations Plan/Recommendations: Continue POC Treatment Plan/Plan of Care Patient would benefit from OT for education, treatment and training to promote independence in ADL's, mobility, safety and/or upper extremity function for ADL' s. Plan of Care: ADL Retraining, Functional Mobility, Group Exercise/Act as Ind ( education, exercise, functional activity, socialization, communication, energy conservation education), UE Funct Exercise/Act, UE Neuromus Re-Ed/Coord, Visual/ Perceptual Retrain (as needed) Treatment Duration: Apr 02, 2018 Frequency: At least 5 of 7 days/Wk (IRF) Estimated Hrs Per Day: 1.5 hours per day Agreement: Yes Rehab Potential: Good Time/GCodes Start Time: 08:00 Stop Time: 09:00 Total Time Billed (hr/min): 60 Billed Treatment Time 1 visit, ADL(15minutes), EXx3(45minutes) PHILIPP SCHOFIELD OT Mar 17, 2018 08:59
--- NOTE | 2018-03-17 10:10 | Cardiology Progress Note ---
Cardiology SOAP Progress Note Subjective: No cardiac complaints. Objective: I&O/Vital Signs 03/17/18 03/17/18 05:07 09:00 Temp 97.6 Pulse 63 Resp 18 B/P (MAP) 126/82 (97) Pulse Ox 98 O2 Delivery Room Air Room Air 03/17/18 00:00 Intake Total 860 ml Balance 860 ml Weight (Pounds): 164 Weight (Ounces): 0.0 Weight (Calculated Kilograms): 74.447305 Constitutional: No appears stated age, No AAO x 3, No apparent distress, No PERRL, No well-developed, No well-nourished, No other Respiratory: No accessory muscle use, No respiratory distress, No chest tender , No chest expansion is symmetric; chest is bilaterally symmetric; No lungs clear to percussion; lungs clear to auscultation; No crackles, No rhonchi, No rales, No stridor, No wheezing, No pleural rub, No other Cardiovascular: regular rate-rhythm; No irregularly irregular, No extra beats, No parasternal heave is noted, No JVD, No edema, No bradycardia, No tachycardia , No point of maximal impulse, No cardiac thrills are palpable; S1 and S2; No gallop/S3, No gallop/S4, No diastolic murmur, No systolic murmur, No friction rub, No click, No other Gastrointestional: No tender, No soft, No round, No distended, No pulsatile mass, No organomegaly, No guarding, No rebound, No tenderness, No hernia, No mass, No audible bowel sounds, No abnormal bowel sounds, No abdominal bruits, No spleenomegaly, No other Extremities: No normal range of motion, No non-tender, No normal inspection, No pedal edema, No calf tenderness, No normal capillary refill, No pelvis stable , No calf tenderness, No inflammation, No pedal edema, No slow capillary refill , No swelling, No other, No abrasion, No clubbing, No cyanosis, No ecchymosis, No laceration, No no lower extremity edema bilateral, No significant edema, No tenderness, No wound Neurologic/Psychiatric: alert, normal mood/affect, oriented x 3, motor weakness A/P: Assessment/Dx: Assessment/Admission Diagnosis Acute stroke, History of DVT, on regular Xarelto, History of hypertension Plan: Plan Acute stroke, on aspirin and Xarelto. CT head did not reveal any acute abnormality. CT angiography did not reveal any significant carotid disease. Echocardiogram with bubble study was negative which ruled out intracardiac shunting. Likely cryptogenic stroke. ILR done. No atrial fibrillation on telemetry for now. However the patient is already on daily Xarelto. The likelihood of atrial fibrillation causing the stroke on Xarelto is low. Hypertension: Continue current medical therapy. Currently undergoing inpatient rehabilitation. Thank you for your consultation. Please call me if you have any questions. Quin Otero MD, FACP, FACC, FSCAI, FHRS, CCDS Interventional Cardiology Cardiac Electrophysiology Vascular Medicine and Endovascular Interventions Sonia OTERO MD Mar 17, 2018 10:10
--- NOTE | 2018-03-17 10:54 | Physical Therapy Daily Note ---
PT Daily Note-Current Subjective Patient sitting EOB pre tx, agrees to PT, no complaints of pain. Appearance Patient sitting EOB post tx with nurse call, phone, tray, all needs met. Mental Status Patient Orientation: Normal For Age Transfers Functional [place] Measure 0=Not Assessed/NA 4=Minimal Assistance 1=Total Assistance 5=Supervision or Setup 2=Maximal Assistance 6=Modified [place] 3=Moderate Assistance 7=Complete IndependenceIRFPAI Quality Coding Scale 6 Independent with activity with or without an assistive device 5 Patient requires set up or clean up by helper. Patient completes activity by themselves 4 Supervision or touching assist (CGA). [place] provide cues , steadying assist 3 The helper provides less than half the effort to complete the activity 2 The helper provides more than half the effort to complete the activity 1 Dependent. The helper does all the effort to complete an activity 7 Patient refused to complete or attempt activity 9 The patient did not perform the activity before the current illness or injury 88 Not attempted due to Medical conditions or safety concerns Transfers (B, C, W/C) (FIM): 6 Scootin Rollin Supine to/from Sit: 6 Sit to/from Stand: 6 Bed to/from Chair: 6 Weight Bearing Right Lower Extremity: Right Full Weight Bearing Left Lower Extremity: Left Full Weight Bearing Gait Training Gait (FIM): 6 Distance: 700'x2 Gait Assistive Device: FWW Better stability, patient able to take more normal steps with left leg, doesn't keep left leg as stiff with stepping Exercises NuStep Minutes: 15 NuStep Workload: 5 Treatments ambulation (community distances and surfaces), functional strengthening, bed mobility, transfers Assessment Current Status: Fair Progress Patient made independent in his room, nurse notified. PT Short Term Goals Short Term Goals Time Frame: Mar 19, 2018 Gait (FIM): 5 Gait Distance Comment: 200' Gait Level of Assist: 5 Gait Assistive Device: FWW PT Half-Way Goals Half-Way Goals PT Buttonhole Machine Operator Goals Time Frame: Apr 02, 2018 Transfers (B,C,W/C) (FIM): 6 Sit to Lying (QC): 6 Lying-Sitting on Side/Bed(QC): 6 Sit to Stand (QC): 6 Rollin Roll Left to Right (QC): 6 Chair/Csk-gu-Xkgwk Xfer(QC): 6 Car Transfer (QC): 6 Gait (FIM): 6 Distance: 300' Walk 10 feet (QC): 6 Walk 10ft-Uneven Surface(QC): 6 Walk 50ft with 2 Turns (QC): 6 Walk 150 ft (QC): 6 Gait Level of Assist: 6 Gait Assistive Device: FWW Stairs (FIM): 2 # of Steps: 4 1 Step (curb) (QC): 4 4 Steps (QC): 4 Stairs Level Of Assist: 5 PT Plan Problem List Problem List: Activity Tolerance, Functional Strength, Safety, Balance, Gait, Transfer Treatment/Plan Treatment Plan: Continue Plan of Care Treatment Plan: Bed Mobility, Education, Functional Activity Yeison, Functional Strength, Group Therapy, Gait, Safety, Therapeutic Exercise, Transfers Treatment Duration: Apr 02, 2018 Frequency: At least 5 of 7 days/Wk (IRF) Estimated Hrs Per Day: 1.5 hours per day Patient and/or Family Agrees t: Yes Safety Risks/Education Patient Education: Gait Training, Transfer Techniques, Correct Positioning, Safety Issues Teaching Recipient: Patient Teaching Methods: Demonstration, Discussion Response to Teaching: Reinforcement Needed Discussed use of AD at home and recommended outpatient therapy. Time/GCodes Time In: 1000 Time Out: 1100 Total Billed Treatment Time: 60 Total Billed Treatment 1 visit EX 15' FA 10' GT 35' MAHSA MCGHEE PT Mar 17, 2018 10:54
--- NOTE | 2018-03-17 14:10 | PM & R (SOAP) Progress Note ---
Subjective This was a face to face visit with the patient. Date Seen by Provider: Mar 17, 2018 Time Seen by Provider: 08:00 Subjective/Events-last exam Patient was seen in his room this AM Progressing well with therapies Patient Modified Independent for transfers Objective Physician Exam Last Set of Vital Signs Vital Signs Date Time Temp Pulse Resp B/P (MAP) Pulse Ox O2 Delivery O2 Flow Rate FiO2 03/17/18 09:00 Room Air 03/17/18 05:07 97.6 63 18 126/82 (97) 98 Capillary Refill : I&O Intake and Output 03/16/18 23:59 Intake Total 1460 ml Output Total 200 ml Balance 1260 ml Intake Oral 1460 ml Output Urine Total 200 ml # Voids 5 # Bowel Movements 1 General: Alert, Oriented X3, Cooperative, No Acute Distress HEENT: Atraumatic, PERRLA, EOMI, Mucous Memb Moist/[place], Other (laceration scalp healing) Neck: Supple, No JVD Lungs: Clear to Auscultation Heart: Regular Rate Abdomen: Soft, No Tenderness Extremities: No Edema Neuro: Other (RT lower limb strength 5/5 Left Lower limb 2/5 except ankle 0/ 5Strength 4+/5 Both upper limbs) Assessment/Plan Assessment and Plan RT cva with LHP improving prior stroke HTN HX of PE on Xarelto SCC of anus followed by DR ruiz Laceration scalp s/p fall repaired S/P loop recorder implantation 03-12-18 DR Otero Patient reports some minimal serosanguineous drainage Bandaid applied Plan Continue Pt/OT Team Conference tomorrow Patient hopes to go home on 03-19-18 Co-Morbidities that are continuing to impact the rehab process: (include details ) KATYA HINTON MD Mar 17, 2018 14:10
--- NOTE | 2018-03-17 14:23 | Occupational Ther Daily Note ---
OT Current Status-Daily Note Subjective Pt sitting EOB, agrees to therapy. Mental Status/Objective Functional [place] Measure 0=Not Assessed/NA 4=Minimal Assistance 1=Total Assistance 5=Supervision or Setup 2=Maximal Assistance 6=Modified [place] 3=Moderate Assistance 7=Complete [place] ADL-Treatment Functional [place] Measure 0=Not Assessed/NA 4=Minimal Assistance 1=Total Assistance 5=Supervision or Setup 2=Maximal Assistance 6=Modified [place] 3=Moderate Assistance 7=Complete IndependenceIRFPAI Quality Coding Scale 6 Independent with activity with or without an assistive device 5 Patient requires set up or clean up by helper. Patient completes activity by themselves 4 Supervision or touching assist (CGA). [place] provide cues , steadying assist 3 The helper provides less than half the effort to complete the activity 2 The helper provides more than half the effort to complete the activity 1 Dependent. The helper does all the effort to complete an activity 7 Patient refused to complete or attempt activity 9 The patient did not perform the activity before the current illness or injury 88 Not attempted due to Medical conditions or safety concerns Other Treatment Pt performed gait to therapy gym with FWW, no LOB noted. Pt completed fine motor task with nuts and bolts to increase coordination/manipulation skills. Pt able to complete task within reasonable amount of time and did not require any assistance. Graded clothespin task to increase paint laboratory technician/pinch strength of left hand. Pt used left hand to string small beads to increase coordination. Pt able to complete task without dropping any beads. Pt returned to room, sitting EOB with needs met after session. OT Short Term Goals Short Term Goals Time Frame: Mar 19, 2018 Grooming(FIM): 5 Bathing(FIM): 5 Upper Body Dressing(FIM): 5 Lower Body Dressing(FIM): 5 Toileting(FIM): 5 Toilet/Commode Transfer(FIM): 5 Shower Transfer(FIM): 5 Additional Short Term Goals: 1-Demonstrate ADL Tasks, 2-Verbalize Understanding , 3-ImproveStrength/Yeison 1=Demonstrate adherence to instructed precautions during ADL tasks. 2=Patient will verbalize/demonstrate understanding of assistive devices/ modifications for ADL. 3=Patient will improve strength/tolerance for activity to enable patient to perform ADL's. OT Usp Goals Usp Goals Time Frame: Apr 02, 2018 Eating (FIM): 7 Eating (QC): 6 Groomin Oral Hygiene (QC): 6 Bathing(FIM): 6 Shower/Bathe Self (QC): 6 Upper Body Dressing(FIM): 6 Upper Body Dressing (QC): 6 Lower Body Dressing(FIM): 6 Lower Body Dressing (QC): 6 On/Off Footwear (QC): 6 Toileting(FIM): 6 Toileting Hygiene (QC): 6 Toilet/Commode Transfer(FIM): 6 Toilet/Commode Transfer (QC): 6 Shower Transfer(FIM): 6 Additional Goals: 1-Demonstrate ADL Tasks, 2-Verbalize Understanding, 3- ImproveStrength/Yeison 1=Demonstrate adherence to instructed precautions during ADL tasks. 2=Patient will verbalize/demonstrate understanding of assistive devices/ modifications for ADL. 3=Patient will improve strength/tolerance for activity to enable patient to perform ADL's. OT Education/Plan Problem List/Assessment Pt would benefit from skilled OT to increase his independence in basic self care to allow him to safely return home after stroke with L sided weakness Discharge Recommendations Plan/Recommendations: Continue POC Treatment Plan/Plan of Care Patient would benefit from OT for education, treatment and training to promote independence in ADL's, mobility, safety and/or upper extremity function for ADL' s. Plan of Care: ADL Retraining, Functional Mobility, Group Exercise/Act as Ind ( education, exercise, functional activity, socialization, communication, energy conservation education), UE Funct Exercise/Act, UE Neuromus Re-Ed/Coord, Visual/ Perceptual Retrain (as needed) Treatment Duration: Apr 02, 2018 Frequency: At least 5 of 7 days/Wk (IRF) Estimated Hrs Per Day: 1.5 hours per day Agreement: Yes Rehab Potential: Good Time/GCodes Start Time: 13:30 Stop Time: 14:00 Total Time Billed (hr/min): 30 Billed Treatment Time 1 visit, FA(20minutes), EX(10minutes) PHILIPP SCHOFIELD OT Mar 17, 2018 14:23
--- NOTE | 2018-03-17 14:40 | Physical Therapy Daily Note ---
PT Daily Note-Current Subjective Patient sitting EOB pre tx, agrees to PT, no complaints of pain. Appearance Patient sitting EOB post tx with nurse call, phone, tray, all needs met. Mental Status Patient Orientation: Normal For Age Transfers Functional [place] Measure 0=Not Assessed/NA 4=Minimal Assistance 1=Total Assistance 5=Supervision or Setup 2=Maximal Assistance 6=Modified [place] 3=Moderate Assistance 7=Complete IndependenceIRFPAI Quality Coding Scale 6 Independent with activity with or without an assistive device 5 Patient requires set up or clean up by helper. Patient completes activity by themselves 4 Supervision or touching assist (CGA). [place] provide cues , steadying assist 3 The helper provides less than half the effort to complete the activity 2 The helper provides more than half the effort to complete the activity 1 Dependent. The helper does all the effort to complete an activity 7 Patient refused to complete or attempt activity 9 The patient did not perform the activity before the current illness or injury 88 Not attempted due to Medical conditions or safety concerns Transfers (B, C, W/C) (FIM): 6 Sit to/from Stand: 6 Bed to/from Chair: 6 Weight Bearing Right Lower Extremity: Right Full Weight Bearing Left Lower Extremity: Left Full Weight Bearing Gait Training Gait (FIM): 6 Distance: 150'x2 Gait Assistive Device: FWW Patient also ambulated 200' with a single point cane with SBA, much more steady ambulation, no LOB. Stair Training Stair Training: Handrails/: 1 handrail Stairs (FIM): 5 #of Steps: 12 Stairs: Pattern: Step to Level of Assist: 5 Treatments sidestepping 50', backwards walking 50' Assessment Current Status: Fair Progress improving balance and ambulation PT Short Term Goals Short Term Goals Time Frame: Mar 19, 2018 Gait (FIM): 5 Gait Distance Comment: 200' Gait Level of Assist: 5 Gait Assistive Device: FWW PT Hydrotreater Operator Goals Hydrotreater Operator Goals PT Halfway Goals Time Frame: Apr 02, 2018 Transfers (B,C,W/C) (FIM): 6 Sit to Lying (QC): 6 Lying-Sitting on Side/Bed(QC): 6 Sit to Stand (QC): 6 Rollin Roll Left to Right (QC): 6 Chair/[place] Xfer(QC): 6 Car Transfer (QC): 6 Gait (FIM): 6 Distance: 300' Walk 10 feet (QC): 6 Walk 10ft-Uneven Surface(QC): 6 Walk 50ft with 2 Turns (QC): 6 Walk 150 ft (QC): 6 Gait Level of Assist: 6 Gait Assistive Device: FWW Stairs (FIM): 2 # of Steps: 4 1 Step (curb) (QC): 4 4 Steps (QC): 4 Stairs Level Of Assist: 5 PT Plan Problem List Problem List: Activity Tolerance, Functional Strength, Safety, Balance, Gait, Transfer Treatment/Plan Treatment Plan: Continue Plan of Care Treatment Plan: Bed Mobility, Education, Functional Activity Yeison, Functional Strength, Group Therapy, Gait, Safety, Therapeutic Exercise, Transfers Treatment Duration: Apr 02, 2018 Frequency: At least 5 of 7 days/Wk (IRF) Estimated Hrs Per Day: 1.5 hours per day Patient and/or Family Agrees t: Yes Safety Risks/Education Patient Education: Gait Training, Transfer Techniques, Correct Positioning, Safety Issues Teaching Recipient: Patient Teaching Methods: Demonstration, Discussion Response to Teaching: Reinforcement Needed Time/GCodes Time In: 1400 Time Out: 1430 Total Billed Treatment Time: 30 Total Billed Treatment 1 visit GT 20' NM 10' MAHSA MCGHEE PT Mar 17, 2018 14:40
[2018-03-17 16:04] VITALS: BP 120/78
[2018-03-17] MEDS: ATORVASTATIN 80 MG (LIPITOR) TABLET PO SCH (20:04)
[2018-03-17] MEDS: hydrOXYzine (VISTARIL) 25 MG CAP PO PRN (22:52)
[2018-03-18 06:10] VITALS: BP 115/75
[2018-03-18] MEDS: PANTOPRAZOLE 40 MG (PROTONIX) TAB PO SCH ×2 (06:28→17:07)
[2018-03-18] MEDS: FOLIC ACID 1 MG TAB PO SCH (06:28)
[2018-03-18] MEDS: MULTIVIT W/MINERALS TAB (THERAGRAN M) PO SCH (06:28)
[2018-03-18] MEDS: LEVOTHYROXINE 25 MCG (LEVOTHROID) TAB PO SCH (06:28)
[2018-03-18] MEDS: LOSARTAN 50 MG (COZAAR) TAB PO SCH (08:01)
[2018-03-18] MEDS: RIVAROXABAN 20 MG TABLET (XARELTO) PO SCH (08:01)
[2018-03-18] MEDS: ASPIRIN E.C. 325 MG (ECOTRIN) TABLET PO SCH (08:01)
--- NOTE | 2018-03-18 08:45 | PM & R (SOAP) Progress Note ---
Subjective This was a face to face visit with the patient. Date Seen by Provider: Mar 18, 2018 Time Seen by Provider: 08:00 Subjective/Events-last exam Patient was seen in his room this AM Patient Modified Independent for transfers Objective Physician Exam Last Set of Vital Signs Vital Signs Date Time Temp Pulse Resp B/P (MAP) Pulse Ox O2 Delivery O2 Flow Rate FiO2 03/18/18 06:10 97.0 70 16 115/75 (88) 97 Room Air Capillary Refill : I&O Intake and Output 03/18/18 00:00 Intake Total 1100 ml Balance 1100 ml Intake Oral 1100 ml # Voids 7 # Bowel Movements 4 General: Alert, Oriented X3, Cooperative, No Acute Distress HEENT: Atraumatic, PERRLA, EOMI, Mucous Memb Moist/[place], Other (laceration scalp healing) Neck: Supple, No JVD Lungs: Clear to Auscultation Heart: Regular Rate Abdomen: Soft, No Tenderness Extremities: No Edema Neuro: Other (RT lower limb strength 5/5 Left Lower limb 2/5 except ankle 0/ 5Strength 4+/5 Both upper limbs) Assessment/Plan Assessment and Plan RT cva with left HP improving Prior stroke HTN Hx of PE on xarelto 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
--- NOTE | 2018-03-18 09:00 | Occupational Ther Daily Note ---
OT Current Status-Daily Note Subjective Pt sitting EOB, agrees to treatment. Pt states he would like to d/c home tomorrow. No c/o pain. Mental Status/Objective Functional [place] Measure 0=Not Assessed/NA 4=Minimal Assistance 1=Total Assistance 5=Supervision or Setup 2=Maximal Assistance 6=Modified [place] 3=Moderate Assistance 7=Complete [place] ADL-Treatment Pt sit to stand with modified independence. Gait to restroom with FWW. Transfer to toilet with modified independence. Pt able to complete toileting hygiene and clothing management with modified independence. Transfer to walk in shower with modified independence. Pt doffed clothing without assistance. Seated bathing completed using hand held shower. Pt able to bathe all areas with modified independence. Pt retrieved own clothing prior to OT session. Pt donned shirt independently. Don underwear and pants with modified independence. Don socks and shoes with modified independence while sitting EOB. Pt states he already completed grooming tasks this morning without assistance. Functional [place] Measure 0=Not Assessed/NA 4=Minimal Assistance 1=Total Assistance 5=Supervision or Setup 2=Maximal Assistance 6=Modified [place] 3=Moderate Assistance 7=Complete IndependenceIRFPAI Quality Coding Scale 6 Independent with activity with or without an assistive device 5 Patient requires set up or clean up by helper. Patient completes activity by themselves 4 Supervision or touching assist (CGA). [place] provide cues , steadying assist 3 The helper provides less than half the effort to complete the activity 2 The helper provides more than half the effort to complete the activity 1 Dependent. The helper does all the effort to complete an activity 7 Patient refused to complete or attempt activity 9 The patient did not perform the activity before the current illness or injury 88 Not attempted due to Medical conditions or safety concerns Eating (FIM): 7 Eating (QC): 6 Grooming (FIM): 7 Oral Hygiene (QC): 6 Bathing (FIM): 6 Shower/Bathe Self (QC): 6 Upper Body (FIM): 7 Upper Body Dressing (QC): 6 Lower Body Dressing (FIM): 6 Lower Body Dressing (QC): 6 On/Off Footwear (QC): 6 Toileting (FIM): 6 Toileting Hygiene (QC): 6 Toilet/Commode Transfer (FIM): 6 Toilet Transfer (QC): 6 Shower Transfer(FIM): 6 Other Treatment Gait to therapy gym with FWW, no LOB noted. Pt completed arm bike activity to increase overall strength and activity tolerance. Pt completed task with moderate resistance and steady pace. No rest breaks needed. Pt went to therapy kitchen and retrieved cup from upper cabinet. Pt able to fill cup with ice and water without assistance. Uses FWW for balance and is able to safely manage. Pt returned to room, sitting EOB with needs met after session. Education OT Patient Education: Safety issues Teaching Recipient: Patient Teaching Methods: Discussion Response to Teaching: Verbalize Understanding OT Short Term Goals Short Term Goals Time Frame: Mar 19, 2018 Grooming(FIM): 5 Bathing(FIM): 5 Upper Body Dressing(FIM): 5 Lower Body Dressing(FIM): 5 Toileting(FIM): 5 Toilet/Commode Transfer(FIM): 5 Shower Transfer(FIM): 5 Additional Short Term Goals: 1-Demonstrate ADL Tasks, 2-Verbalize Understanding , 3-ImproveStrength/Yeison 1=Demonstrate adherence to instructed precautions during ADL tasks. 2=Patient will verbalize/demonstrate understanding of assistive devices/ modifications for ADL. 3=Patient will improve strength/tolerance for activity to enable patient to perform ADL's. OT Machine Compositor Goals Machine Compositor Goals Time Frame: Apr 02, 2018 Eating (FIM): 7 (met) Eating (QC): 6 (6-MET) Groomin (met) Oral Hygiene (QC): 6 (6-MET) Bathing(FIM): 6 (met 03/18/18) Shower/Bathe Self (QC): 6 (6-MET) Upper Body Dressing(FIM): 6 (met 03/18/18) Upper Body Dressing (QC): 6 (6-MET) Lower Body Dressing(FIM): 6 (met 03/18/18) Lower Body Dressing (QC): 6 (6-MET) On/Off Footwear (QC): 6 (6-MET) Toileting(FIM): 6 (met 03/18/18) Toileting Hygiene (QC): 6 (6-MET) Toilet/Commode Transfer(FIM): 6 (met 02/24/18) Toilet/Commode Transfer (QC): 6 (6-MET) Shower Transfer(FIM): 6 (met 03/18/18) Additional Goals: 1-Demonstrate ADL Tasks, 2-Verbalize Understanding, 3- ImproveStrength/Yeison 1=Demonstrate adherence to instructed precautions during ADL tasks. 2=Patient will verbalize/demonstrate understanding of assistive devices/ modifications for ADL. 3=Patient will improve strength/tolerance for activity to enable patient to perform ADL's. OT Education/Plan Problem List/Assessment Pt would benefit from skilled OT to increase his independence in basic self care to allow him to safely return home after stroke with L sided weakness Discharge Recommendations Plan/Recommendations: Continue POC Treatment Plan/Plan of Care Patient would benefit from OT for education, treatment and training to promote independence in ADL's, mobility, safety and/or upper extremity function for ADL' s. Plan of Care: ADL Retraining, Functional Mobility, Group Exercise/Act as Ind ( education, exercise, functional activity, socialization, communication, energy conservation education), UE Funct Exercise/Act, UE Neuromus Re-Ed/Coord, Visual/ Perceptual Retrain (as needed) Treatment Duration: Apr 02, 2018 Frequency: At least 5 of 7 days/Wk (IRF) Estimated Hrs Per Day: 1.5 hours per day Agreement: Yes Rehab Potential: Good Time/GCodes Start Time: 08:00 Stop Time: 09:00 Total Time Billed (hr/min): 60 Billed Treatment Time 1 visit, ADLx3(45minutes), EX(15minutes) PHILIPP SCHOFIELD OT Mar 18, 2018 09:00
--- NOTE | 2018-03-18 10:42 | Progress Note-Hospitalist ---
Subjective HPI/CC On Admission Date Seen by Provider: Mar 18, 2018 Time Seen by Provider: 10:30 Subjective/Events-last exam Feels great DC planned for tomorrow REVEAL device in place EST will be changed to Dr Otero instead of with me 03/30/18 as scheduled No issues Left foot and leg have made significant progress Objective Exam Vital Signs Vital Signs Date Time Temp Pulse Resp B/P (MAP) Pulse Ox O2 Delivery O2 Flow Rate FiO2 03/18/18 06:10 97.0 70 16 115/75 (88) 97 Room Air Capillary Refill : General Appearance: No Apparent Distress, WD/WN Respiratory: Chest Non Tender, Lungs Clear, Normal Breath Sounds, No Accessory Muscle Use, No Respiratory Distress Cardiovascular: Regular Rate, Rhythm, No Edema, No Gallop, No JVD, No Murmur, Normal Peripheral Pulses Neurologic/Psychiatric: Alert, Oriented x3, No Motor/Sensory Deficits, Normal Mood/Affect, Motor Weakness (minimal left foot weakness) Results/Procedures Lab Patient resulted labs reviewed. Assessment/Plan Assessment and Plan Assess & Plan/Chief Complaint Assessment: Acute CVA while on ASA 325mg and Xarelto Left leg weakness residual HTN GERD SCC of rectum s/p treatment h/o PE 2016 Prior CVA 2015 Plan: REVEAL device placement EST in 2 weeks Follow up with me in 1 week. Diagnosis/Problems Diagnosis/Problems (1) Cerebral infarction, unspecified Status: Acute Qualifiers: Cerebral infarction mechanism: unspecified mechanism Qualified Codes: I63.9 - Cerebral infarction, unspecified (2) Anal cancer Status: Chronic (3) Hypertension Status: Chronic Qualifiers: Hypertension type: essential hypertension Qualified Codes: I10 - Essential (primary) hypertension (4) GERD (gastroesophageal reflux disease) Status: Chronic Qualifiers: Esophagitis presence: without esophagitis Qualified Codes: K21.9 - Gastro- esophageal reflux disease without esophagitis (5) Anticoagulant long-term use Status: Chronic (6) Aspirin long-term use Status: Chronic (7) Lower extremity weakness Status: Acute (8) Hx pulmonary embolism Status: Chronic (9) Varicose veins of both lower extremities Status: Chronic (10) Hemianopia of left eye Status: Chronic Clinical Quality Measures DVT/VTE Risk/Contraindication: Risk Factor Score Per Nursin RFS Level Per Nursing on Admit: 4+=Very High MELA GRULLON DO Mar 18, 2018 10:42
--- NOTE | 2018-03-18 11:00 | Physical Therapy Daily Note ---
PT Daily Note-Current Subjective Pt. smiling and agreeable to Rx. States he is looking forward to going home and has everything ready there. States he has made some progress with DF on left foot, works it all the time Pain Numeric Pain Scale: 0-No Pain Mental Status Patient Orientation: Normal For Age Transfers Functional [place] Measure 0=Not Assessed/NA 4=Minimal Assistance 1=Total Assistance 5=Supervision or Setup 2=Maximal Assistance 6=Modified [place] 3=Moderate Assistance 7=Complete IndependenceIRFPAI Quality Coding Scale 6 Independent with activity with or without an assistive device 5 Patient requires set up or clean up by helper. Patient completes activity by themselves 4 Supervision or touching assist (CGA). [place] provide cues , steadying assist 3 The helper provides less than half the effort to complete the activity 2 The helper provides more than half the effort to complete the activity 1 Dependent. The helper does all the effort to complete an activity 7 Patient refused to complete or attempt activity 9 The patient did not perform the activity before the current illness or injury 88 Not attempted due to Medical conditions or safety concerns Transfers (B, C, W/C) (FIM): 6 Scootin Rollin Roll Left to Right (QC): 5 Supine to/from Sit: 6 Sit to/from Stand: 6 Sit to Lying (QC): 5 Sit to Stand (QC): 5 Chair/Cck-gb-Gsnio Xfer(QC): 5 Bed to/from Chair: 6 Car Transfer (QC): 5 up ad kya, observed with good safe habits Weight Bearing Right Lower Extremity: Right Full Weight Bearing Left Lower Extremity: Left Full Weight Bearing Gait Training Does the Patient Walk?: Yes Gait (FIM): 6 Distance (FIM): 3=150 ft (250x2,150) Walk 10 feet (QC): 5 Walk 50 ft with 2 Turns(QC): 5 Walk 150 ft (QC): 5 Walking 10ft/uneven surface-QC: 5 Gait Level of Assist: 6 Gait Persons Needed: 0 Gait Assistive Device: FWW slow, some cues for alignment Wheelchair Training Does the Pt Use a Wheelchair?: No Stair Training Stair Training: Handrails/: 2 handrails Stairs (FIM): 6 #of Steps: 12 1 Step (curb) (QC): 5 4 Steps (QC): 5 12 Steps (QC): 5 Stairs: Pattern: Step to Level of Assist: 6 Balance Picking up an Object (QC): 5 Exercises Supine Ex: Bridging, Ankle pumps, Quad Set, Rolling, Glut sets, Heel Slides, Short Arc Quads, Scooting, Straight leg raise, Hip abd/add Supine Reps: 15 Seated Therapy Exercises: Ankle pumps, Sit to stand, Long arc quads, Hip flexion, Hip abd/add Seated Reps: 15 Standing: Hip Abduction, Hamstring curls, Heel/toe raises, Marching, Mini squats, Sit to Stand, Side steps Standing Reps: 15 NuStep Minutes: 10 NuStep Workload: 5 Treatments sidelying exercise for clam shells and hip abd, side stepping in tight spaces left and right with FWW Assessment Current Status: Good Progress PT Short Term Goals Short Term Goals Time Frame: Mar 19, 2018 Gait (FIM): 5 Gait Distance Comment: 200' Gait Level of Assist: 5 Gait Assistive Device: FWW PT Fabrication Operator Goals Fabrication Operator Goals PT Fabrication Operator Goals Time Frame: Apr 02, 2018 Transfers (B,C,W/C) (FIM): 6 Sit to Lying (QC): 6 Lying-Sitting on Side/Bed(QC): 6 Sit to Stand (QC): 6 Rollin Roll Left to Right (QC): 6 Chair/Hxv-rv-Vxikv Xfer(QC): 6 Car Transfer (QC): 6 Gait (FIM): 6 Distance: 300' Walk 10 feet (QC): 6 Walk 10ft-Uneven Surface(QC): 6 Walk 50ft with 2 Turns (QC): 6 Walk 150 ft (QC): 6 Gait Level of Assist: 6 Gait Assistive Device: FWW Stairs (FIM): 2 # of Steps: 4 1 Step (curb) (QC): 4 4 Steps (QC): 4 Stairs Level Of Assist: 5 PT Plan Treatment/Plan Treatment Plan: Continue Plan of Care Treatment Plan: Bed Mobility, Education, Functional Activity Yeison, Functional Strength, Group Therapy, Gait, Safety, Therapeutic Exercise, Transfers Treatment Duration: Apr 02, 2018 Frequency: At least 5 of 7 days/Wk (IRF) Estimated Hrs Per Day: 1.5 hours per day Patient and/or Family Agrees t: Yes Safety Risks/Education Patient Education: Gait Training, Transfer Techniques, Steps, Correct Positioning, Disease Process, Safety Issues Teaching Recipient: Patient Teaching Methods: Demonstration, Discussion Response to Teaching: Verbalize Understanding, Return Demonstration, Reinforcement Needed Time/GCodes Time In: 945 Time Out: 1100 Total Billed Treatment Time: 75 Total Billed Treatment 1,FA15m,GT25m,EX35m G Codes Necessary: DORIS Barnes COOPERATIVE MANAGER Mar 18, 2018 11:00
--- NOTE | 2018-03-18 12:08 | D/C HH Face to Face Order ---
D/C Face to Face Orders Instructions for Patient [facility], Patient Instructions/FollowUp: Dr. Holbrook Physician to follow Patient: Dr. Holbrook Discharge Diet for Home: Regular Diet Patient Data-Allergies,Ht & Wt Patient Allergies: Coded Allergies: lisinopril (Verified Allergy, Severe, LIPS SWELLING, 12/26/16) Nitrate (Verified Allergy, Intermediate, HIVES, 12/26/16) amlodipine besylate (Verified Adverse Reaction, Unknown, LOW BP, 12/26/16) Uncoded Allergies: MARIANNA (Adverse Reaction, Intermediate, COLD, 01/30/12) Height (Feet): 5 Height (Inches): 8.00 Weight (Pounds): 164 Weight (Ounces): 0.0 Home Health Need/Face to Face Date of Face to Face: Mar 19, 2018 Clinical Findings: Generalized weakness and fatigue, Muscle weakness I have seen Pt [id number]: Yes Discharged To: Home Diagnosis/Conditions: CVA Patient is Homebound due to: Muscle weakness Homebound Status Due to the above stated illness, injury or surgical procedure (medical condition or diagnosis) and associated clinical findings, the patient is homebound because of his/her inability to leave home except with aid of a supportive device and/or person AND leaving the home requires a considerable and taxing effort or is medically contraindicated. Pt req the following assistanc: Walker Home Health Nursing Orders Home Health Services Order: Nursing Services, Repossessor-Evaluate & Treat, Physical Therapy-Evaluate & Treat Home Health Infusion Therapy Line Type: Saline Lock Site Location: Hand Therapy Orders Therapy Orders: OT (must have SN or PT order), Physical Therapy Therapy Specific Orders: Eval assistive deivces, Teach enviro modifications/ safety, Gait training, Increase strength/endurance, Restore ROM Certify Stmt I certify that this patient is under my care and that I, a nurse practitioner or a physician; a engineer third assistant working with me, had a face to face encounter that - meets the physician face to face encounter requirements with this patient as dated. I personally scribed for KATYA HINTON MD ([facility]) on 03/18/18 at 12:08. Electronically submitted by Vinita Loredo ([id number]). KATYA HINTON MD Mar 18, 2018 12:08
--- NOTE | 2018-03-18 13:21 | Cardiology Progress Note ---
Cardiology SOAP Progress Note Subjective: No cardiac complaints. Objective: I&O/Vital Signs 03/18/18 06:10 Temp 97.0 Pulse 70 Resp 16 B/P (MAP) 115/75 (88) Pulse Ox 97 O2 Delivery Room Air 03/18/18 00:00 Intake Total 1000 ml Balance 1000 ml Weight (Pounds): 164 Weight (Ounces): 0.0 Weight (Calculated Kilograms): [id number] Constitutional: No appears stated age, No AAO x 3, No apparent distress, No PERRL, No well-developed, No well-nourished, No other Respiratory: No accessory muscle use, No respiratory distress, No chest tender , No chest expansion is symmetric; chest is bilaterally symmetric; No lungs clear to percussion; lungs clear to auscultation; No crackles, No rhonchi, No rales, No stridor, No wheezing, No pleural rub, No other Cardiovascular: regular rate-rhythm; No irregularly irregular, No extra beats, No parasternal heave is noted, No JVD, No edema, No bradycardia, No tachycardia , No point of maximal impulse, No cardiac thrills are palpable; S1 and S2; No gallop/S3, No gallop/S4, No diastolic murmur, No systolic murmur, No friction rub, No click, No other Gastrointestional: No tender, No soft, No round, No distended, No pulsatile mass, No organomegaly, No guarding, No rebound, No tenderness, No hernia, No mass, No audible bowel sounds, No abnormal bowel sounds, No abdominal bruits, No spleenomegaly, No other Extremities: No normal range of motion, No non-tender, No normal inspection, No pedal edema, No calf tenderness, No normal capillary refill, No pelvis stable , No calf tenderness, No inflammation, No pedal edema, No slow capillary refill , No swelling, No other, No abrasion, No clubbing, No cyanosis, No ecchymosis, No laceration, No no lower extremity edema bilateral, No significant edema, No tenderness, No wound Neurologic/Psychiatric: alert, normal mood/affect, oriented x 3, motor weakness A/P: Assessment/Dx: Assessment/Admission Diagnosis Acute stroke, History of DVT, on regular Xarelto, History of hypertension Plan: Plan Acute stroke, on aspirin and Xarelto. CT head did not reveal any acute abnormality. CT angiography did not reveal any significant carotid disease. Echocardiogram with bubble study was negative which ruled out intracardiac shunting. Likely cryptogenic stroke. ILR done. No atrial fibrillation on telemetry for now. I will setup remote monitoring for the ILR. However the patient is already on daily Xarelto. The likelihood of atrial fibrillation causing the stroke on Xarelto is low. Hypertension: Continue current medical therapy. Currently undergoing inpatient rehabilitation. Thank you for your consultation. Please call me if you have any questions. Quin Oteor MD, FACP, FACC, FSCAI, FHRS, CCDS Interventional Cardiology Cardiac Electrophysiology Vascular Medicine and Endovascular Interventions Sonia OTERO MD Mar 18, 2018 1:21 pm
--- NOTE | 2018-03-18 13:28 | Physical Therapy Daily Note ---
PT Daily Note-Current Subjective Pt. agrees to Rx. States he would like to practice walking on grassy surface as he will have to do this at home Pain Numeric Pain Scale: 0-No Pain Mental Status Patient Orientation: Normal For Age Transfers Functional [place] Measure 0=Not Assessed/NA 4=Minimal Assistance 1=Total Assistance 5=Supervision or Setup 2=Maximal Assistance 6=Modified [place] 3=Moderate Assistance 7=Complete IndependenceIRFPAI Quality Coding Scale 6 Independent with activity with or without an assistive device 5 Patient requires set up or clean up by helper. Patient completes activity by themselves 4 Supervision or touching assist (CGA). [place] provide cues , steadying assist 3 The helper provides less than half the effort to complete the activity 2 The helper provides more than half the effort to complete the activity 1 Dependent. The helper does all the effort to complete an activity 7 Patient refused to complete or attempt activity 9 The patient did not perform the activity before the current illness or injury 88 Not attempted due to Medical conditions or safety concerns all TRFs mod I, park bench seating, waiting room seating and dining chair without arms all Mod i Weight Bearing Right Lower Extremity: Right Full Weight Bearing Left Lower Extremity: Left Full Weight Bearing Gait Training Gait Assistive Device: FWW 800 ft up down gentle grades on concrete etc, over transitions of elevators and door jambs as well as curbs and on grassy surface with uneven terrain, all without incident Assessment Current Status: Excellent Progress PT Short Term Goals Short Term Goals Time Frame: Mar 19, 2018 Gait (FIM): 5 Gait Distance Comment: 200' Gait Level of Assist: 5 Gait Assistive Device: FWW PT Detention Goals Detention Goals PT Detention Goals Time Frame: Apr 02, 2018 Transfers (B,C,W/C) (FIM): 6 Sit to Lying (QC): 6 Lying-Sitting on Side/Bed(QC): 6 Sit to Stand (QC): 6 Rollin Roll Left to Right (QC): 6 Chair/Zrm-yo-Idmzs Xfer(QC): 6 Car Transfer (QC): 6 Gait (FIM): 6 Distance: 300' Walk 10 feet (QC): 6 Walk 10ft-Uneven Surface(QC): 6 Walk 50ft with 2 Turns (QC): 6 Walk 150 ft (QC): 6 Gait Level of Assist: 6 Gait Assistive Device: FWW Stairs (FIM): 2 # of Steps: 4 1 Step (curb) (QC): 4 4 Steps (QC): 4 Stairs Level Of Assist: 5 PT Plan Treatment/Plan Treatment Plan: Continue Plan of Care Treatment Plan: Bed Mobility, Education, Functional Activity Yeison, Functional Strength, Group Therapy, Gait, Safety, Therapeutic Exercise, Transfers Treatment Duration: Apr 02, 2018 Frequency: At least 5 of 7 days/Wk (IRF) Estimated Hrs Per Day: 1.5 hours per day Patient and/or Family Agrees t: Yes Safety Risks/Education Patient Education: Gait Training, Transfer Techniques, Safety Issues Teaching Recipient: Patient, Family Teaching Methods: Demonstration, Discussion Response to Teaching: Verbalize Understanding, Return Demonstration, Reinforcement Needed Time/GCodes Time In: 1300 Time Out: 1320 Total Billed Treatment Time: 20 Total Billed Treatment 1,Gt20m G Codes Necessary: DORIS Barnes OPTICAL INSTRUMENT ASSEMBLY SUPERVISOR Mar 18, 2018 13:28
--- NOTE | 2018-03-18 14:20 | Occupational Ther Daily Note ---
OT Current Status-Daily Note Subjective Pt agreeable to treatment. Mental Status/Objective Functional [place] Measure 0=Not Assessed/NA 4=Minimal Assistance 1=Total Assistance 5=Supervision or Setup 2=Maximal Assistance 6=Modified [place] 3=Moderate Assistance 7=Complete [place] ADL-Treatment Sit to stand with modified independence. Gait to restroom with FWW, no LOB noted. Transfer to toilet with modified independence. Pt able to complete toileting hygiene and clothing management with modified independence. Stood at sink to wash hands without assistance. Functional [place] Measure 0=Not Assessed/NA 4=Minimal Assistance 1=Total Assistance 5=Supervision or Setup 2=Maximal Assistance 6=Modified [place] 3=Moderate Assistance 7=Complete IndependenceIRFPAI Quality Coding Scale 6 Independent with activity with or without an assistive device 5 Patient requires set up or clean up by helper. Patient completes activity by themselves 4 Supervision or touching assist (CGA). [place] provide cues , steadying assist 3 The helper provides less than half the effort to complete the activity 2 The helper provides more than half the effort to complete the activity 1 Dependent. The helper does all the effort to complete an activity 7 Patient refused to complete or attempt activity 9 The patient did not perform the activity before the current illness or injury 88 Not attempted due to Medical conditions or safety concerns Toileting (FIM): 6 Toileting Hygiene (QC): 6 Toilet/Commode Transfer (FIM): 6 Toilet Transfer (QC): 6 Other Treatment Gait to therapy gym with FWW. Pt performed bilateral UE exercises to increase strength for ADLs and transfers. Pt performed 4 exercises x20 reps with 3# weight, focusing on shoulder and elbow movements. Rest breaks taken between exercises. Pt completed resistance peg activity with bilateral UE to increase strength and coordination/manipulation skills. Pt able to complete task without difficulty. Pt returned to room, sitting EOB with needs met after session. OT Short Term Goals Short Term Goals Time Frame: Mar 19, 2018 Grooming(FIM): 5 Bathing(FIM): 5 Upper Body Dressing(FIM): 5 Lower Body Dressing(FIM): 5 Toileting(FIM): 5 Toilet/Commode Transfer(FIM): 5 Shower Transfer(FIM): 5 Additional Short Term Goals: 1-Demonstrate ADL Tasks, 2-Verbalize Understanding , 3-ImproveStrength/Yeison 1=Demonstrate adherence to instructed precautions during ADL tasks. 2=Patient will verbalize/demonstrate understanding of assistive devices/ modifications for ADL. 3=Patient will improve strength/tolerance for activity to enable patient to perform ADL's. OT Tick Sewer Goals Tick Sewer Goals Time Frame: Apr 02, 2018 Eating (FIM): 7 (met) Eating (QC): 6 (6-MET) Groomin (met) Oral Hygiene (QC): 6 (6-MET) Bathing(FIM): 6 (met 03/18/18) Shower/Bathe Self (QC): 6 (6-MET) Upper Body Dressing(FIM): 6 (met 03/18/18) Upper Body Dressing (QC): 6 (6-MET) Lower Body Dressing(FIM): 6 (met 03/18/18) Lower Body Dressing (QC): 6 (6-MET) On/Off Footwear (QC): 6 (6-MET) Toileting(FIM): 6 (met 03/18/18) Toileting Hygiene (QC): 6 (6-MET) Toilet/Commode Transfer(FIM): 6 (met 02/24/18) Toilet/Commode Transfer (QC): 6 (6-MET) Shower Transfer(FIM): 6 (met 03/18/18) Additional Goals: 1-Demonstrate ADL Tasks, 2-Verbalize Understanding, 3- ImproveStrength/Yeison 1=Demonstrate adherence to instructed precautions during ADL tasks. 2=Patient will verbalize/demonstrate understanding of assistive devices/ modifications for ADL. 3=Patient will improve strength/tolerance for activity to enable patient to perform ADL's. OT Education/Plan Problem List/Assessment Pt would benefit from skilled OT to increase his independence in basic self care to allow him to safely return home after stroke with L sided weakness Discharge Recommendations Plan/Recommendations: Continue POC Treatment Plan/Plan of Care Patient would benefit from OT for education, treatment and training to promote independence in ADL's, mobility, safety and/or upper extremity function for ADL' s. Plan of Care: ADL Retraining, Functional Mobility, Group Exercise/Act as Ind ( education, exercise, functional activity, socialization, communication, energy conservation education), UE Funct Exercise/Act, UE Neuromus Re-Ed/Coord, Visual/ Perceptual Retrain (as needed) Treatment Duration: Apr 02, 2018 Frequency: At least 5 of 7 days/Wk (IRF) Estimated Hrs Per Day: 1.5 hours per day Agreement: Yes Rehab Potential: Good Time/GCodes Start Time: 11:30 Stop Time: 12:00 Total Time Billed (hr/min): 30 Billed Treatment Time 1 visit, ADL(10minutes), EX(20minutes) PHILIPP SCHOFIELD OT Mar 18, 2018 14:20
[2018-03-18] MEDS ORDERED: ATOR80TA76 PO (15:50)
[2018-03-18 18:44] VITALS: BP 123/77
[2018-03-18] MEDS: ATORVASTATIN 80 MG (LIPITOR) TABLET PO SCH (20:39)
[2018-03-18] MEDS: hydrOXYzine (VISTARIL) 25 MG CAP PO PRN (23:50)
[2018-03-19 05:50] VITALS: BP 130/83
[2018-03-19] MEDS: MULTIVIT W/MINERALS TAB (THERAGRAN M) PO SCH (06:01)
[2018-03-19] MEDS: LEVOTHYROXINE 25 MCG (LEVOTHROID) TAB PO SCH (06:01)
[2018-03-19] MEDS: FOLIC ACID 1 MG TAB PO SCH (06:01)
[2018-03-19] MEDS: PANTOPRAZOLE 40 MG (PROTONIX) TAB PO SCH (06:01)
--- NOTE | 2018-03-19 08:00 | PM & R (SOAP) Progress Note ---
Subjective This was a face to face visit with the patient. Date Seen by Provider: Mar 19, 2018 Time Seen by Provider: 07:40 Subjective/Events-last exam Patient was seen in his room this AM All set for discharge Has progressed well has weak left dorsiflexors still but improving Date Identified: Mar 19, 2018 Time Identified: 07:45 Medication Intervention: Discharge meds reviewed Objective Physician Exam Last Set of Vital Signs Vital Signs Date Time Temp Pulse Resp B/P (MAP) Pulse Ox O2 Delivery O2 Flow Rate FiO2 03/19/18 05:50 97.4 65 16 130/83 (99) 98 Room Air Capillary Refill : I&O Intake and Output 03/19/18 00:00 Intake Total 1922 ml Balance 1922 ml Intake Oral 1922 ml # Voids 7 # Bowel Movements 3 General: Alert, Oriented X3, Cooperative, No Acute Distress HEENT: Atraumatic, PERRLA, EOMI, Mucous Memb Moist/Wood, Other (laceration scalp healing) Neck: Supple, No JVD Lungs: Clear to Auscultation Heart: Regular Rate Abdomen: Soft, No Tenderness Extremities: No Edema Neuro: Other (RT lower limb strength 5/5 Left Lower limb 2/5 except ankle 0/ 5Strength 4+/5 Both upper limbs) Assessment/Plan Assessment and Plan Home today with HHC and friends see orders F/u with PCP and cardiology Co-Morbidities that are continuing to impact the rehab process: (include details ) KATYA HINTON MD Mar 19, 2018 08:00
[2018-03-19 08:07] VITALS: BP 146/83
[2018-03-19] MEDS: ASPIRIN E.C. 325 MG (ECOTRIN) TABLET PO SCH (08:10)
[2018-03-19] MEDS: LOSARTAN 50 MG (COZAAR) TAB PO SCH (08:10)
[2018-03-19] MEDS: RIVAROXABAN 20 MG TABLET (XARELTO) PO SCH (08:10)
--- NOTE | 2018-03-19 11:09 | Therapy Team Discharge Summary ---
Therapy Discharge Summary Discharge Recommendations Date of Discharge Therapy D/C Recommendations: Home w/ Family Support Physical Therapy Patient came to rehab following a CVA. Upon evaluation patient performed bed mobility with SBA (he has some difficulty with supine <-> sit but can do it without assist), sit to stand CGA, transfers CGA, car transfer CGA, ambulated 180' with a rolling walker with CGA (including 50' with at least 2 turns of 90 degrees and 10' over an uneven surface), and went up and down 1 step using a rolling walker with CGA. Patient has been performing bed mobility and transfer training, balance and endurance training, functional strengthening stair training, gait training, and education. Patient has made good progress and has met all of his senior living goals. Now, patient performs bed mobility and transfers with mod I, car transfer mod I, ambulates 250' with a rolling walker with mod I (including 50' with at least 2 turns of 90 degrees and 10' over an uneven surface), and can go up and down 12 steps using 2 handrails with mod I. Patient is discharging from this facility today and will be discharged from PT at this time. Occupational Therapy Decreased Activ Tolerance, Decreased Safety Aware, Decreased UE Strength, Dependent Transfers, Impaired Bed Mobility, Impaired Funct Balance, Impaired Self-Care Skills PT Fpc Goals Complaint Inspector Goals PT Complaint Inspector Goals Time Frame: Apr 02, 2018 Transfers (B,C,W/C) (FIM): 6 Roll Left to Right (QC): 6 Sit to Lying (QC): 6 Lying-Sitting on Side/Bed(QC): 6 Sit to Stand (QC): 6 Chair/Gyf-vl-Qkabp Xfer(QC): 6 Car Transfer (QC): 6 Gait (FIM): 6 Distance: 300' Walk 10 feet (QC): 6 Walk 10ft-Uneven Surface(QC): 6 Walk 50ft with 2 Turns (QC): 6 Walk 150 ft (QC): 6 Gait Level of Assist: 6 Gait Assistive Device: FWW Stairs (FIM): 2 # of Steps: 4 1 Step (curb) (QC): 4 4 Steps (QC): 4 Stairs Level Of Assist: 5 OT Complaint Inspector Goals Complaint Inspector Goals Time Frame: Apr 02, 2018 Eating (FIM): 7 (met) Eating (QC): 6 (6-MET) Oral Hygiene (QC): 6 (6-MET) Grooming(FIM): 6 (met) Bathing(FIM): 6 (met 03/18/18) Shower/Bathe Self (QC): 6 (6-MET) Upper Body Dressing(FIM): 6 (met 03/18/18) Upper Body Dressing (QC): 6 (6-MET) Lower Body Dressing(FIM): 6 (met 03/18/18) Lower Body Dressing (QC): 6 (6-MET) On/Off Footwear (QC): 6 (6-MET) Toileting(FIM): 6 (met 03/18/18) Toileting Hygiene (QC): 6 (6-MET) Toilet/Commode Transfer(FIM): 6 (met 02/24/18) Toilet/Commode Transfer (QC): 6 (6-MET) Shower Transfer(FIM): 6 (met 03/18/18) Additional Goals: 1-Demonstrate ADL Tasks, 2-Verbalize Understanding, 3- ImproveStrength/Yeison 1=Demonstrate adherence to instructed precautions during ADL tasks. 2=Patient will verbalize/demonstrate understanding of assistive devices/ modifications for ADL. 3=Patient will improve strength/tolerance for activity to enable patient to perform ADL's. MAHSA MCGHEE PT Mar 19, 2018 11:09
[2018-03-19 11:30] VITALS: BP 146/83
--- NOTE | 2018-03-20 13:08 | Therapy Team Discharge Summary ---
Therapy Discharge Summary Discharge Recommendations Date of Discharge Mar 19, 2018 at 14:46 Therapy D/C Recommendations: Home w/ Family Support Occupational Therapy Pt admitted to ARU following acute hospitalization for CVA. On admission pt required CGA for LE dressing, toileting, and transfers, and SBA for UE dressing. Skilled OT intervention focused on ADL training, transfers, strengthening, and safety education. Pt made good progress with therapy and by discharge is completing eating and grooming independently and all other ADLs and transfers with modified independence. Pt met all OT LTG. Pt discharged home. D/C ARU OT. Decreased Activ Tolerance, Decreased Safety Aware, Decreased UE Strength, Dependent Transfers, Impaired Bed Mobility, Impaired Funct Balance, Impaired Self-Care Skills PT [facility] Goals [facility] Goals PT Garage Manager Goals Time Frame: Apr 02, 2018 Transfers (B,C,W/C) (FIM): 6 Roll Left to Right (QC): 6 Sit to Lying (QC): 6 Lying-Sitting on Side/Bed(QC): 6 Sit to Stand (QC): 6 Chair/Bam-bj-Nvlel Xfer(QC): 6 Car Transfer (QC): 6 Gait (FIM): 6 Distance: 300' Walk 10 feet (QC): 6 Walk 10ft-Uneven Surface(QC): 6 Walk 50ft with 2 Turns (QC): 6 Walk 150 ft (QC): 6 Gait Level of Assist: 6 Gait Assistive Device: FWW Stairs (FIM): 2 # of Steps: 4 1 Step (curb) (QC): 4 4 Steps (QC): 4 Stairs Level Of Assist: 5 OT Garage Manager Goals Garage Manager Goals Time Frame: Apr 02, 2018 Eating (FIM): 7 (met) Eating (QC): 6 (6-MET) Oral Hygiene (QC): 6 (6-MET) Grooming(FIM): 6 (met) Bathing(FIM): 6 (met 03/18/18) Shower/Bathe Self (QC): 6 (6-MET) Upper Body Dressing(FIM): 6 (met 03/18/18) Upper Body Dressing (QC): 6 (6-MET) Lower Body Dressing(FIM): 6 (met 03/18/18) Lower Body Dressing (QC): 6 (6-MET) On/Off Footwear (QC): 6 (6-MET) Toileting(FIM): 6 (met 03/18/18) Toileting Hygiene (QC): 6 (6-MET) Toilet/Commode Transfer(FIM): 6 (met 02/24/18) Toilet/Commode Transfer (QC): 6 (6-MET) Shower Transfer(FIM): 6 (met 03/18/18) Additional Goals: 1-Demonstrate ADL Tasks, 2-Verbalize Understanding, 3- ImproveStrength/Yeison 1=Demonstrate adherence to instructed precautions during ADL tasks. 2=Patient will verbalize/demonstrate understanding of assistive devices/ modifications for ADL. 3=Patient will improve strength/tolerance for activity to enable patient to perform ADL's. PHILIPP SCHOFIELD OT Mar 20, 2018 13:08
== END 2018-03-19 14:46 | disposition home health service (06) | DRG 41 ==
PROVIDERS: ADMIT Physical Medicine & Rehabilitation; ATTEND Physical Medicine & Rehabilitation
PROC: 0JH632Z Insertion of Monitoring Device into Chest Subcutaneous Tissue and Fascia, Percutaneous Approach (ICD-10-PCS; principal; 2018-03-12)
DX: I69.354 Hemiplegia and hemiparesis following cerebral infarction affecting left non-dominant side (principal); I69.398 Other sequelae of cerebral infarction; H54.7 Unspecified visual loss; S01.01XD Laceration without foreign body of scalp, subsequent encounter; I10 Essential (primary) hypertension; E78.5 Hyperlipidemia, unspecified; C21.0 Malignant neoplasm of anus, unspecified; I83.93 Asymptomatic varicose veins of bilateral lower extremities; H53.462 Homonymous bilateral field defects, left side; Z79.01 Long term (current) use of anticoagulants; Z86.711 Personal history of pulmonary embolism; W19.XXXD Unspecified fall, subsequent encounter
CPT/HCPCS: 33282

== ENCOUNTER 2018-07-23 11:49 | Outpatient (RCR) | payer BC ==
[~2018-07-23 11:49] MED LIST changes: +LOSA50TA63 PO; -LOSA50TA7 PO
== END 2018-07-23 12:19 | disposition home or self-care (01) ==
PROVIDERS: ATTEND Internal Medicine
DX: I69.344 Monoplegia of lower limb following cerebral infarction affecting left non-dominant side (principal)

== ENCOUNTER 2018-08-19 10:26 | Outpatient (RCR) | payer BC ==
[~2018-08-19 10:26] MED LIST changes: -RIVA20TA PO
== END 2018-11-17 | disposition home or self-care (01) ==
LOC: ONC 10:26
PROVIDERS: ATTEND Internal Medicine Hematology & Oncology
DX: Z08 Encounter for follow-up examination after completed treatment for malignant neoplasm (principal); Z85.048 Personal history of other malignant neoplasm of rectum, rectosigmoid junction, and anus; D66 Hereditary factor VIII deficiency; I10 Essential (primary) hypertension; E78.00 Pure hypercholesterolemia, unspecified; K21.9 Gastro-esophageal reflux disease without esophagitis; H53.9 Unspecified visual disturbance; Z86.711 Personal history of pulmonary embolism; Z86.718 Personal history of other venous thrombosis and embolism; Z79.01 Long term (current) use of anticoagulants; Z79.899 Other long term (current) drug therapy; Z92.3 Personal history of irradiation
CPT/HCPCS: 99213

== ENCOUNTER 2019-02-17 09:55 | Outpatient (RCR) | payer BC | END 2019-05-18 | disposition home or self-care (01) | LOC: ONC 09:55 | PROVIDERS: ATTEND Internal Medicine Hematology & Oncology | DX: Z08 Encounter for follow-up examination after completed treatment for malignant neoplasm (principal); Z85.048 Personal history of other malignant neoplasm of rectum, rectosigmoid junction, and anus; D66 Hereditary factor VIII deficiency; I10 Essential (primary) hypertension; E78.00 Pure hypercholesterolemia, unspecified; K21.9 Gastro-esophageal reflux disease without esophagitis; H53.9 Unspecified visual disturbance; Z86.711 Personal history of pulmonary embolism; Z86.718 Personal history of other venous thrombosis and embolism; Z79.01 Long term (current) use of anticoagulants; Z79.899 Other long term (current) drug therapy; Z92.3 Personal history of irradiation | CPT/HCPCS: 99213 ==

== ENCOUNTER 2020-01-18 12:29 | Outpatient (CLI) | payer MEDICARE ==
[~2020-01-18] VITALS: Ht 170 cm; Wt 75.0 kg
[~2020-01-18 12:29] MED LIST changes: +OMEP40CA27 PO
== END 2020-01-18 12:30 | disposition home or self-care (01) ==
LOC: PREOP 12:29
PROVIDERS: ATTEND Surgery
DX: Z01.818 Encounter for other preprocedural examination (principal)

== ENCOUNTER 2020-01-19 09:33 | Day surgery (SDC) | payer MEDICARE, OTHER ==
[~2020-01-19] VITALS: Ht 170.2 cm; Wt 75.0 kg
[2020-01-19] VITALS (13 sets, daily range): BP systolic 93–130; BP diastolic 56–89
[2020-01-19] MEDS ORDERED: NS IV 500 ML 500 ML ONE (09:35)
[2020-01-19] MEDS ORDERED: NS IV 500 ML 500 ML IV PRN (09:44)
[2020-01-19] MEDS ORDERED: LIDOCAINE JELLY 2% 6 ML SYRINGE MM PRN (09:45)
[2020-01-19] MEDS ORDERED: fentaNYL INJECTION 100 MCG/2 ML AMP IVP ONE (09:45)
--- NOTE | 2020-01-19 09:54 | Conscious Sedation/ASA ---
Conscious Sedation Pre-Proced Time 09:50 ASA Score 2 For ASA 3 and 4: Consider anesthesia and medical clearance. Also, for patients with a history of failed moderate sedation consider anesthesia. Airway Lungs Heart ASA score ASA 1: a normal healthy patient ASA 2: a patient with a mild systemic disease (mid diabetes, controlled hypertension, obesity ASA 3: a patient with a severe systemic disease that limits activity (angina, COPD, prior Myocardial infarction) ASA 4: a patient with an incapacitating disease that is a constant threat to life (CHF, renal failure) ASA 5: a moribund patient not expected to survive 24 hrs. (ruptured aneurysm) ASA 6: a declared brain- patient whose organs are being harvested. For emergent operations, add the letter E after the classification Mallampati Classification Grade 2 Sedation Plan Analgesia, Amnesia, Plan communicated to team members, Discussed options with patient/fam, Discussed risks with patient/fam The patient is an appropriate candidate to undergo the planned procedure, sedation, and anesthesia. The patient immediately re-assessed prior to indication. ROBERT ALBERTS MD Jan 19, 2020 09:54
--- NOTE | 2020-01-19 09:55 | Progress Note-Pre Operative ---
Pre-Operative Progress Note H&P Reviewed The H&P was reviewed, patient examined and no changes noted. 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
--- NOTE | 2020-01-19 09:57 | Discharge Inst-Surgical ---
D/C Lap Instructions-ARISTEO Follow Up Activity as tolerated High Fiber Diet 25g or more per day Avoid Alcohol, Caffeine, Spicy [place] and Acid foods. Drink 64 fluid oz or more of fluids per day. Symptoms to Report: Fever over 101 degree F, Nausea/Vomiting If any problems/questions: Contact your physician or go to Emergency Room ROBERT ALBERTS MD Jan 19, 2020 09:57
[2020-01-19] MEDS ORDERED: ACETAMINOPHEN 325 MG TABLET PO PRN (10:00)
[2020-01-19] MEDS ORDERED: HYDROcodone/APAP 5 MG/325 MG (LORTAB) TAB PO PRN (10:00)
[2020-01-19] MEDS ORDERED: morphine INJ 10 MG/ML 1ML (SYR OR VIAL) IVP PRN ×2 (10:00)
[2020-01-19] MEDS ORDERED: ONDANSETRON 4 MG/2 ML (SDV) Z0FRAN IVP PRN (10:00)
[2020-01-19] MEDS ORDERED: LIDOCAINE JELLY 2% 6 ML SYRINGE ONE (10:35)
[2020-01-19] MEDS ORDERED: MIDAZOLAM 5 MG/5 ML (VERSED) VIAL ONE ×2 (10:42)
[2020-01-19] MEDS ORDERED: fentaNYL INJECTION 100 MCG/2 ML AMP ONE (10:42)
[2020-01-19] MEDS: MIDAZOLAM 5 MG/5 ML (VERSED) VIAL IV PRN ×5 (10:50→11:05)
--- NOTE | 2020-01-19 11:28 | Progress Note-Post Operative ---
Post-Operative Progess Note Surgeon (s)/Security Systems Manager (s) Surgeon ROBERT ALBERTS MD Security Systems Manager: none Pre-Operative Diagnosis hx anal canal squamous cell ca Post-Operative Diagnosis mild anal stricture, no recurrent tumor, moderate sigmoid diverticulosis. Procedure & Operative Findings Date of Procedure 01/19/20 Procedure Performed/Findings colonoscopy with bx. Anesthesia Type cs Estimated Blood Loss Estimated blood loss (mL): minimal Specimens/Packing Specimens Removed anal canal/dentate line ROBERT ALBERTS MD Jan 19, 2020 11:28
--- NOTE | 2020-01-19 20:49 | OPERATIVE REPORT ---
DATE OF SERVICE: 01/19/2020 ADMITTING PRIMARY CARE PHYSICIAN: Joan Holbrook DO PREOPERATIVE DIAGNOSIS: History of anal canal squamous cell carcinoma. POSTOPERATIVE DIAGNOSES: No recurrent tumors, mild palpable stricture, moderate sigmoid diverticulosis. PROCEDURE: Colonoscopy with biopsy. SURGEON: Robert Mixon MD. ANESTHESIA: Conscious sedation. ESTIMATED BLOOD LOSS: Minimal. FINDINGS: No recurrent tumors, mild palpable stricture, moderate sigmoid diverticulosis. DISPOSITION: The patient tolerated the procedure well. INDICATIONS: The patient is a 64-year-old male known to us. He developed what he believes was hemorrhoidal flareups in 2009. He did undergo a colonoscopy, which did show hemorrhoids. He was also found to have a moderate sigmoid diverticulosis. In 2013, he developed diarrhea and blood per rectum and was found to have a lesion in the anal canal, which was circumferential. This was biopsied and consistent with a moderately differentiated squamous cell cancer. He then underwent the combination chemotherapy with radiation or the Danni protocol 03/2014. Since that time, he has had followup colonoscopies in 2014 and as well as in 2016, which have all been and the anal canal biopsied and found to be benign. He states for the most part he continues to do well. DESCRIPTION OF PROCEDURE: The patient was brought to the endoscopy suite, laid in the left lateral decubitus position. After adequate IV pain and sedative medications and conscious sedation anesthesia, digital rectal examination was performed. There were no palpable masses; however, there was a mild palpable stricture of scar tissue at approximately the dentate line. Prostate gland was palpable and appeared normal. The endoscope was then intubated and anus and rectum gently insufflated. There were no recurrent tumors identified. This strictured area was also identified at the dentate line. Multiple biopsies were taken of this region with forceps with visualization of good hemostasis. The endoscope was then advanced through the valves of [place] of the rectum with no polyps or any neoplasms identified. Through the sigmoid colon, a moderate sigmoid diverticulosis identified. Endoscope was then advanced through the remainder of the descending, transverse and ascending colon to the cecum, which were normal. The endoscope was then slowly withdrawn while taking a second look and suctioning of residual air with no additional findings. The patient tolerated the procedure well. We will await the biopsy results; however, have him continue with medical management with a high fiber diet with at least 30 grams of fiber daily as well as significant amounts of water to promote soft stools on a daily basis. If over time the stricture becomes worse, he may need graded dilatation of the anal canal under an anesthesia. Job ID: [id number] DocumentID: [id number] Dictated Date: 01/19/2020 11:23:16 Mesmerist Date: 01/19/2020 20:48:07 Dictated By: ROBERT MIXON MD
== END 2020-01-19 12:35 | disposition home or self-care (01) ==
LOC: ENDO 09:33
PROVIDERS: ATTEND Surgery
DX: K57.30 Diverticulosis of large intestine without perforation or abscess without bleeding (principal); K62.4 Stenosis of anus and rectum; Z85.048 Personal history of other malignant neoplasm of rectum, rectosigmoid junction, and anus; I10 Essential (primary) hypertension; E78.00 Pure hypercholesterolemia, unspecified; K21.9 Gastro-esophageal reflux disease without esophagitis; Z86.718 Personal history of other venous thrombosis and embolism; Z86.73 Personal history of transient ischemic attack (TIA), and cerebral infarction without residual deficits; I73.9 Peripheral vascular disease, unspecified; Z86.010 Personal history of colon polyps; Z87.891 Personal history of nicotine dependence; Z79.890 Hormone replacement therapy; Z79.899 Other long term (current) drug therapy
CPT/HCPCS: 88305

== ENCOUNTER 2020-01-31 10:00 | Outpatient (RCR) | payer MEDICARE, OTHER ==
[~2020-01-31 10:00] MED LIST changes: +ASPI-1238 PO; -ASPI-983 PO; -PANT40TA3 PO; +PANT40TA52 PO
== END 2020-04-30 | disposition home or self-care (01) ==
LOC: LAB 10:00
PROVIDERS: ATTEND Internal Medicine
DX: R19.5 Other fecal abnormalities (principal)
CPT/HCPCS: 82274; 87015; 87045; 87046; 87899

== ENCOUNTER → 2020-02-11 | Outpatient (CLI) | payer MEDICARE, OTHER ==
[2020-02-11 09:15] LABS: BASOPHILS % (AUTO) 0 % (0-10); EOSINOPHILS # (AUTO) 0.1 10^3/uL (0.0-0.3); EOSINOPHILS % (AUTO) 1 % (0-10); HEMATOCRIT 31 % (40-54); HEMOGLOBIN 10.4 G/DL (13.3-17.7); LYMPHOCYTES # (AUTO) 1.2 X 10^3 (1.0-4.0); LYMPHOCYTES % (AUTO) 17 % (12-44); MEAN CORPUSCULAR HEMOGLOBIN 29 PG (25-34); MEAN CORPUSCULAR HGB CONC 33 G/DL (32-36); MEAN CORPUSCULAR VOLUME 87 FL (80-99); MEAN PLATELET VOLUME 8.4 FL (7.4-10.4); MONOCYTES # (AUTO) 0.6 X 10^3 (0.0-1.0); MONOCYTES % (AUTO) 9 % (0-12); NEUTROPHILS # (AUTO) 5.2 X 10^3 (1.8-7.8); NEUTROPHILS % (AUTO) 74 % (42-75); PLATELET COUNT 275 10^3/uL (130-400); WHITE BLOOD COUNT 7.1 10^3/uL (4.3-11.0)
[2020-02-11 09:47] LABS: ALANINE AMINOTRANSFERASE 15 U/L (0-55); ALBUMIN 3.8 GM/DL (3.2-4.5); ALKALINE PHOSPHATASE 52 U/L (40-136); BILIRUBIN,TOTAL 0.4 MG/DL (0.1-1.0); BUN/CREATININE RATIO 14; CALCIUM 8.7 MG/DL (8.5-10.1); CARBON DIOXIDE 20 MMOL/L (21-32); CHLORIDE 111 MMOL/L (98-107); CREATININE SERUM 1.03 MG/DL (0.60-1.30); GFR ESTIMATED > 60; GLUCOSE 79 MG/DL (70-105); SODIUM 140 MMOL/L (135-145); TOTAL PROTEIN 6.6 GM/DL (6.4-8.2)
== END ==
LOC: EDSTATUS 05-19 11:45 → ONC 09:10
PROVIDERS: ATTEND Internal Medicine Hematology & Oncology
DX: D50.9 Iron deficiency anemia, unspecified (principal); I26.99 Other pulmonary embolism without acute cor pulmonale; K44.9 Diaphragmatic hernia without obstruction or gangrene; I82.401 Acute embolism and thrombosis of unspecified deep veins of right lower extremity; M19.91 Primary osteoarthritis, unspecified site; K21.9 Gastro-esophageal reflux disease without esophagitis; E78.00 Pure hypercholesterolemia, unspecified; I10 Essential (primary) hypertension; Z79.01 Long term (current) use of anticoagulants; Z85.048 Personal history of other malignant neoplasm of rectum, rectosigmoid junction, and anus; Z92.3 Personal history of irradiation; Z98.890 Other specified postprocedural states
CPT/HCPCS: 80053; 82378; 82728; 83540; 85025; G0463; 99213

== ENCOUNTER → 2020-02-17 | Outpatient (CLI) | payer MEDICARE, OTHER | LOC: CARD 09:00 | PROVIDERS: ATTEND Internal Medicine Interventional Cardiology | DX: I10 Essential (primary) hypertension (principal); E78.00 Pure hypercholesterolemia, unspecified; I63.9 Cerebral infarction, unspecified; I26.99 Other pulmonary embolism without acute cor pulmonale; I48.3 Typical atrial flutter; C21.1 Malignant neoplasm of anal canal | CPT/HCPCS: 93306 ==

== ENCOUNTER → 2020-06-12 | Outpatient (CLI) | payer MEDICARE, OTHER ==
[2020-06-12 08:58] LABS: BASOPHILS % (AUTO) 0 % (0-10); EOSINOPHILS # (AUTO) 0.1 10^3/uL (0.0-0.3); EOSINOPHILS % (AUTO) 1 % (0-10); HEMATOCRIT 40 % (40-54); HEMOGLOBIN 12.9 g/dL (13.3-17.7); LYMPHOCYTES # (AUTO) 1.6 10^3/uL (1.0-4.0); LYMPHOCYTES % (AUTO) 28 % (12-44); MEAN CORPUSCULAR HEMOGLOBIN 27 pg (25-34); MEAN CORPUSCULAR HGB CONC 32 g/dL (32-36); MEAN CORPUSCULAR VOLUME 83 fL (80-99); MEAN PLATELET VOLUME 8.9 fL (9.0-12.2); MONOCYTES # (AUTO) 0.6 10^3/uL (0.0-1.0); MONOCYTES % (AUTO) 12 % (0-12); NEUTROPHILS # (AUTO) 3.3 10^3/uL (1.8-7.8); NEUTROPHILS % (AUTO) 59 % (42-75); PLATELET COUNT 217 10^3/uL (130-400); WHITE BLOOD COUNT 5.6 10^3/uL (4.3-11.0)
[2020-06-12 09:25] LABS: ALANINE AMINOTRANSFERASE 21 U/L (0-55); ALBUMIN 3.9 GM/DL (3.2-4.5); ALKALINE PHOSPHATASE 57 U/L (40-136); BILIRUBIN,TOTAL 0.4 MG/DL (0.1-1.0); BUN/CREATININE RATIO 15; CALCIUM 9.1 MG/DL (8.5-10.1); CARBON DIOXIDE 22 MMOL/L (21-32); CHLORIDE 105 MMOL/L (98-107); CREATININE SERUM 1.11 MG/DL (0.60-1.30); GFR ESTIMATED > 60; GLUCOSE 92 MG/DL (70-105); POTASSIUM 4.1 MMOL/L (3.6-5.0); SODIUM 137 MMOL/L (135-145); TOTAL PROTEIN 7.1 GM/DL (6.4-8.2)
== END ==
LOC: ONC 08:46
PROVIDERS: ATTEND Internal Medicine Hematology & Oncology
DX: C21.0 Malignant neoplasm of anus, unspecified (principal); D64.9 Anemia, unspecified; Z86.2 Personal history of diseases of the blood and blood-forming organs and certain disorders involving the immune mechanism; Z86.718 Personal history of other venous thrombosis and embolism; Z86.711 Personal history of pulmonary embolism
CPT/HCPCS: 80053; 82728; 83540; 85025; G0463; 99213

== ENCOUNTER → 2020-12-11 | Outpatient (CLI) | payer MEDICARE, OTHER ==
[~2020-12-11] MED LIST changes: -OMEP40CA27 PO; +OMEP40CA6 PO
[2020-12-11 09:05] LABS: BASOPHILS # (AUTO) 0.1 10^3/uL (0.0-0.1); BASOPHILS % (AUTO) 1 % (0-10); EOSINOPHILS # (AUTO) 0.1 10^3/uL (0.0-0.3); EOSINOPHILS % (AUTO) 1 % (0-10); HEMATOCRIT 42 % (40-54); HEMOGLOBIN 14.3 g/dL (13.3-17.7); LYMPHOCYTES # (AUTO) 2.1 10^3/uL (1.0-4.0); LYMPHOCYTES % (AUTO) 31 % (12-44); MEAN CORPUSCULAR HEMOGLOBIN 29 pg (25-34); MEAN CORPUSCULAR HGB CONC 34 g/dL (32-36); MEAN CORPUSCULAR VOLUME 85 fL (80-99); MEAN PLATELET VOLUME 9.5 fL (9.0-12.2); MONOCYTES % (AUTO) 14 % (0-12); NEUTROPHILS # (AUTO) 3.7 10^3/uL (1.8-7.8); NEUTROPHILS % (AUTO) 53 % (42-75); PLATELET COUNT 238 10^3/uL (130-400); WHITE BLOOD COUNT 6.9 10^3/uL (4.3-11.0)
[2020-12-11 09:22] LABS: BILIRUBIN,TOTAL 0.6 MG/DL (0.1-1.0); CALCIUM 9.1 MG/DL (8.5-10.1); CREATININE SERUM 1.28 MG/DL (0.60-1.30); POTASSIUM 4.8 MMOL/L (3.6-5.0); TOTAL PROTEIN 7.2 GM/DL (6.4-8.2)
== END | disposition still patient (30) ==
LOC: ONC 08:54
PROVIDERS: ATTEND Internal Medicine Hematology & Oncology
DX: C21.0 Malignant neoplasm of anus, unspecified (principal); D64.9 Anemia, unspecified; I10 Essential (primary) hypertension; E78.00 Pure hypercholesterolemia, unspecified; Z86.2 Personal history of diseases of the blood and blood-forming organs and certain disorders involving the immune mechanism; Z86.718 Personal history of other venous thrombosis and embolism; Z86.711 Personal history of pulmonary embolism
CPT/HCPCS: 80053; 82728; 83540; 83550; 85025; G0463; 99213

== ENCOUNTER 2021-11-06 13:00 | Day surgery (SDC) | payer MEDICARE ==
[~2021-11-06] VITALS: Ht 172.7 cm; Wt 79.4 kg
[~2021-11-06 13:00] MED LIST changes: +LIDOCAINE 1% INJ 20 ML VIAL INJ ONE; +LIDOCAINE 1% INJ 20 ML VIAL ONE
[2021-11-06 13:02] VITALS: BP 129/79
--- NOTE | 2021-11-07 00:19 | OPERATIVE REPORT ---
DATE OF SERVICE: 11/06/2021 INDICATIONS: The patient is a 66-year-old man, who has had an implantable loop recorder in place that has now reached end of life and the patient desires that this be removed and not be replaced. Informed consent was obtained and the procedure was carried out today. DESCRIPTION OF PROCEDURE: [facility] The left prepectoral area is the site of implantable loop recorder implantation. This was prepared and draped in the usual sterile fashion. Lidocaine 1% was used for local anesthesia. A small incision was made at the medial end of the device and we were able to remove the device without difficulty. There was no significant blood loss. The skin edges were secured using Dermabond and Steri-Strips. He tolerated the procedure well. Job ID: [id number] DocumentID: [id number] Dictated Date: 11/06/2021 14:57:34 Residential Service Technician Date: 11/07/2021 00:18:40 Dictated By: LINDA EATON MD, MA, FACP, FACC,
== END 2021-11-06 15:15 ==
LOC: CATH 13:00
PROVIDERS: ATTEND Internal Medicine Cardiovascular Disease
DX: I48.0 Paroxysmal atrial fibrillation (principal); I65.29 Occlusion and stenosis of unspecified carotid artery; Z86.718 Personal history of other venous thrombosis and embolism; N52.9 Male erectile dysfunction, unspecified
CPT/HCPCS: 33286

== ENCOUNTER → 2021-12-21 | Outpatient (CLI) | payer MEDICARE ==
[~2021-12-21] MED LIST changes: -LIDOCAINE 1% INJ 20 ML VIAL INJ ONE; -LIDOCAINE 1% INJ 20 ML VIAL ONE
== END ==
LOC: ONC 09:34
PROVIDERS: ATTEND Internal Medicine Hematology & Oncology
DX: C21.0 Malignant neoplasm of anus, unspecified (principal); I48.3 Typical atrial flutter; D64.9 Anemia, unspecified; K21.9 Gastro-esophageal reflux disease without esophagitis; D50.9 Iron deficiency anemia, unspecified; E78.00 Pure hypercholesterolemia, unspecified; I10 Essential (primary) hypertension; Z86.73 Personal history of transient ischemic attack (TIA), and cerebral infarction without residual deficits; Z86.718 Personal history of other venous thrombosis and embolism; Z86.711 Personal history of pulmonary embolism; Z86.2 Personal history of diseases of the blood and blood-forming organs and certain disorders involving the immune mechanism
CPT/HCPCS: 36415; 80053; 85025

== ENCOUNTER → 2021-12-26 | Outpatient (CLI) | payer MEDICARE ==
[2021-12-21 12:14] LABS: BASOPHILS % (AUTO) 1 % (0-10); EOSINOPHILS # (AUTO) 0.1 10^3/uL (0.0-0.3); EOSINOPHILS % (AUTO) 1 % (0-10); HEMATOCRIT 40 % (40-54); HEMOGLOBIN 13.3 g/dL (13.3-17.7); LYMPHOCYTES # (AUTO) 1.6 10^3/uL (1.0-4.0); LYMPHOCYTES % (AUTO) 26 % (12-44); MEAN CORPUSCULAR HEMOGLOBIN 29 pg (25-34); MEAN CORPUSCULAR HGB CONC 33 g/dL (32-36); MEAN CORPUSCULAR VOLUME 87 fL (80-99); MEAN PLATELET VOLUME 9.6 fL (9.0-12.2); MONOCYTES # (AUTO) 0.7 10^3/uL (0.0-1.0); MONOCYTES % (AUTO) 11 % (0-12); NEUTROPHILS # (AUTO) 3.7 10^3/uL (1.8-7.8); NEUTROPHILS % (AUTO) 61 % (42-75); PLATELET COUNT 216 10^3/uL (130-400); WHITE BLOOD COUNT 6.1 10^3/uL (4.3-11.0)
[2021-12-21 12:34] LABS: ALBUMIN 3.9 GM/DL (3.2-4.5); BILIRUBIN,TOTAL 0.6 MG/DL (0.1-1.0); CREATININE SERUM 1.1 MG/DL (0.60-1.30); POTASSIUM 4.6 MMOL/L (3.6-5.0); TOTAL PROTEIN 6.8 GM/DL (6.4-8.2)
== END ==
LOC: ONC 08:42
PROVIDERS: ATTEND Internal Medicine Hematology & Oncology
DX: C21.0 Malignant neoplasm of anus, unspecified (principal); D64.9 Anemia, unspecified; I48.3 Typical atrial flutter; N52.9 Male erectile dysfunction, unspecified; E78.00 Pure hypercholesterolemia, unspecified; I10 Essential (primary) hypertension; Z86.718 Personal history of other venous thrombosis and embolism; Z86.711 Personal history of pulmonary embolism; Z95.0 Presence of cardiac pacemaker
CPT/HCPCS: 36415; 80053; 85025; 99213

== ENCOUNTER → 2022-12-26 | Outpatient (CLI) | payer MEDICARE ==
[2022-12-26 09:07] LABS: BASOPHILS % (AUTO) 0 % (0-10); EOSINOPHILS # (AUTO) 0.1 10^3/uL (0.0-0.3); EOSINOPHILS % (AUTO) 1 % (0-10); HEMATOCRIT 40 % (40-54); HEMOGLOBIN 13.5 g/dL (13.3-17.7); LYMPHOCYTES # (AUTO) 1.5 10^3/uL (1.0-4.0); LYMPHOCYTES % (AUTO) 28 % (12-44); MEAN CORPUSCULAR HEMOGLOBIN 29 pg (25-34); MEAN CORPUSCULAR HGB CONC 34 g/dL (32-36); MEAN CORPUSCULAR VOLUME 86 fL (80-99); MEAN PLATELET VOLUME 9.5 fL (9.0-12.2); MONOCYTES # (AUTO) 0.4 10^3/uL (0.0-1.0); MONOCYTES % (AUTO) 8 % (0-12); NEUTROPHILS # (AUTO) 3.4 10^3/uL (1.8-7.8); NEUTROPHILS % (AUTO) 63 % (42-75); PLATELET COUNT 220 10^3/uL (130-400); WHITE BLOOD COUNT 5.4 10^3/uL (4.3-11.0)
[2022-12-26 09:18] LABS: ALBUMIN 3.8 GM/DL (3.2-4.5); POTASSIUM 4.1 MMOL/L (3.6-5.0)
[2022-12-26 09:19] LABS: CALCIUM 9.1 MG/DL (8.5-10.1)
[2022-12-26 09:20] LABS: TOTAL PROTEIN 7.1 GM/DL (6.4-8.2)
[2022-12-26 09:22] LABS: BILIRUBIN,TOTAL 0.6 MG/DL (0.1-1.0)
[2022-12-26 09:24] LABS: CREATININE SERUM 1.21 MG/DL (0.60-1.30)
== END ==
LOC: ONC 07:39
PROVIDERS: ATTEND Internal Medicine Hematology & Oncology
DX: C21.0 Malignant neoplasm of anus, unspecified (principal); D50.9 Iron deficiency anemia, unspecified; Z86.2 Personal history of diseases of the blood and blood-forming organs and certain disorders involving the immune mechanism; Z86.718 Personal history of other venous thrombosis and embolism; Z86.73 Personal history of transient ischemic attack (TIA), and cerebral infarction without residual deficits; I48.3 Typical atrial flutter; N52.9 Male erectile dysfunction, unspecified; Z95.810 Presence of automatic (implantable) cardiac defibrillator; K21.9 Gastro-esophageal reflux disease without esophagitis; E78.00 Pure hypercholesterolemia, unspecified
CPT/HCPCS: 36415; 80053; 85025